=== PATIENT | male | born 1960 | race Caucasian/White ===

== ENCOUNTER 2020-07-08 12:29 | Emergency (ER) | payer OTHER, SELFPAY ==
[2020-07-08 12:53] VITALS: BP 123/81; PULSE 92; RESP 17; TEMP 36.6; O2SAT 97
--- NOTE | 2020-07-08 13:10 | ED_ITS ---
HPI - Nausea/Vomiting/Diarrhea General Chief complaint: General Medical Stated complaint: diarreha Time Seen by Provider: 07/08/20 13:01 Source: patient Mode of arrival: ambulatory Limitations: no limitations History of Present Illness HPI Narrative: 59-year-old male previously healthy here with diarrhea x6 days. Patient reports more than 12 episodes per day of nonbloody stool. No abdominal pain. He has tried going to work twice but with any exertion he starts to feel very lightheaded like he might pass out with associated nausea. He had 1 episode of vomiting with this occurred. No fevers or chills. No recent travel. No sick contacts. No recent antibiotic use. Associated nausea: No Related Data Previous Rx's Medication Instructions Recorded ketoconazole 200 mg tablet 200 mg PO DAILY #30 tab 05/24/20 Allergies Allergy/AdvReac Type Severity Reaction Status Date / Time No Known Allergies Allergy Verified 05/24/20 14:45 Review of Systems Review of Systems: Yes all other systems are reviewed and are negative Constitutional: Constitutional: Reports no additional constitutional complaints, Denies body ache(s), Denies chills, Denies fever(s), Denies headache(s) and Denies weakness Eyes: Eyes: Reports no additional eye complaints and Denies change in vision ENT: Reports system reviewed and no additional complaints, except as documented, Denies dizziness, Denies headache(s), Denies nasal congestion, Denies nasal discharge and Denies neck pain Cardiovascular: Cardiovascular: Reports no additional cardiovascular comp laints, Denies chest pain, Denies leg edema and Denies dyspnea Respiratory: Respiratory: Reports no additional respiratory complaints, Denies cough and Denies dyspnea Gastrointestinal: Gastrointestinal: Reports no additional gastrointestinal complaints, Denies abdominal pain, Reports diarrhea, Denies nausea and Denies vomiting Genitourinary: Genitourinary: Denies urinary incontinence Musculoskeletal: Musculoskeletal: Reports no additional musculoskeletal complaints, Denies back pain, Denies arthralgias, Denies joint swelling, Denies neck pain, Denies numbness and Denies tingling Integumentary/Breasts: Skin/Breast: Reports system reviewed and no additional complaints, except as docu and Denies rash Neurologic: Reports system reviewed and no additional complaints, except as documented, Denies Abnormal speech present, Denies dizziness, Denies headache(s), Denies numbness, Denies tingling and Denies weakness [facility] Past Medical History Attestation statement: The following information was validated with the patient. Source: old records reviewed and nursing notes reviewed Social History Social History Alcohol intake: current Alcohol intake frequency: holidays/special occasions only Smoking Status: Never smoker Use of substances other than those prescribed or required for medical reasons: No Advance Directives: Yes Advance Directives Information Provided: Yes Advance Directives on File: No Physical Exam Vital Signs: Vital Signs: Last Vital Signs Temp 98.5 F 07/08/20 14:17 Pulse 82 07/08/20 14:17 Resp 19 07/08/20 14:17 BP 120/83 07/08/20 14:17 Pulse Ox 98 07/08/20 14:17 Body Mass Index 35.2 Const: General: cooperative, healthy appearing, comfortable and no acute distress Orientation/consciousness: patient oriented x3 Limitations: no limitations HENMT: Head: Yes normal to inspection Ears: hearing grossly normal bilaterally General nose exam: Normal external nose present Face and sinus: Yes normal facial exam Mouth: Normal oral and palatal mucosa present Throat: Yes posterior oropharynx normal Eyes: General: appearance normal, both eyes and all related structures Pupils: Equal, round and reactive pupils present Neck: Neck: Yes normal visual inspection Chest: Chest palpation & inspection: normal inspection of the chest Resp: Effort & Inspection: normal respiratory effort Auscultation: clear to auscultation bilaterally Cardio: Rate: regular rate Rhythm: regular rhythm Peripheral pulses: Peripheral pulses 2+ throughout GI: Inspection: Yes normal to inspection Palpation (GI): Soft to palpation and nontender Auscultation: normal bowel sounds Back/Spine/Pelvis: Thoracic/Lumbar Spine: thoracic and lumbar spine normal to inspection Skin: General skin exam: no rashes or lesions noted Neuro: General: patient oriented x3, no focal motor deficits and normal sensation to monofilament Cranial nerves: Yes Equal, round and reactive pupils present Cognition (Neuro): normal cognition Speech: No Abnormal speech present Gait exam (Neuro): Normal gait present Motor exam (neuro): 5/5 motor strength present throughout Extrem: General: Yes normal to inspection Course Course Course Narrative: 59-year-old male here with diarrhea x6 days with episodes of lightheadedness and nausea with exertion. Will need labs, UA, stool studies, orthostatics vital signs. 1600-labs unremarkable. UA does show concentrated urine so the patient likely has mild dehydration. Orthostatics negative. EKG shows no acute finding. Stool studies are pending. Patient received a L of fluid and feels much better. Will discharge home pending stool studies. Reviewed worrisome signs and symptoms such as severe abdominal pain, to her more vomiting episodes, fever greater than 100.4 when to return to the emergency department. Comfortable discharge home. MDM - Nausea/Vomiting/Diarrhea Differential Diagnosis Differential diagnosis: Likely food poisoning, gastroenteritis, clostridium diff icile infection and dehydration Medical Records Attestation: I reviewed the patient's medical records. Lab Data Attestation: I reviewed the patient's lab results. Result diagrams: 07/08/20 13:32 07/08/20 14:28 Labs: Lab Results 07/08/20 07/08/20 07/08/20 Range/Units 13:32 13:32 14:20 WBC 9.1 (4.8-10.8) X10*3/uL RBC 5.09 (4.60-5.80) X10*6/uL Hgb 14.7 (14.0-18.0) g/dl Hct 43.3 (42-52) % MCV 85.1 (80-98) fL MCH 28.9 (27.0-33.0) pg MCHC 33.9 (31.0-36.0) g/dl RDW 13.2 (11.0-16.0) % Plt Count 273 (160-400) X10*3/uL MPV 9.0 L (9.4-12.4) fL Immature Gran % (Auto) 0.2 (0.0-0.4) % Neut % (Auto) 74.1 H (45-73) % Lymph % (Auto) 16.7 L (20-40) % [place] % (Auto) 7.3 (2-11) % Eos % (Auto) 1.5 (0-4) % Baso % (Auto) 0.2 (0-2) % Lymph # (Auto) 1.5 (1.2-4.9) X10*3/uL [place] # (Auto) 0.7 (0.1-1.2) X10*3/uL Eos # (Auto) 0.1 (0.0-0.4) X10*3/uL Baso # (Auto) 0.0 (0.0-0.2) X10*3/uL Abs Immat Gran (auto) 0.02 (0.00-0.03) X10*3/uL Absolute Neuts (auto) 6.8 (2.0-8.3) X10*3/uL Absolute Nucleated RBC 0.000 (0.0-0.012) X10*3/uL Nucleated RBC % (auto) 0.0 (0.0-0.2) /100WBC Sodium (135-145) mmol/L Potassium (3.3-5.1) mmol/L Chloride (96-108) mmol/L Carbon Dioxide (22-29) mmol/L Anion Gap (12-20) BUN (9-16) mg/dL Creatinine (0.5-1.4) mg/dL Estim Creat Clear Calc Estimated GFR Random Glucose (60-115) mg/dL Calcium (8.4-10.2) mg/dL Magnesium Cancelled Total Bilirubin Cancelled Direct Bilirubin Cancelled AST Cancelled ALT Cancelled Alkaline Phosphatase Cancelled Total Protein Cancelled Albumin Cancelled Urine Color YELLOW Urine Appearance CLOUDY Urine pH 6.0 (5.0-8.0) Ur Specific [place] >= 1.030 H (1.005-1.025) Urine Protein TRACE (NEG-TRACE) MG/DL Urine Glucose (UA) NEG (NEG) MG/DL Urine Ketones NEG (NEG) MG/DL Urine Blood NEG (NEG) Urine Nitrite NEG (NEG) Ur Leukocyte Esterase NEG (NEG) Stool Leukocytes, Qual (NEGATIVE) 07/08/20 07/08/20 Range/Units 14:22 14:28 WBC (4.8-10.8) X10*3/uL RBC (4.60-5.80) X10*6/uL Hgb (14.0-18.0) g/dl Hct (42-52) % MCV (80-98) fL MCH (27.0-33.0) pg MCHC (31.0-36.0) g/dl RDW (11.0-16.0) % Plt Count (160-400) X10*3/uL MPV (9.4-12.4) fL Immature Gran % (Auto) (0.0-0.4) % Neut % (Auto) (45-73) % Lymph % (Auto) (20-40) % [place] % (Auto) (2-11) % Eos % (Auto) (0-4) % Baso % (Auto) (0-2) % Lymph # (Auto) (1.2-4.9) X10*3/uL [place] # (Auto) (0.1-1.2) X10*3/uL Eos # (Auto) (0.0-0.4) X10*3/uL Baso # (Auto) (0.0-0.2) X10*3/uL Abs Immat Gran (auto) (0.00-0.03) X10*3/uL Absolute Neuts (auto) (2.0-8.3) X10*3/uL Absolute Nucleated RBC (0.0-0.012) X10*3/uL Nucleated RBC % (auto) (0.0-0.2) /100WBC Sodium 141 (135-145) mmol/L Potassium 3.9 (3.3-5.1) mmol/L Chloride 110 H (96-108) mmol/L Carbon Dioxide 24 (22-29) mmol/L Anion Gap 11 L (12-20) BUN 18 H (9-16) mg/dL Creatinine 1.02 (0.5-1.4) mg/dL Estim Creat Clear Calc 100.8 Estimated GFR > 60 Random Glucose 98 (60-115) mg/dL Calcium 8.8 (8.4-10.2) mg/dL Magnesium 2.4 Total Bilirubin 0.6 Direct Bilirubin 0.3 AST 34 ALT 73 H Alkaline Phosphatase 61 Total Protein 6.4 L Albumin 4.1 Urine Color Urine Appearance Urine pH (5.0-8.0) Ur Specific [place] (1.005-1.025) Urine Protein (NEG-TRACE) MG/DL Urine Glucose (UA) (NEG) MG/DL Urine Ketones (NEG) MG/DL Urine Blood (NEG) Urine Nitrite (NEG) Ur Leukocyte Esterase (NEG) Stool Leukocytes, Qual NEGATIVE (NEGATIVE) ECG Data Attestation: I personally reviewed and interpreted this ECG as follows: ECG interpretation date: 07/08/20 ECG interpretation time: 14:12 Interpretation: SR with rate 86, normal pr, normal qrs, normal qtc Discharge Plan Discharge Clinical Impression: Diarrhea Qualifiers: Diarrhea type: unspecified type Qualified Code(s): R19.7 - Diarrhea, unspecified Patient Disposition: Home, Self-Care Instructions: Acute Diarrhea (ED) Additional Instructions: We will call you if your stool studies show any bacteria or virus that needs to be treated Increase fluids as much as possible. Change positions slowly Return for severe abdominal pain, two more vomiting episodes, fever greater than 100.4 or black or bloody stools Prescriptions: No Action ketoconazole 200 mg tablet 200 mg PO DAILY Qty: 30 RF: 1 Referrals: Jordan Dominguez, PSYCHOLOGY TECHNICIAN-BC [Primary Care Provider] - 2 days Interventions: ED Discharge Assessment Last Done: 07/08/20 16:19 Discharge Date/Time: 07/08/20 16:19
[2020-07-08 13:12] VITALS: BP 123/81; PULSE 92; RESP 17; TEMP 36.6; O2SAT 97; BMI 35.2
[2020-07-08 13:38] VITALS: BP 127/82; PULSE 82
[2020-07-08 13:38] LABS: MANUAL DIFF FLAG NO
--- NOTE | 2020-07-08 13:38 | ECG_ITS ---
Test Reason : GENERAL MEDICINE Blood Pressure : / mmHG Vent. Rate : 086 BPM Atrial Rate : 086 BPM P-R Int : 122 ms QRS Dur : 094 ms QT Int : 362 ms P-R-T Axes : 254 -09 -36 degrees QTc Int : 433 ms Possible ectopic atrial rhythm Minimal voltage criteria for LVH, may be normal variant Nonspecific T wave abnormality Abnormal ECG No previous ECGs available Referred By: Shira Sheppard Electronically Signed By:UCHE KHANNA
[2020-07-08 13:39] VITALS: BP 129/84; PULSE 83
[2020-07-08 13:40] VITALS: BP 117/79; PULSE 94
[2020-07-08 13:41] LABS: Basophils Percent Auto 0.2 % (0-2); Eosinophils Absolute Auto 0.1 X10*3/uL (0.0-0.4); Eosinophils Percent Auto 1.5 % (0-4); Hematocrit 43.3 % (42-52); Hemoglobin 14.7 g/dl (14.0-18.0); Imm Gran Abs Auto 0.02 X10*3/uL (0.00-0.03); Imm Gran Pct Auto 0.2 % (0.0-0.4); Lymphocytes Absolute Auto 1.5 X10*3/uL (1.2-4.9); Lymphocytes Percent Auto 16.7 % (20-40); Mean Corpuscular HGB Conc 33.9 g/dl (31.0-36.0); Mean Corpuscular Hemoglobin 28.9 pg (27.0-33.0); Mean Corpuscular Volume 85.1 fL (80-98); Monocytes Absolute Auto 0.7 X10*3/uL (0.1-1.2); Monocytes Percent Auto 7.3 % (2-11); Neutrophils Absolute Auto 6.8 X10*3/uL (2.0-8.3); Neutrophils Percent Auto 74.1 % (45-73); Platelet Count 273 X10*3/uL (160-400); Red Blood Count 5.09 X10*6/uL (4.60-5.80); Red Cell Distribution Width 13.2 % (11.0-16.0); White Blood Count 9.1 X10*3/uL (4.8-10.8)
[2020-07-08 14:17] VITALS: BP 120/83; PULSE 82; RESP 19; TEMP 36.9; O2SAT 98
[2020-07-08 14:38] LABS: Appearance Urine CLOUDY; Color Urine YELLOW; Glucose Urine UA NEG (NEG); Leukocyte Esterase Urine NEG (NEG); Nitrite Urine NEG (NEG); Specific Gravity - Urine >= 1.030 (1.005-1.025); Urine Blood NEG (NEG); Urine Ketones NEG (NEG); Urine Protein TRACE MG/DL (NEG-TRACE)
[2020-07-08 14:57] LABS: Leukocytes Stool Qualitative NEGATIVE (NEGATIVE)
[2020-07-08 15:04] LABS: Alanine Aminotransferase 73 U/L (0-40); Albumin Level 4.1 g/dL (3.5-5.0); Alkaline Phosphatase 61 U/L (39-117); Anion Gap 11 (12-20); Aspartate Amino Transferase 34 U/L (5-37); Bilirubin Direct 0.3 mg/dL (0.0-0.5); Bilirubin Total 0.6 mg/dL (0.0-1.0); Blood Urea Nitrogen 18 mg/dL (9-16); Calcium 8.8 mg/dL (8.4-10.2); Carbon Dioxide 24 mmol/L (22-29); Chloride 110 mmol/L (96-108); Creatinine Clr Calc Pharmacy 100.8; Estimated Glomerular Filt Rate > 60; Glucose Random 98 mg/dL (60-115); Magnesium 2.4 mg/dL (1.6-2.6); Potassium 3.9 mmol/L (3.3-5.1); Sodium 141 mmol/L (135-145); Total Protein 6.4 g/dL (6.5-8.0)
[2020-07-08] MEDS: 0.9 % Sodium Chloride 1,000 ML 999 ML IV (15:30)
[2020-07-09 07:47] LABS: CDIFF Ag Negative (Negative); CDIFF Internal ctrl Dots and bkg OK (V); CDiff Toxin Negative (Negative)
== END 2020-07-08 16:19 | disposition home or self-care (01) ==
PROVIDERS: Nurse Practitioner Family; Emergency Provider Emergency Medicine; PCP Nurse Practitioner Family
DX: A07.1 Giardiasis [lambliasis] (principal); R19.7 Diarrhea, unspecified; R42 Dizziness and giddiness
CPT/HCPCS: 36415; 80048; 80076; 81003; 83735; 85025; 87045; 87046; 87177; 87209; 87324; 87449; 89055; 93005; 96360; 99284; 99285

== ENCOUNTER 2020-07-14 08:37 | Emergency (ER) | payer OTHER, SELFPAY ==
--- NOTE | ~2020-07-14 | CT_ITS ---
EXAMINATION: CT ABDOMEN AND PELVIS WITH CONTRAST CLINICAL INFORMATION: Diarrhea. Question colitis. COMPARISON: None. TECHNIQUE: Multidetector CT volumetric acquisition of the abdomen and pelvis was performed after the administration of 85 mL of intravenous Omnipaque 350. 5 minute delayed imaging through the liver was also performed. The data set was reformatted in the sagittal and coronal planes and reviewed on an independent workstation. This CT examination was performed using dose optimization techniques as appropriate, variously including the following: *Automated exposure control *Adjustment of mA and/or kV according to patient size (this includes techniques or standardized protocols for targeted exams where dose is matched to indication/reason for exam; i.e. extremities or head) *Use of iterative reconstruction technique DLP: 1245.00 mGy-cm. FINDINGS: LOWER CHEST: Included lung bases unremarkable. LIVER, GALLBLADDER, BILIARY TREE: Liver normal size and diffusely lower in attenuation compared to the spleen, consistent with hepatic steatosis. Geographic area of relative hyper density is seen in segment 1, consistent with focal fatty sparing. In the subcapsular segment 6, a thin-walled 3.9 x 3.6 cm fluid attenuation mass is seen, consistent with a cyst. No suspicious solid mass or intra-or extrahepatic ductal dilatation. Hepatic and portal veins patent. Gallbladder well distended and within normal limits. PANCREAS: Diffusely atrophic with fatty infiltration seen. No ductal dilatation, mass, or surrounding stranding. SPLEEN: Normal size and appearance. Splenic vein patent. ADRENAL GLANDS AND KIDNEYS: Adrenal glands normal. Kidneys bilaterally symmetric in size and function. There are several bilateral variably sized thin-walled nonenhancing cysts in the kidneys bilaterally. No suspicious focal mass, hydronephrosis, nephrolithiasis or perinephric stranding. URETERS AND BLADDER: Ureters decompressed and within normal limits. Bladder partially distended and within normal limits. PELVIC ORGANS: Unremarkable. GASTROINTESTINAL TRACT: Normal. Small and large bowel loops decompressed and unremarkable. No evidence of abnormal colonic wall thickening or pericolonic fat stranding. Appendix in right lower quadrant normal. ABDOMINAL WALL: There is a small fat-containing umbilical hernia. Small bilateral fat-containing direct inguinal hernias are also seen. LYMPHOVASCULAR STRUCTURES: Abdominal aorta normal in caliber. No periaortic collections. No abdominal or pelvic adenopathy or free fluid collection. BONES: Moderate degenerative disc disease at L5-S1. Mild vertebral spondylosis throughout the lumbar spine. Moderate vertebral spondylosis in lower thoracic spine. Bilateral L5 pars defects seen. CT/CT abdomen pelvis w con IMPRESSION: 1. No evidence of acute colitis. Small and large bowel loops are decompressed and unremarkable. 2. Hepatic steatosis with geographic area of fatty sparing in the caudate lobe. 3. Atrophic pancreas with fatty infiltration seen. 4. Multiple bilateral renal cysts. 5. Small fat-containing umbilical and bilateral inguinal hernias. 6. 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 Moderate degenerative disc disease at L5-S1.
[2020-07-14 09:03] VITALS: BP 139/96; PULSE 86; RESP 18; TEMP 37.1; O2SAT 96; BMI 33.9
--- NOTE | 2020-07-14 09:49 | ED.NAVMDI ---
HPI - Nausea/Vomiting/Diarrhea General Chief complaint: Nausea/Vomiting/Diarrhea Stated complaint: DIARRHEA Time Seen by Provider: 07/14/20 09:15 Source: patient Mode of arrival: ambulatory Limitations: no limitations History of Present Illness HPI Narrative: Patient presents to the ED for diarrhea for the past 12 days. Patient states every time he eats something he has a little lower abdominal discomfort than has diarrhea. states patient has diarrhea all day every day. Patient was seen in recently on july 08 and blood work was normal and C diff and stool culture came back normal. Patient denies any fever, chills, recent long trip, any new antibiotic, or any recent hospital admissions. no one else at home having similar symptoms. Patient states vaccinated to COVID virus. Related Data Previous Rx's Medication Instructions Recorded ketoconazole 200 mg tablet 200 mg PO DAILY #30 tab 05/24/20 ondansetron HCl [Zofran] 4 mg PO Q6H PRN #8 tab 07/14/20 psyllium husk (with sugar) 1 tbsp PO BID 14 Days #1368 g 07/14/20 [Metamucil (with sugar)] Allergies Allergy/AdvReac Type Severity Reaction Status Date / Time No Known Allergies Allergy Verified 05/24/20 14:45 Review of Systems Review of Systems: Yes all other systems are reviewed and are negative Constitutional: Constitutional: Reports as per HPI and Reports no additional constitutional complaints Eyes: Eyes: Reports as per HPI and Reports no additional eye complaints ENT: Reports system reviewed and no additional complaints, except as documented and Reports as per HPI Cardiovascular: Cardiovascular: Reports as per HPI, Reports no additional cardiovascular complaints, Denies chest pain, Denies chest pain at rest and Denies dyspnea Respiratory: Respiratory: Reports as per HPI, Reports no additional respiratory complaints and Denies dyspnea Gastrointestinal: Gastrointestinal: Reports as per HPI, Reports no additional gastrointestinal complaints, Reports abdominal pain, Denies belching, Denies melena, Denies bloating, Denies hematochezia, Denies change in bowel habits, Denies tenesmus, Denies change in stool character, Denies coffee ground emesis, Denies constipation, Denies GI cramping, Denies excessive flatus, Denies early satiety, Denies dyspepsia, Denies heartburn, Denies fecal incontinence, Reports diarrhea, Denies loose stools, Denies nausea, Denies vomiting and Denies hematemesis Musculoskeletal: Musculoskeletal: Reports no additional musculoskeletal complaints and Reports as per HPI Neurologic: Reports system reviewed and no additional complaints, except as documented and Reports as per HPI Psychiatric: Psychiatric: Reports no additional psychiatric complaints and Reports as per HPI [facility] Past Medical History Medical History (Updated 07/14/20 @ 12:24 by CHALINO Lua) Hepatomegaly Social History Social History Alcohol intake: current Alcohol intake frequency: does not drink Patient Tobacco Use Status: Never used Tobacco Use of substances other than those prescribed or required for medical reasons: No Advance Directives: Yes Advance Directives Information Provided: Yes Advance Directives on File: No Physical Exam Vital Signs: Vital Signs: Last Vital Signs Temp 98.7 F 07/14/20 09:03 Pulse 73 07/14/20 10:59 Resp 16 07/14/20 10:59 BP 126/84 07/14/20 10:59 Pulse Ox 98 07/14/20 10:59 Body Mass Index 33.9 Const: General: cooperative, healthy appearing, comfortable, no acute distress, well developed, alert, awake and Physically active Orientation/consciousness: patient oriented x3 HENMT: Head: Yes normal to inspection, Yes No palpable skull fracture present, Yes normocephalic and No atraumatic Eyes: General: appearance normal, both eyes and all related structures Neck: Neck: Yes normal visual inspection, Yes full ROM, Yes no lymphadenopathy, Yes no meningeal signs, Yes trachea midline, Yes supple and No tender Chest: Chest palpation & inspection: normal inspection of the chest and normal palpation of entire chest wall Resp: Effort & Inspection: normal respiratory effort and able to speak in complete sentences Auscultation: clear to auscultation bilaterally Cardio: Jugular venous distension: no JVD Heart sounds: S1 normal heart sound present and S2 normal heart sound present GI: Inspection: Yes normal to inspection and No abdominal wall ecchymosis Palpation (GI): Soft to palpation, not firm, nontender, no guarding and not rigid : General: No CVA tenderness and Yes no CVA tenderness Back/Spine/Pelvis: Back: no CVA tenderness, No CVA tenderness and No back tenderness Skin: General skin exam: no rashes or lesions noted and elasticity normal Neuro: General: patient oriented x3, gait normal, no meningeal signs and CN's II-XI intact bilaterally Cranial nerves: Yes CN's II-XII intact bilaterally Extrem: General: Yes normal to inspection and Yes full ROM Psych: Appearance: grossly normal, well kempt and not disheveled Course Course Course Narrative: Patient have labs redrawn to evaluate for dehydration. Patient will have COVID swab. Will send patient for CT scan to rule out any colitis. No need to repeat C diff or stool culture that were negative from last visit. Reevaluation(s) Reevaluation #1: Labs came back normal. Negative for elevated blood cell count or electrolyte abnormality. Abdominal CT scan does not show any colitis. Abdominal CT scan does not show any acute/medical/surgical etiology. Patient will be discharged with Metamucil. Patient educated on brat diet. 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 Patient given copy of labs and imaging to follow-up with PCP. states he has appointment tomorrow with PCP MDM - Nausea/Vomiting/Diarrhea MDM Narrative Medical decision making narrative: Diarrhea Lab Data Result diagrams: 07/14/20 10:00 07/14/20 10:00 Labs: Lab Results 07/14/20 07/14/20 07/14/20 Range/Units 10:00 10:00 10:00 WBC 9.7 (4.8-10.8) X10*3/uL RBC 5.30 (4.60-5.80) X10*6/uL Hgb 15.3 (14.0-18.0) g/dl Hct 45.4 (42-52) % MCV 85.7 (80-98) fL MCH 28.9 (27.0-33.0) pg MCHC 33.7 (31.0-36.0) g/dl RDW 13.2 (11.0-16.0) % Plt Count 282 (160-400) X10*3/uL MPV 9.2 L (9.4-12.4) fL Immature Gran % (Auto) 0.3 (0.0-0.4) % Neut % (Auto) 73.4 H (45-73) % Lymph % (Auto) 18.1 L (20-40) % [place] % (Auto) 6.6 (2-11) % Eos % (Auto) 1.2 (0-4) % Baso % (Auto) 0.4 (0-2) % Lymph # (Auto) 1.8 (1.2-4.9) X10*3/uL [place] # (Auto) 0.6 (0.1-1.2) X10*3/uL Eos # (Auto) 0.1 (0.0-0.4) X10*3/uL Baso # (Auto) 0.0 (0.0-0.2) X10*3/uL Abs Immat Gran (auto) 0.03 (0.00-0.03) X10*3/uL Absolute Neuts (auto) 7.1 (2.0-8.3) X10*3/uL Absolute Nucleated RBC 0.000 (0.0-0.012) X10*3/uL Nucleated RBC % (auto) 0.0 (0.0-0.2) /100WBC PT (10.8-13.0) SEC INR (0.9-1.1) APTT (24.1-38.0) SEC Sodium 141 (135-145) mmol/L Potassium 3.8 (3.3-5.1) mmol/L Chloride 108 (96-108) mmol/L Carbon Dioxide 22 (22-29) mmol/L Anion Gap 15 (12-20) BUN 14 (9-16) mg/dL Creatinine 1.02 (0.5-1.4) mg/dL Estim Creat Clear Calc 98.8 Estimated GFR > 60 Random Glucose 84 (60-115) mg/dL Calcium 9.0 (8.4-10.2) mg/dL Magnesium 2.2 (1.6-2.6) mg/dL Total Bilirubin 0.6 (0.0-1.0) mg/dL Direct Bilirubin 0.2 (0.0-0.5) mg/dL AST 25 (5-37) U/L ALT 39 (0-40) U/L Alkaline Phosphatase 72 (39-117) U/L Total Protein 6.3 L (6.5-8.0) g/dL Albumin 3.9 (3.5-5.0) g/dL Lipase 26 (8-78) U/L COVID-19 (ANNE) Negative (Negative) COVID-19 Clin Com See Note 07/14/20 Range/Units 10:00 WBC (4.8-10.8) X10*3/uL RBC (4.60-5.80) X10*6/uL Hgb (14.0-18.0) g/dl Hct (42-52) % MCV (80-98) fL MCH (27.0-33.0) pg MCHC (31.0-36.0) g/dl RDW (11.0-16.0) % Plt Count (160-400) X10*3/uL MPV (9.4-12.4) fL Immature Gran % (Auto) (0.0-0.4) % Neut % (Auto) (45-73) % Lymph % (Auto) (20-40) % [place] % (Auto) (2-11) % Eos % (Auto) (0-4) % Baso % (Auto) (0-2) % Lymph # (Auto) (1.2-4.9) X10*3/uL [place] # (Auto) (0.1-1.2) X10*3/uL Eos # (Auto) (0.0-0.4) X10*3/uL Baso # (Auto) (0.0-0.2) X10*3/uL Abs Immat Gran (auto) (0.00-0.03) X10*3/uL Absolute Neuts (auto) (2.0-8.3) X10*3/uL Absolute Nucleated RBC (0.0-0.012) X10*3/uL Nucleated RBC % (auto) (0.0-0.2) /100WBC PT 13.1 H (10.8-13.0) SEC INR 1.1 (0.9-1.1) APTT 35.2 (24.1-38.0) SEC Sodium (135-145) mmol/L Potassium (3.3-5.1) mmol/L Chloride (96-108) mmol/L Carbon Dioxide (22-29) mmol/L Anion Gap (12-20) BUN (9-16) mg/dL Creatinine (0.5-1.4) mg/dL Estim Creat Clear Calc Estimated GFR Random Glucose (60-115) mg/dL Calcium (8.4-10.2) mg/dL Magnesium (1.6-2.6) mg/dL Total Bilirubin (0.0-1.0) mg/dL Direct Bilirubin (0.0-0.5) mg/dL AST (5-37) U/L ALT (0-40) U/L Alkaline Phosphatase (39-117) U/L Total Protein (6.5-8.0) g/dL Albumin (3.5-5.0) g/dL Lipase (8-78) U/L COVID-19 (ANNE) (Negative) COVID-19 Clin Com Discharge Plan Discharge Clinical Impression: Diarrhea Patient Disposition: Home, Self-Care Instructions: Chronic Diarrhea (ED) Additional Instructions: Return to the ED immediately for blood in stool, dizziness, weakness, low blood pressure, severe abdominal pain, flank pain, fever, chills, or any other concerning symptoms. Recommend BRAT ( Bananas, Rice, Apple Sauce, [place]) Diet Prescriptions: New Metamucil (with sugar) 3.4 gram/12 gram powder 1 tbsp PO BID 14 Days Qty: 1368 RF: 0 ondansetron HCl [Zofran] 4 mg tablet 4 mg PO Q6H PRN (Reason: nausea) Qty: 8 RF: 0 No Action ketoconazole 200 mg tablet 200 mg PO DAILY Qty: 30 RF: 1 Referrals: Jordan Dominguez FNP- [Primary Care Provider] - 2 days (Diarrhea for 12 days. COVID swab negative. Labs are normal. C diff and stool culture negative. Abdominal CT scan negative for colitis.) Sergio Alcala [Physician] - 2 days (Nares for 12 days. COVID swab negative. Labs are normal. CT scan negative for colitis. C diff and stool culture negative) Stand Alone Forms: Work/School Release Interventions: ED Discharge Assessment Last Done: 07/14/20 12:50 Discharge Date/Time: 07/14/20 12:52 Print Language: [place]
[2020-07-14] MEDS: 0.9 % Sodium Chloride 1,000 ML 999 ML IV ×2 (10:01)
[2020-07-14 10:06] LABS: MANUAL DIFF FLAG NO
--- NOTE | 2020-07-14 10:10 | PC.NURSE ---
Pt resting quietly on stretcher, IV established and labs sent. Fluids infusing as ordered.
[2020-07-14 10:16] LABS: Basophils Percent Auto 0.4 % (0-2); Eosinophils Absolute Auto 0.1 X10*3/uL (0.0-0.4); Eosinophils Percent Auto 1.2 % (0-4); Hematocrit 45.4 % (42-52); Hemoglobin 15.3 g/dl (14.0-18.0); Imm Gran Abs Auto 0.03 X10*3/uL (0.00-0.03); Imm Gran Pct Auto 0.3 % (0.0-0.4); Lymphocytes Absolute Auto 1.8 X10*3/uL (1.2-4.9); Lymphocytes Percent Auto 18.1 % (20-40); Mean Corpuscular HGB Conc 33.7 g/dl (31.0-36.0); Mean Corpuscular Hemoglobin 28.9 pg (27.0-33.0); Mean Corpuscular Volume 85.7 fL (80-98); Mean Platelet Volume 9.2 fL (9.4-12.4); Monocytes Absolute Auto 0.6 X10*3/uL (0.1-1.2); Monocytes Percent Auto 6.6 % (2-11); Neutrophils Absolute Auto 7.1 X10*3/uL (2.0-8.3); Neutrophils Percent Auto 73.4 % (45-73); Platelet Count 282 X10*3/uL (160-400); Red Cell Distribution Width 13.2 % (11.0-16.0); White Blood Count 9.7 X10*3/uL (4.8-10.8)
[2020-07-14 10:22] LABS: COVID-19 Test Negative (Negative); INTERNATIONAL NORM RATIO 1.1 (0.9-1.1); Prothrombin Time 13.1 SEC (10.8-13.0)
[2020-07-14 10:25] LABS: Partial Thromboplastin Time 35.2 SEC (24.1-38.0)
[2020-07-14 10:38] LABS: Alanine Aminotransferase 39 U/L (0-40); Albumin Level 3.9 g/dL (3.5-5.0); Alkaline Phosphatase 72 U/L (39-117); Anion Gap 15 (12-20); Aspartate Amino Transferase 25 U/L (5-37); Bilirubin Direct 0.2 mg/dL (0.0-0.5); Bilirubin Total 0.6 mg/dL (0.0-1.0); Blood Urea Nitrogen 14 mg/dL (9-16); Carbon Dioxide 22 mmol/L (22-29); Chloride 108 mmol/L (96-108); Creatinine Clr Calc Pharmacy 98.8; Estimated Glomerular Filt Rate > 60; Glucose Random 84 mg/dL (60-115); Lipase 26 U/L (8-78); Magnesium 2.2 mg/dL (1.6-2.6); Potassium 3.8 mmol/L (3.3-5.1); Sodium 141 mmol/L (135-145); Total Protein 6.3 g/dL (6.5-8.0)
[2020-07-14 10:59] VITALS: BP 126/84; PULSE 73; RESP 16; O2SAT 98
--- NOTE | 2020-07-14 11:00 | PC.NURSE ---
Out of room for CT scan at this time
[2020-07-14] MEDS: iohexoL 350 MG/ML 100 ML INFUS..BTL IV (11:37)
== END 2020-07-14 12:52 | disposition home or self-care (01) ==
PROVIDERS: Physician Assistant; Emergency Provider Emergency Medicine Emergency Medical Services; PCP Nurse Practitioner Family
DX: R19.7 Diarrhea, unspecified (principal); Z20.822 Contact with and (suspected) exposure to COVID-19
CPT/HCPCS: 36415; 74177; 80053; 80076; 82248; 83690; 83735; 85025; 85610; 85730; 87635; 96360; 99284; Q9967

== ENCOUNTER → 2020-08-27 07:36 | Outpatient (REF) | payer OTHER, SELFPAY ==
--- NOTE | 2020-08-27 07:40 | CA_ITS ---
Transthoracic Echocardiogram Patient (Last, First, Middle): Audi Wagoner J Gender: Male Date of : 1960 Age: 59 Procedure Date: 08/27/2020 Procedure Type: Transthoracic Echocardiogram Location: OP Height: 182.88 cm Weight: 111.13 kg BSA: 2.32 m2 Heart Rate: bpm BP: 146 / 88 mmHg Merchandising Representative: LEN Referring MD: Jordan Dominguez [facility] Asphalt Distributor Tender: César Rodrigez MD Symptoms: R01.1 - Cardiac murmur, unspecified Study Quality: Fair ECG Rhythm: Sinus Conclusions: - 1. Normal LV systolic function with grade 1 diastolic dysfunction 2. Possible bicuspid aortic valve with mild aortic stenosis and trace aortic regurgitation 3. Mildly dilated ascending aorta 4. Normal RV systolic pressure 5. No gross pericardial effusion Findings Left Ventricle Normal left ventricular size, thickness, and systolic function. The visually estimated ejection fraction is between 55-60%. Spectral Doppler is indicative of an impaired relaxation filling pattern. E/E prime ratio is <8, consistent with normal filling pressures. Evidence suggests grade I (mild) diastolic dysfunction. Right Ventricle Normal right ventricular cavity size and systolic function. Atria Both atria are normal in size. There is no evidence of interatrial shunt. Aortic Valve There is mild calcification of the aortic valve. There is mild aortic valve stenosis. There is trace (trivial) aortic valve regurgitation. A bicuspid valve cannot be entirely ruled out on this study Mitral Valve Likely normal mitral valve structure and function. There is trace mitral valve regurgitation. There is no mitral valve stenosis. Pulmonic Valve The pulmonic valve was not well visualized. Tricuspid Valve Likely normal tricuspid valve structure and function. There is trace tricuspid valve regurgitation. The right ventricular systolic pressure is normal. The right ventricular systolic pressure is 28 mmHg. Normal right atrial pressure. There is no evidence of pulmonary hypertension. Great Vessels The pulmonary artery was not well visualized. There is mild dilatation of the ascending aorta measuring 4.10 cm. Venous The inferior vena cava is normal in size and collapses greater than 50% with inspiration. Pericardium/Pleural There is no evidence of pericardial effusion. Prior Study Comparison No prior study available for comparison. Measurements 2D Linear Measurements RVIDd: 3.78 RVIDd Index: 1.63 IVSd: 1.08 0.6-0.9/0.6-1.0 cm LVIDd: 5.32 3.9-5.3/4.2-5.9 cm LVIDd Index: 2.29 2.4-3.2/2.2-3.1 cm/m2 LVIDs: 4.19 2.0-3.6 cm LVPWd: 1.33 0.7-1.1 cm Ao Root: 3.90 2.1-3.5 cm LA Diam: 3.40 2.7-3.8/3.0-4.0 cm LAIDs Index: 1.47 1.5-2.3 cm/m2 LV Mass: 323.77 67-162/88-224 g LV Mass Index: 139.56 43-95/49-115 g/m2 LVOT Diam: 2.50 3.0+(-)1.3 cm 2D Systolic Function EF 4C: 30.80 >55% EF 2C: 50.20 >55% Mitral Valve MV Pk E: 0.60 MV PK A: 0.72 MV Decel Time: 165.00 E/A: 0.80 E'Lateral: 7.18 E'Medial: 3.81 E/E' Med: 15.90 E/E' Lat: 8.40 Aortic Valve AoV Pk Walt: 2.41 AoV Mn Walt: 2.06 AoV VTI: 0.51 AoV Pk Grad: 23.00 Aov Mn Grad: 18.00 AMANDA Cont.VTI: 1.80 LVOT LVOT Pk Walt: 0.93 LVOT Mn Walt: 0.62 LVOT VTI: 0.19 LVOT Pk Grad: 3.00 LVOT Mn Grad: 2.00 LVOT Diam: 2.50 LVOT Area: 4.91 Diastolic Function MV Pk E: 0.60 MV Pk A: 0.72 E/A: 0.80 E'Medial: 3.81 E/E' Med: 15.90 E' Laterial: 7.18 E/E' Lat: 8.40 Right Ventricle TAPSE (mm): 2.87 Tricuspid Valve TR Pk Walt: 2.50 TR Pk Grad: 25.00 RA Press: 3.00 RVSP: 28.00 Great Vessels Aorta Ao Root-2D: 3.90 2.0-3.7 cm Ao Asc: 4.10 2.1-3.4 cm Ao Arch: 3.50 Updated in Other Vendor System with Status of Final César Rodrigez MD electronically signed on 08/28/2020 8:23:02 AM with status of Final
== END ==
LOC: HO.CARD 07:36
PROVIDERS: Visit Provider Nurse Practitioner Family
DX: R01.1 Cardiac murmur, unspecified (principal)
CPT/HCPCS: 93306

== ENCOUNTER 2022-10-14 15:57 | Outpatient (AMB) | payer OTHER, SELFPAY ==
--- NOTE | 2022-10-14 16:14 | MHC.PC.OV ---
Vital Signs 10/14/22 16:15 Height 6 ft Weight 265 lb 8 oz BMI 36.0 BP 120/82 Blood Pressure Location Rt brachial Position Sitting Pulse 92 Pulse Source Pulse Oximeter Pulse Oximetry (%) 96 Oxygen Delivery Method Room Air Intake Visit Reasons: PE Allergies No Known Allergies Allergy (Verified 10/14/22 16:18) Medication List - Last Reconciled 10/14/22 by BRIJESH CesarTREMAYNE ketoconazole 200 mg PO DAILY Tobacco use date assessed: 10/14/22 Dental Screening Dental Screen Date: 10/14/22 Did you have a dental visit in the last 12 months?: Yes Did you have a dental problem in the last 6 months where you did not have access to dental care?: No Was dental information given to patient?: Patient has dentist HPI PE HPI Details Pt is here for a PE. Will order labs. Colon screen is up to date, i have another one scheduled . Due for PSA, will order. reports dribbling with urination, weak stream, and nocturia. He reports it is not bad enough to start medication. Will await PSA testing, ABDELRAHMAN with slightly enlarged prostate. Pt reports he was told he has sleep apnea, will refer for sleep study/eval and treatment. pt reports intermittent ED, will check T levels. [facility] Medical History (Updated 10/14/22 @ 17:36 by BRIJESH CesarTREMAYNE) Hepatomegaly Mild aortic valve stenosis Social History Housing: House Alcohol intake: current Alcohol intake frequency: does not drink Patient Tobacco Use Status: Never used Tobacco e-Cigarette/Vaping Use: Never Used service: No Current occupational status: employed Current occupation: [employer] Current occupational exposures/hazards: Yes Cognitive needs: No Hearing needs: No Vision needs: No Review of Systems Const Denies chills and Denies fever(s) Eyes Denies blurry vision ENT Denies vertigo, Denies dizziness and Denies sore throat Card Denies chest pain at rest, Denies chest pain with activity, Denies diaphoresis, Denies dyspnea and Denies dyspnea on exertion Resp Denies cough, Denies dyspnea, Denies dyspnea on exertion and Denies wheezing GI Denies abdominal pain, Denies melena, Denies hematochezia, Denies constipation, Denies diarrhea and Denies loose stools Denies hematuria Musc Denies numbness and Denies tingling Skin/Breast Denies lesions Neuro Denies vertigo, Denies dizziness, Denies numbness and Denies tingling Psych Denies anxiety, Denies depression, Denies homicidal ideation, Denies suicidal ideation and Denies other (substance abuse) Aller/Immun Denies wheezing Physical exam (Primary Care) Vital Signs: Last Vital Signs Pulse 92 10/14/22 16:15 BP 120/82 10/14/22 16:15 Pulse Ox 96 10/14/22 16:15 Oxygen Delivery Method Room Air 10/14/22 16:15 BMI result Body Mass Index 36.0 Tobacco/Smoking Status: Tobacco use Status Tobacco use date assessed 10/14/22 10/14/22 16:21 Patient Tobacco Use Status Never used Tobacco 10/14/22 16:17 e-Cigarette/Vaping Use Never Used 10/14/22 16:21 Const General: cooperative Nutritional Appearance: obese Orientation/consciousness: patient oriented x3 HENMT Head: Yes normal to inspection, Yes normocephalic and Yes atraumatic Ears: TM's normal bilaterally Eyes General: appearance normal, both eyes and all related structures Alignment and Position: alignment normal and position normal Neck Neck: Yes normal visual inspection and Yes no lymphadenopathy Thyroid: Thyroid normal Resp Effort & Inspection: normal respiratory effort Auscultation: clear to auscultation bilaterally Cardio Rate: regular rate Rhythm: regular rhythm Heart sounds: S1 normal heart sound present, S2 normal heart sound present and Murmur heart sound present systolic GI Palpation (GI): Soft to palpation and nontender Auscultation: normal bowel sounds Other: ABDELRAHMAN, slightly enlarged prostate, no nodules palpated, smooth central groove Male General Exam: Yes normal external exam Penis: normal penis Scrotum: scrotum normal, testes descended bilaterally and no inguinal hernias Testes: no testicular mass Skin Rashes: no rashes Neuro General: patient oriented x3, moves all extremities, no focal motor deficits and deep tendon reflexes 2+ bilaterally Romberg Test: Negative Psych Appearance: grossly normal Mental Status: mental status grossly normal Speech and movement: Normal speech and movement present Affect: normal affect Attitude: cooperative Thought process: Normal thought process present Thought content: Normal thought content present Insight: Good insight present (Psych) Judgement: Good judgement present (Psych) Assessment and Plan Assessment & Plan (1) Physical exam: Code(s): Z00.00 - Encounter for general adult medical examination without abnormal findings (2) Screening PSA (prostate specific antigen): Code(s): Z12.5 - Encounter for screening for malignant neoplasm of prostate (3) Erectile dysfunction: Code(s): N52.9 - Male erectile dysfunction, unspecified (4) Systolic murmur: Code(s): R01.1 - Cardiac murmur, unspecified (5) Mild aortic valve stenosis: Code(s): I35.0 - Nonrheumatic aortic (valve) stenosis (6) Sleep apnea: Code(s): G47.30 - Sleep apnea, unspecified Orders: Orders Comprehensive [place]. Panel Fast Today Z00.00 - Encounter for general adult medical examination without abnormal findings Lipid Panel Today Z00.00 - Encounter for general adult medical examination without abnormal findings TSH reflex Free T4 Today Z00.00 - Encounter for general adult medical examination without abnormal findings Complete Blood Count Auto Diff Today Z00.00 - Encounter for general adult medical examination without abnormal findings UA CC w/rflx Micro + Cult Today Z00.00 - Encounter for general adult medical examination without abnormal findings Prostate Specific Antigen Scr Today Z12.5 - Encounter for screening for malignant neoplasm of prostate Testosterone, Free/Total Today N52.9 - Male erectile dysfunction, unspecified CA echo transthoracic complete Today I35.0 - Nonrheumatic aortic (valve) stenosis, R01.1 - Cardiac murmur, unspecified AMB EKG-In Office Today Z00.00 - Encounter for general adult medical examination without abnormal findings Referrals Sleep Medicine Referral G47.30 - Sleep apnea, unspecified Coding Level of Care Code Est Pt Prev Care 40-64y([id number]) Diagnoses Physical exam Z00.00 Screening PSA (prostate specific antigen) Z12.5 Erectile dysfunction N52.9 Systolic murmur R01.1 Mild aortic valve stenosis I35.0 Sleep apnea G47.30
[2022-10-14 16:15] VITALS: BP 120/82; PULSE 92; O2SAT 96; BMI 36.0
== END 2022-10-14 17:31 | disposition home or self-care (01) ==
PROVIDERS: Visit Provider Nurse Practitioner Family
DX: Z00.00 Encounter for general adult medical examination without abnormal findings (principal); Z12.5 Encounter for screening for malignant neoplasm of prostate; N52.9 Male erectile dysfunction, unspecified; R01.1 Cardiac murmur, unspecified; I35.0 Nonrheumatic aortic (valve) stenosis; G47.30 Sleep apnea, unspecified
CPT/HCPCS: 99396

== ENCOUNTER 2023-01-30 08:43 | Emergency (ER) | payer OTHER, SELFPAY ==
[2023-01-30] VITALS (7 sets, daily range): BP systolic 121–157; BP diastolic 81–100; PULSE 68–86; RESP 15–20; TEMP 36.6; O2SAT 95–100; BMI 36.3
--- NOTE | ~2023-01-30 | CT_ITS ---
EXAMINATION: CT HEAD WITHOUT CONTRAST CLINICAL INFORMATION: Dizziness and vomiting. COMPARISON: None available. TECHNIQUE: Contiguous axial imaging was performed from the skull base to vertex without intravenous administration of contrast. This CT examination was performed using dose optimization techniques as appropriate, variously including the following: *Automated exposure control *Adjustment of mA and/or kV according to patient size (this includes techniques or standardized protocols for targeted exams where dose is matched to indication/reason for exam; i.e. extremities or head) *Use of iterative reconstruction technique DLP: 763 mGy-cm FINDINGS: There is no acute intra-axial, extra-axial bleed, masses or midline shift. There is no acute infarction in evolution. The cantu to white matter differentiation is maintained normal. The lateral ventricles are symmetrical in size and configuration with minimal prominence bone windows reveal no calvarial abnormality. Bone windows reveal no calvarial abnormality. There is no scalp soft tissue amount. Bilateral paranasal sinuses and mastoid air cells are well-aerated. CT/CT head/brain wo IV con IMPRESSION: No acute intracranial process seen.
--- NOTE | 2023-01-30 08:45 | ECG_ITS ---
Test Reason : dizziness/cardiac Blood Pressure : / mmHG Vent. Rate : 079 BPM Atrial Rate : 079 BPM P-R Int : 168 ms QRS Dur : 096 ms QT Int : 388 ms P-R-T Axes : 173 -11 -26 degrees QTc Int : 444 ms Unusual P axis, possible ectopic atrial rhythm Minimal voltage criteria for LVH, may be normal variant ( R in aVL ) Nonspecific T wave abnormality Abnormal ECG When compared with ECG of 08-JUL-2020 14:12, No significant changes seen Referred By: Generic ED Physician Electronically Signed By:Az Lam
[2023-01-30 09:47] LABS: MANUAL DIFF FLAG NO
[2023-01-30 09:56] LABS: Basophils Percent Auto 0.4 % (0-2); Eosinophils Absolute Auto 0.1 X10*3/uL (0.0-0.4); Eosinophils Percent Auto 1.9 % (0-4); Hematocrit 44.9 % (42.0-52.0); Hemoglobin 15.3 g/dl (14.0-18.0); Imm Gran Abs Auto 0.02 X10*3/uL (0.00-0.03); Imm Gran Pct Auto 0.3 % (0.0-0.4); Lymphocytes Absolute Auto 1.1 X10*3/uL (1.2-4.9); Lymphocytes Percent Auto 15.9 % (20-40); Mean Corpuscular HGB Conc 34.1 g/dl (31.0-36.0); Mean Corpuscular Hemoglobin 28.6 pg (27.0-33.0); Mean Corpuscular Volume 83.9 fL (80.0-98.0); Mean Platelet Volume 9.6 fL (9.4-12.4); Monocytes Absolute Auto 0.4 X10*3/uL (0.1-1.2); Monocytes Percent Auto 5.6 % (2-11); Neutrophils Absolute Auto 5.3 x10*3/uL (2.0-8.3); Neutrophils Percent Auto 75.9 % (45-73); Platelet Count 226 X10*3/uL (160-400); Red Blood Count 5.35 X10*6/uL (4.60-5.80); Red Cell Distribution Width 12.7 % (11.0-16.0)
[2023-01-30 10:27] LABS: Anion Gap 15 (12-20); Blood Urea Nitrogen 20 mg/dL (9-16); Calcium 8.8 mg/dL (8.4-10.2); Carbon Dioxide 20 mmol/L (22-29); Chloride 109 mmol/L (96-108); Creatinine Clr Calc Pharmacy 105.7; Estimated Glomerular Filt Rate > 60; Glucose Random 120 mg/dL (60-115); Potassium 4.4 mmol/L (3.3-5.1); Sodium 140 mmol/L (135-145)
[2023-01-30 10:34] LABS: Troponin-I High Sensitivity 5.9 ng/L (<3.5-35.0)
[2023-01-30 11:55] LABS: Appearance Urine Clear; Color Urine Yellow; Glucose Urine UA Negative (Negative); Leukocyte Esterase Urine Negative (Negative); Nitrite Urine Negative (Negative); Specific Gravity - Urine 1.015 (1.005-1.025); Urine Blood Negative (Negative); Urine Ketones Negative (Negative); Urine Protein Negative (Neg-Trace)
--- NOTE | 2023-01-30 12:17 | PC.NURSE ---
This RN assumed care of patient at 1100, patient resting on stretcher, appears comfortable, offers no complaints to this RN at this time. Pt states his dizziness is resolved at this time, states he is having no CP/SOB. VSS. Pt denies dizziness with change in position. respirations even and unlabored, skin pwd, alert and oriented x4. CHALINO Kumar aware
--- NOTE | 2023-01-30 12:35 | ED.GENADULT ---
HPI - General Adult General Chief complaint: Dizziness Stated complaint: Dizziness/Abnormal ekg the other day Time Seen by Provider: 01/30/23 12:02 Source: patient Mode of arrival: ambulatory Limitations: no limitations History of Present Illness HPI narrative: 62-year-old male history of gardia, mild aortic valve stenosis, arthritis of left knee, sleep apnea, systolic mummur, vertigo presents to ED for dizziness with nausea/vomitting. Patient states dizziness for many years and has been told he has had vertigo. Patient states off and on dizziness since Tuesday described as off balance room spinning and states also left inner ear feels full. Patient denies any ringing in the ear or bleeding from the ear. Patient denies any syncopal episode, loss of consciousness, slurred speech, facial droop, paralysis of extremities, loss of vsion or inability to walk. Patient states presently he has no dizziness. Patient denies any chest pain or shortness of breath. Patient denies any recent head trauma. Patient was seen urgent care on Tuesday and states he had unusual EKG but no signs of heart attack. Patient denies any rectal bleeding, vomitting blood, or coughing up blood. Related Data Previous Rx's Medication Instructions Recorded ketoconazole 200 mg tablet 200 mg PO DAILY #30 tabs 05/24/20 meclizine 25 mg tablet 25 mg PO BID PRN dizziness 10 days 01/30/23 #20 tabs Allergies Allergy/AdvReac Type Severity Reaction Status Date / Time No Known Allergies Allergy Verified 01/30/23 08:47 Review of Systems Review of Systems: Resolved dizziness. Yes all other systems are reviewed and are negative [facility] Past Medical History Medical History (Updated 01/31/23 @ 00:01 by Caroline Elliott) Mild aortic valve stenosis Hepatomegaly Social History Social History Housing: House Alcohol intake: current Alcohol intake frequency: holidays/special occasions only Patient Tobacco Use Status: Never used Tobacco Smoked in Last 30 Days: No e-Cigarette/Vaping Use: Never Used Use of substances other than those prescribed or required for medical reasons: No Advance Directives: No Advance Directives Information Provided: Yes service: No Current occupational status: employed Current occupation: [employer] Current occupational exposures/hazards: Yes Cognitive needs: No Hearing needs: No Vision needs: No Physical Exam ED Vital Signs: Vital Signs - 24 hr 01/30/23 09:06 01/30/23 10:11 01/30/23 11:35 Temperature 97.8 F Pulse Rate 71 68 75 Respiratory Rate 18 15 20 Blood Pressure 136/81 145/91 H 157/92 H Pulse Oximetry 95 97 100 Oxygen Delivery Method Room Air Room Air Room Air 01/30/23 12:08 01/30/23 12:34 01/30/23 12:36 Temperature Pulse Rate 77 77 82 Respiratory Rate 16 Blood Pressure 139/88 121/96 H 128/87 Pulse Oximetry 96 Oxygen Delivery Method Room Air 01/30/23 12:37 Temperature Pulse Rate 86 Respiratory Rate Blood Pressure 132/100 H Pulse Oximetry Oxygen Delivery Method BMI result Body Mass Index 36.3 Const General: cooperative, healthy appearing, comfortable, no acute distress, well developed, alert, awake and Physically active Orientation/consciousness: oriented to person, oriented to place, oriented to time and patient oriented x3 HENMT Head: Yes normal to inspection, Yes No palpable skull fracture present, Yes normocephalic and Yes atraumatic Ears: hearing grossly normal bilaterally, external ears normal, TM's normal bilaterally, TM normal on the right, TM normal on the left, EAC's normal, mastoids normal and no periauricular adenopathy Eyes General: appearance normal, both eyes and all related structures Visual Sheffield: normal visual sheffield by confrontation Alignment and Position: alignment normal Periorbital: periorbital findings normal Eyelids: Yes eyelids normal Conjunctivae: conjunctivae normal Sclerae: sclerae normal Corneas: corneas normal Pupils: Equal, round and reactive pupils present EOM: EOMs intact bilaterally Neck Neck: Yes normal visual inspection, Yes full ROM, Yes no lymphadenopathy, Yes no meningeal signs, Yes trachea midline, Yes supple, No anterior neck swelling and No tender Chest Chest palpation & inspection: normal inspection of the chest and normal palpation of entire chest wall Resp Effort & Inspection: normal respiratory effort and able to speak in complete sentences Auscultation: clear to auscultation bilaterally Cardio Jugular venous distension: no JVD Heart sounds: S1 normal heart sound present and S2 normal heart sound present GI Inspection: Yes normal to inspection and No abdominal wall ecchymosis Palpation (GI): Soft to palpation, not firm, nontender, no guarding and not rigid General: No CVA tenderness and Yes no CVA tenderness Back/Spine/Pelvis Back: no CVA tenderness, No CVA tenderness and No back tenderness Skin General skin exam: no rashes or lesions noted, elasticity normal and turgor normal Neuro Other: Negative facial droop. Negative slurred speech. Negative paralysis of extremities. Negative pronator drift. Negative nystagmus. Negative Romberg. Cudakh-of-fzzu and rapid hand movment in tact General: oriented to person, oriented to place, oriented to time, patient oriented x3, gait normal, tone normal, moves all extremities, Normal light touch and pain sensation, no meningeal signs, no focal motor deficits, CN's II-XI intact bilaterally and normal sensation to monofilament Cranial nerves: Yes Equal, round and reactive pupils present Extrem General: Yes normal to inspection and Yes full ROM Psych Appearance: grossly normal, well kempt and not disheveled Medical Decision Making Medical Decision Making [facility] Narrative: 62-year-old male history of vertigo, arthritis left knee, regarding function disorder and systolic murmur presents to the ED for resolved dizziness that has been chronic for many years but recent exacerbation the past 4 days. Patient denies any stroke-like symptoms. Patient came to the ED to be evaluated. No change in EKG. Initial troponin negative. Patient denies any chest pain. NIH score 0. Unlikely stroke but was sent for head CT scan. Repeat troponin ordered. Orthostatics ordered. 1:53PM: Orthostatics negative. Urine negative. Head CT scan normal. NIH score 0. Patient has normal gait. Patient presently denies dizziness. Not suspecting posterior cerebellar stroke. Negative any nystagmus presently. Not suspecting any carotid blockage or vertebral artery dissection or carotid blockage. Once again patient presently negative for any dizziness and negative nystagmus. Neuro deficits intact. Patient informed to follow-up with primary care provider. EKG shows no new changes. Troponin seb not increase by 50%. Patient informed to follow-up with ENT. Patient will be discharged meclizine. Negative for signs of anemia. Differential Diagnosis Differential Diagnoses: The differential diagnosis associated with the presentation includes (vertigo, dehyrdration, UTI, anenmia, AK, Stroke) Admission/Observation Consideration of admission/observation: Escalation of care including admission/observation considered Lab Data [facility] Lab Attestation statement: I reviewed the patient's lab results. 01/30/23 09:43 01/30/23 09:43 Labs: Lab Results 01/30/23 01/30/23 01/30/23 Range/Units 09:43 11:49 12:45 WBC 7.0 (4.8-10.8) X10*3/uL RBC 5.35 (4.60-5.80) X10*6/uL Hgb 15.3 (14.0-18.0) g/dl Hct 44.9 (42.0-52.0) % MCV 83.9 (80.0-98.0) fL MCH 28.6 (27.0-33.0) pg MCHC 34.1 (31.0-36.0) g/dl RDW 12.7 (11.0-16.0) % Plt Count 226 (160-400) X10*3/uL MPV 9.6 (9.4-12.4) fL Immature Gran % (Auto) 0.3 (0.0-0.4) % Neut % (Auto) 75.9 H (45-73) % Lymph % (Auto) 15.9 L (20-40) % Tripp % (Auto) 5.6 (2-11) % Eos % (Auto) 1.9 (0-4) % Baso % (Auto) 0.4 (0-2) % Lymph # (Auto) 1.1 L (1.2-4.9) X10*3/uL Tripp # (Auto) 0.4 (0.1-1.2) X10*3/uL Eos # (Auto) 0.1 (0.0-0.4) X10*3/uL Baso # (Auto) 0.0 (0.0-0.2) X10*3/uL Abs Immat Gran (auto) 0.02 (0.00-0.03) X10*3/uL Absolute Neuts (auto) 5.3 (2.0-8.3) x10*3/uL Absolute Nucleated RBC 0.000 (0.0-0.012) X10*3/uL Nucleated RBC % (auto) 0.0 (0.0-0.2) /100WBC Sodium 140 (135-145) mmol/L Potassium 4.4 (3.3-5.1) mmol/L Chloride 109 H (96-108) mmol/L Carbon Dioxide 20 L (22-29) mmol/L Anion Gap 15 (12-20) BUN 20 H (9-16) mg/dL Creatinine 0.95 (0.5-1.4) mg/dL Estim Creat Clear Calc 105.7 Estimated GFR > 60 Random Glucose 120 H (60-115) mg/dL Calcium 8.8 (8.4-10.2) mg/dL Troponin I High Sens 5.9 8.6 (<3.5-35.0) ng/L Urine Color Yellow Urine Appearance Clear Urine pH 6.0 (5.0-9.0) Ur Specific [place] 1.015 (1.005-1.025) Urine Protein Negative (Neg-Trace) mg/dL Urine Glucose (UA) Negative (Negative) mg/dL Urine Ketones Negative (Negative) mg/dL Urine Blood Negative (Negative) Urine Nitrite Negative (Negative) Ur Leukocyte Esterase Negative (Negative) Independent Interpretation I performed an independent interpretation of an: EKG (Ectopic atrial rhythm. Negative STEMI. No EKG changes) and CT Scan Radiology Impression Discussion of test interpretation with radiology: I have reviewed the radiologist's reading. Independent Historian Clinical information obtained from an independent historian. History obtained from or confirmed by: Spouse External Record Review External record reviewed: Other (Prior visits) Prescription Management I considered prescription management with: Other (meclizine) Discharge Plan Discharge Clinical Impression: Dizziness Patient Disposition: Home, Self-Care Instructions: Vertigo (ED), Dizziness (ED) Additional Instructions: Please follow-up with your primary care provider and also an ENT. Return to the ED immediately for any slurred speech, headache, facial droop, paralysis of extremity, loss of vision, inability to ambulate, headache, fever, chills, chest pain, shortness of breath, ringing in the ear, ear pain, or any other concerning symptoms. Recommend recording blood pressure twice a day for follow-up with her primary care provider. Prescriptions: New meclizine 25 mg tablet 25 mg PO BID PRN (Reason: dizziness) 10 Days Qty: 20 0RF No Action ketoconazole 200 mg tablet 200 mg PO DAILY Qty: 30 1RF Referrals: Deepak Lozoya [Physician] - (Dizziness, left ear fullness) Stand Alone Forms: Work/School Release Interventions: ED Discharge Assessment Last Done: 01/30/23 14:20 Discharge Date/Time: 01/30/23 14:21 Print Language: Malay
[2023-01-30 13:31] LABS: Troponin-I High Sensitivity 8.6 ng/L (<3.5-35.0)
--- NOTE | 2023-01-30 14:11 | PC.NURSE ---
Pt ambulated with steady gait to bathroom denies dizziness. Respirations even and unlabored, skin pwd, no apparent distress
== END 2023-01-30 14:21 | disposition home or self-care (01) ==
PROVIDERS: Physician Assistant; Emergency Provider Emergency Medicine; PCP Nurse Practitioner Family
DX: R42 Dizziness and giddiness (principal); R11.2 Nausea with vomiting, unspecified; R01.1 Cardiac murmur, unspecified; I35.0 Nonrheumatic aortic (valve) stenosis; M17.12 Unilateral primary osteoarthritis, left knee
CPT/HCPCS: 36415; 70450; 80048; 81003; 84484; 85025; 93005; 99284; 99285

== ENCOUNTER → 2023-01-30 08:45 | Outpatient (BNV) | payer OTHER, SELFPAY | PROVIDERS: Emergency Provider Emergency Medicine; PCP Nurse Practitioner Family; Visit Provider Internal Medicine Cardiovascular Disease | DX: R94.31 Abnormal electrocardiogram [ECG] [EKG] (principal) | CPT/HCPCS: 93010 ==

== ENCOUNTER 2023-04-14 16:15 | Outpatient (AMB) | payer OTHER, SELFPAY ==
--- NOTE | 2023-04-14 16:17 | MHC.PC.OV ---
Vital Signs 04/14/23 16:18 04/14/23 16:51 Height 6 ft Weight 274 lb BMI 37.2 BP 142/88 H 138/86 Blood Pressure Location Lt brachial Rt brachial Position Sitting Sitting Pulse 91 Pulse Source Pulse Oximeter Pulse Oximetry (%) 96 Oxygen Delivery Method Room Air Intake Visit Reasons: 6 Month follow up Intake Note: Pt was in [facility] [place] for Dizziness Allergies No Known Allergies Allergy (Verified 04/14/23 17:43) Medication List - Last Reconciled 04/14/23 by ESPERANZA Cesar ketoconazole 200 mg PO DAILY PRN Tobacco use date assessed: 04/14/23 Fall risk assessment: No Falls in past year Last assessed Fall Risk: 04/14/23 Dental Screening Dental Screen Date: 04/14/23 Did you have a dental visit in the last 12 months?: Yes Did you have a dental problem in the last 6 months where you did not have access to dental care?: No Was dental information given to patient?: Patient has dentist HPI 6 Month follow up HPI Details Pt was seen in the ER on 01/30 c/o dizziness and N/V. EKG showed no changes. Initial troponin was negative, repeat did not increase by 50%. Orthostatics were negative. UA was negative. Head CT was WNL. Pt was d/c with meclizine. Pt has seen ENT and workup was reportedly negative. He reports a few short episodes of dizziness since his ER visit but states that they are less severe. Denies fever, chills, chest pain, and shortness of breath. Pt c/o itching of his ears. Will send ear drops (prednisone based). Pt has a systolic murmur. Hx of aortic stenosis. Echo was previously ordered in September of 2022 but this was not done. Will reorder. Pt has not had a sleep study, which a referral was also previously placed, will refer. NOTE: highly encouraged pt get his labs drawn. Pt reported not liking taking pills PFSH Medical History Aorta disorder Mild aortic valve stenosis Hepatomegaly Surgical History Hx of colonoscopy Social History Housing: House Alcohol intake: current Alcohol intake frequency: holidays/special occasions only Patient Tobacco Use Status: Never used Tobacco e-Cigarette/Vaping Use: Never Used service: No Current occupational status: employed Current occupation: [employer] service Current occupational exposures/hazards: Yes Cognitive needs: No Hearing needs: No Vision needs: No Questionnaire PHQ-9 Over the last 2 weeks, how often have you been bothered by any of the following problems? 1. Little interest or pleasure in doing things: not at all 2. Feeling down, depressed, or hopeless: not at all 3. Trouble falling or staying asleep, or sleeping too much: not at all 4. Feeling tired or having little energy: not at all 5. Poor appetite or overeating: not at all 6. Feeling bad about yourself - or that you are a failure or have let yourself or your family down: not at all 7. Trouble concentrating on things, such as reading the newspaper or watching television: not at all 8. Moving or speaking so slowly that other people could have noticed. Or the opposite - being so fidgety or restless that you have been moving around a lot more than usual: not at all 9. Thoughts that you would be better off or of hurting yourself in some way: not at all Total score: 0 Depression Screening Interpretation: Negative Depression Screening Done: Yes 83304 - PHQ-9 Billing: Yes Source: Developed by Drs. Sergio Schaefer, Kelly Viveros, Anant Chacon and colleagues, with an educational juan from [employer]. Thrive Questionnaire Date Thrive assessed: 04/14/23 I am a: Patient What is your living situation today?: I have a steady place to live Within the past 12 months, did the food you bought not last and you didn't have the money to get more?: Never true Within the past 12 months, did you worry whether your food would run out before you got money to buy more?: Never true Do you have trouble paying for medicines?: No Do you have trouble getting transportation to medical appointments?: No Do you have trouble paying your heating and electricity bill?: No Do you have trouble taking care of your child, family member or friend?: No Do you have trouble with day-to-day activities such as bathing, preparing meals, shopping, managing finances, etc.?: No Are you currently unemployed and looking for a job?: No Are you interested in more education?: No Please select the resources that you would like help with: None Currently or been in a relationship where the following occur: no concerns reported THRIVE Score: 0 AUDIT C Alcohol Use Questionnaire (AUDIT-C) 1. How often do you have a drink containing alcohol?: Monthly or less 2. How many drinks containing alcohol do you have on a typical day when you are drinking?: 1 or 2 3. How often do you have six or more drinks on one occasion?: Never Total Score: 1 JOE-7 AMB Questionnaire JOE-7 Date JOE - 7 assessed: 04/14/23 Feeling nervous, anxious, or on edge: 0 = Not at all Not being able to stop or control worryin = Not at all Worrying too much about different things: 0 = Not at all Trouble relaxin = Not at all Being so restless that it is hard to sit still: 0 = Not at all Becoming easily annoyed or irritable: 0 = Not at all Feeling afraid as if something awful might happen: 0 = Not at all Total JOE-7 score (0-4 normal; 5-9 mild; 10-14 moderate; 15-21 severe): 0 Source: Developed by Drs. Sergio Schaefer, Kelly Viveros, Anant Chacon and colleagues, with an educational juan from [employer]. JOE-7 Assessment Billing JOE-7 Assessment Tool: JOE-7 Assessment 16276 Review of Systems Const Reports as per HPI Physical exam (Primary Care) Vital Signs: Last Vital Signs Pulse 91 04/14/23 16:18 BP 138/86 04/14/23 16:51 Pulse Ox 96 04/14/23 16:18 Oxygen Delivery Method Room Air 04/14/23 16:18 BMI result Body Mass Index 37.2 Tobacco/Smoking Status: Tobacco use Status Tobacco use date assessed 04/14/23 04/14/23 16:24 Patient Tobacco Use Status Never used Tobacco 04/14/23 16:19 e-Cigarette/Vaping Use Never Used 04/14/23 16:19 PHQ-9: PHQ-9 Score PHQ-9: Total score 0 04/14/23 16:53 Depression Screening Interpretation: Negative Thrive Assessment: Date of Thrive Assessment Date Thrive assessed 04/14/23 04/14/23 16:53 Currently or been in a relationship where the following occur: no concerns reported Const General: cooperative Orientation/consciousness: patient oriented x3 HENMT Other: no cerumen noted, redness to right ear canal Resp Effort & Inspection: normal respiratory effort Auscultation: clear to auscultation bilaterally Cardio Rate: regular rate Rhythm: regular rhythm Heart sounds: S1 normal heart sound present, S2 normal heart sound present and Murmur heart sound present systolic Neuro General: patient oriented x3 Psych Appearance: grossly normal Mental Status: mental status grossly normal Speech and movement: Normal speech and movement present Affect: normal affect Attitude: cooperative Thought process: Normal thought process present Thought content: Normal thought content present Insight: Good insight present (Psych) Judgement: Good judgement present (Psych) Assessment and Plan Assessment & Plan (1) Systolic murmur: Code(s): R01.1 - Cardiac murmur, unspecified Plan: Echo reordered, rereferred for sleep study (2) Vertigo: Code(s): R42 - Dizziness and giddiness Plan: pt was seen by ENT in the past, reports nothing was found, my father had the same exact thing . will cont to monitor, major sources were rulled out at hospital. (3) Ear itching: Code(s): L29.9 - Pruritus, unspecified Plan: ear drops sent Plan The patient agreed to the use of a medical advisor for this encounter. Scribed for ESPERANZA Law by Amy Luciano medical advisor, on 04/14/2023 at 16:40 EST. Orders: Orders CA echo transthoracic complete Today Referrals Sleep Medicine Referral R01.1 - Cardiac murmur, unspecified Medications: New fluocinolone acetonide oil 0.01% (Flac Otic (ear) Oil) 5 drps otic (ear) right BID 14 days PRN 20 mL 1RF ear itching Changed From ketoconazole 200 mg PO DAILY PRN B35.9 - Dermatophytosis, unspecified To ketoconazole 200 mg PO DAILY 30 tabs 2RF B35.9 - Dermatophytosis, unspecified Coding Level of Care Code Est Pt Level 3 (53268) Diagnoses Systolic murmur R01.1 Vertigo R42 Ear itching L29.9 Additional Codes JOE-7 Assessment Billing - JOE-7 Assessment Tool: JOE-7 Assessment 16269 ([id number])
[2023-04-14 16:18] VITALS: BP 142/88; PULSE 91; O2SAT 96; BMI 37.2
[2023-04-14 16:51] VITALS: BP 138/86
== END 2023-04-14 16:54 | disposition home or self-care (01) ==
LOC: HO.HMGC 16:16
PROVIDERS: PCP Nurse Practitioner Family; Visit Provider Nurse Practitioner Family
DX: R01.1 Cardiac murmur, unspecified (principal); R42 Dizziness and giddiness; L29.9 Pruritus, unspecified
CPT/HCPCS: 99213

== ENCOUNTER → 2023-05-11 15:51 | Outpatient (REF) | payer OTHER, SELFPAY ==
--- NOTE | 2023-05-11 15:54 | CA_ITS ---
Transthoracic Echocardiogram Patient (Last, First, Middle): Audi Wagoner J Gender: Male Date of : 1960 Age: 62 Procedure Date: 05/11/2023 Procedure Type: Transthoracic Echocardiogram Location: OP Height: 180.34 cm Weight: 120.2 kg BSA: 2.38 m2 Heart Rate: bpm BP: 130 / 82 mmHg Carton Machine Operator: NIYA Referring MD: Jordan Dominguez [facility]- [place] Coater: César Rodrigez MD Symptoms: RO1.1 CA MURMUR Study Quality: Fair, contrast ECG Rhythm: Sinus with PVc Conclusions: - 1. Normal LV ejection fraction 55-60% with mild LVH with impaired relaxation filling pattern 2. Moderate to severe aortic stenosis 3. Normal RV systolic pressure 4. Mildly dilated ascending aorta at 4.3 cm 5. No gross pericardial effusion Findings Procedure Information Contrast agent, definity, is being given per protocol without apparent complications. Left Ventricle Normal left ventricular size and systolic function. There is mildly increased left ventricular wall thickness. The visually estimated ejection fraction is between 55-60%. Spectral Doppler is indicative of an impaired relaxation filling pattern. E/E prime ratio is between 8 and 15 consistent with indeterminate filling pressures. Right Ventricle Normal right ventricular cavity size and systolic function. Atria The left atrium is normal in size. Interatrial shunt cannot be excluded. The right atrium was not well visualized. Aortic Valve The aortic valve was not well visualized. There is moderate calcification of the aortic valve. There is moderate to severe aortic valve stenosis. The peak aortic velocity is 3.39 m/s with a calculated peak gradient of 46 mmHg. The mean gradient is 31 mmHg. The aortic valve area is 1.07 cm2. There is no aortic valve regurgitation. Mitral Valve There is mild anterior and posterior mitral leaflet thickening. There is trace mitral valve regurgitation. There is no mitral valve stenosis. Pulmonic Valve The pulmonic valve is likely normal. There is trace pulmonic valve regurgitation. Tricuspid Valve Normal tricuspid valve structure. There is trace tricuspid valve regurgitation. The right ventricular systolic pressure is normal. The right ventricular systolic pressure is 15 mmHg. Normal right atrial pressure. There is no evidence of pulmonary hypertension. Great Vessels The pulmonary artery was not well visualized. There is mild dilatation of the ascending aorta measuring 4.30 cm. Venous The inferior vena cava is normal in size and collapses greater than 50% with inspiration. Pericardium/Pleural There is no evidence of pericardial effusion. Measurements 2D Linear Measurements IVSd: 1.24 0.6-0.9/0.6-1.0 cm LVIDd: 5.17 3.9-5.3/4.2-5.9 cm LVIDd Index: 2.17 2.4-3.2/2.2-3.1 cm/m2 LVIDs: 3.79 2.0-3.6 cm LVPWd: 1.26 0.7-1.1 cm LA Diam: 3.00 2.7-3.8/3.0-4.0 cm LAIDs Index: 1.26 1.5-2.3 cm/m2 LV Mass: 325.55 67-162/88-224 g LV Mass Index: 136.79 43-95/49-115 g/m2 LVOT Diam: 2.40 3.0+(-)1.3 cm 2D Systolic Function EF 4C: 54.10 >55% EF 2C: 59.00 >55% EF BiP: 56.50 >55% Mitral Valve MV Pk E: 0.51 MV PK A: 0.99 MV Decel Time: 272.00 E/A: 0.50 E'Lateral: 6.31 E'Medial: 3.70 E/E' Med: 13.90 E/E' Lat: 8.10 PHT: 80.00 MVA PHT: 2.75 Decel [place]: 1.89 Aortic Valve AoV Pk Walt: 3.39 AoV Mn Walt: 2.67 AoV VTI: 0.74 AoV Pk Grad: 46.00 Aov Mn Grad: 31.00 AMANDA Cont.VTI: 1.07 LVOT LVOT Pk Walt: 0.76 LVOT Mn Walt: 0.51 LVOT VTI: 0.18 LVOT Pk Grad: 2.00 LVOT Mn Grad: 1.00 LVOT Diam: 2.40 LVOT Area: 4.52 Diastolic Function MV Pk E: 0.51 MV Pk A: 0.99 E/A: 0.50 E'Medial: 3.70 E/E' Med: 13.90 E' Laterial: 6.31 E/E' Lat: 8.10 Right Ventricle TAPSE (mm): 30.00 TVS' Walt: 16.30 Tricuspid Valve TR Pk Walt: 1.75 TR Pk Grad: 12.00 RA Press: 3.00 RVSP: 15.00 Great Vessels Aorta Sinus of Valsalva: 4.48 2.0-3.5 cm Ao Asc: 4.30 2.1-3.4 cm Updated in Other Vendor System with Status of Final César Rodrigez MD electronically signed on 05/12/2023 12:16:07 PM with status of Final
== END ==
LOC: HO.CARD 15:51
PROVIDERS: Visit Provider Nurse Practitioner Family
DX: R01.1 Cardiac murmur, unspecified (principal)
CPT/HCPCS: 93306; Q9957

== ENCOUNTER → 2023-05-11 15:54 | Outpatient (BNV) | payer OTHER, SELFPAY | PROVIDERS: Visit Provider Internal Medicine Cardiovascular Disease | DX: I35.0 Nonrheumatic aortic (valve) stenosis (principal) | CPT/HCPCS: 93306 ==

== ENCOUNTER 2023-10-10 09:13 | Outpatient (AMB) | payer OTHER, SELFPAY ==
--- OUTSIDE RECORDS SUMMARY | 2023-10-10 09:14 | XMS_ITS ---
Author Organization [facility] Address [address] [place] [address] Care Team Providers Care Constitutional Law Professor Name Role Phone DIYA HONG Primary Care Provider Sergio Rodgers [phone] REASON FOR VISIT cancel procedure Encounters Encounter Location Date Provider Diagnosis [facility] [address] [place] [address] 07/04/2023 Sergio Alcala PLAN OF TREATMENT No Information
--- OUTSIDE RECORDS SUMMARY | 2023-10-10 09:14 | XMS_ITS ---
Author Organization [facility] Address [address] [place] [address] Care Team Providers Care Technology Applications Consultant Name Role Phone DIYA HONG Primary Care Provider Sergio Rodgers [phone] REASON FOR VISIT screening Encounters Encounter Location Date Provider Diagnosis [facility] [place] [address] [place], [place] [address] [id number] 07/06/2023 Sergio Alcala PLAN OF TREATMENT No Information
--- NOTE | 2023-10-10 09:15 | MHC.OFFWIV ---
Intake Vital Signs 10/10/23 09:16 Height 6 ft Weight 258 lb BMI 35.0 BP 156/98 H Blood Pressure Location Lt brachial Position Sitting Pulse 81 Pulse Source Pulse Oximeter Temp 98.3 F Temp Source Oral Pulse Oximetry (%) 98 Oxygen Delivery Method Room Air Intake Visit Reasons: EP- LT eye pain Intake Note: pt c/o LT eye pain and swelling. Started last night 7:00 pm. Hot oil popped in eye while cooking Patient Tobacco Use Status: Never used Tobacco Allergies No Known Allergies Allergy (Verified 10/10/23 09:15) Do you need a note to return to daycare/school/sports/work: No HPI EP- LT eye pain HPI Details This note is constructed using voice recognition software. While every effort has been made to ensure accuracy, lead worker of housekeeping and laundry errors may have been included. The patient is a 62 year old male who presents to the clinic today with left eye pain after splash with hot oil last night. He denies trouble with vision or pain on moving the eye. He took ibuprofen this morning for the pain in his eye, which seems to be pain on the surface of the eye, but it has not helped his pain. [facility] Medical History Aorta disorder Mild aortic valve stenosis Hepatomegaly Surgical History Hx of colonoscopy Social History Housing: House Alcohol intake: current Alcohol intake frequency: holidays/special occasions only Patient Tobacco Use Status: Never used Tobacco e-Cigarette/Vaping Use: Never Used service: No Current occupational status: employed Current occupation: [employer] Current occupational exposures/hazards: Yes Cognitive needs: No Hearing needs: No Vision needs: No Review of Systems Const All systems reviewed & are unremarkable except as noted in HPI and below Physical Exam Vital Signs: Last Vital Signs Temp 98.3 F 10/10/23 09:16 Pulse 81 10/10/23 09:16 BP 156/98 H 10/10/23 09:16 Pulse Ox 98 10/10/23 09:16 Oxygen Delivery Method Room Air 10/10/23 09:16 BMI result Body Mass Index 35.0 Const General: cooperative, healthy appearing, comfortable and no acute distress Orientation/consciousness: patient oriented x3 Limitations: no limitations HEENT Head: Yes normal to inspection General nose exam: Normal external nose present Face and sinus: Yes normal facial exam and Yes sinuses nontender Eyes General: appearance normal, both eyes and all related structures Pupils: Equal, round and reactive pupils present EOM: EOMs intact bilaterally Skin General skin exam: no rashes or lesions noted, elasticity normal and turgor normal Neuro General: patient oriented x3 Cranial nerves: Yes Equal, round and reactive pupils present Office Procedures Fluorescein eye exam Details: Instilled 2 drops tetracaine into the eye. Using fluoescein stain, eye examined for any pooling of dye, which were not present. EOMI. Patient tolerated procedure well. Reviewed with patient that this will cause abnormal color of tears, which will return to normal over the next several hours. Assessment & Plan Assessment & Plan (1) Irritation of left eye: Code(s): H57.89 - Other specified disorders of eye and adnexa Plan: EEN ointment prescribed for symptomatic management only. No signs of infection or corneal abrasion. Advised ophthalmology for any visual disturbance or any ongoing symptoms. Plan See above for full details and plan. Medications: New erythromycin 0.5 inches ophthalmic (eye) TID 7 days 3.5 grams 0RF Coding Level of Care Code Est Pt Level 3 (33957) Diagnoses Irritation of left eye H57.89
--- OUTSIDE RECORDS SUMMARY | 2023-10-10 09:15 | XMS_ITS ---
Author Organization [facility] Address [address] [place] [address] Care Team Providers Care Ammonia Distiller Name Role Phone DIYA HONG Primary Care Provider Sergio Rodgers [phone] REASON FOR VISIT screening Encounters Encounter Location Date Provider Diagnosis [facility] [place] [address] [place], [place] [address] [id number] 04/13/2023 Sergio lAcala PLAN OF TREATMENT No Information
--- OUTSIDE RECORDS SUMMARY | 2023-10-10 09:15 | XMS_ITS | Patient Health Record ---
Author Organization [facility] Address [address] [place] [address] Care Team Providers Care Television Receiver Analyzer Name Role Phone DIYA DOMINGUEZ Primary Care Provider Sergio Rodgers Unavailable [phone] ALLERGIES No Known Allergies REASON FOR REFERRAL Referring Provider First Name DIYA Referring Provider Last Name GELY Referred Organization [facility] Referred Provider Sergio Alcala Referred Address [address],[place], [place],[address], Referred Provider Specialty Gastroentero logy General Notes Ara Hanson 023 02:09:24 PM EDT > [facility]'s office for visit with Dr. Alcala on 12-29-2022 Referral Priority Routine IMMUNIZATIONS Vaccine Route Administration Date Status Comme nts Influenza Unknown 12/15/2017 Administered Influenza Unknown 07/16/2020 Refused Influenza Unknown 12/29/2022 Refused SOCIAL HISTORY Tobacco Use: Social History Observation Description Date Details (start date - stop date) Never Smoker NA - NA Sex Assigned At : Social History Observation Description Sex Assigned At Unknown Tobacco Use/Smoking Question Answer Notes Patient is a nonsmoker Alcohol Screen Question Answer Notes Did you have a drink contain ing alcohol in the past year? Yes How often did you have a dri nk containing alcohol in the past year? Monthly or less (1 point) How many drinks did you have on a typical day when you were drinking in the past year? 1 or 2 drinks (0 point) How often did you have 6 or more drinks on one occasion in the past year? Never (0 point) Points 1 Interpretation Negative PROBLEMS Problem Type ICD Code Onset Dates Problem Status W/U Status Risk SNOMED Code Notes Problem Encounter for screening for malignant neoplasm of colon (Z12.11) Active confirmed 656315885 Problem Pre-procedural examination (Z01.818) Active confirmed 085455235514125 Problem Diarrhea of presumed infectious origin (R19.7) Active confirmed 32403523 Problem History of adenomatous polyp of colon (Z86.010) Active confirmed 589765351 Problem Serrated polyp of colon (K63.5) Active confirmed 180743511 Problem Preprocedural examination (Z01.818) Active confirmed 897464525677472 VITAL SIGNS Temperature 98.9 degrees Fahrenheit 12/29/2022 Blood pressure diastolic 00 mm Hg 12/29/2022 Height 72 in 12/29/2022 Blood pressure systolic 000 mm Hg 12/29/2022 Weight 260 lbs 12/29/2022 BMI 35.26 kg/m2 12/29/2022 Encounters Encounter Location Date Provider Diagnosis [facility] [place] [address] [phone] 04/13/2023 Sergio Alcala [facility] [place] [address], [place] [phone] 07/06/2023 Sergio Alcala [facility] [address] [place] [address] 12/29/2022 Sergio Alcala History of adenomato us polyp of colon Z86.010 ; Preprocedural examination Z01.818 and Serrated polyp of colon K63.5 [facility] [address] [place] [address] 04/12/2023 Sergio Alcala [facility] [address] [place] [address] 07/04/2023 Sergio Alcala ASSESSMENTS Encounter Date Diagnosis Assessment Notes Treatment Notes Treatment Clinical Notes 12/29/2022 History of adenomatous polyp of colon (ICD-10 - Z86.010) 12/29/2022 Preprocedural examination (ICD-10 - Z01.818) 12/29/2022 Serrated polyp of colon (ICD-10 - K63.5) PLAN OF TREATMENT Pending Test Test Name Order Date GIARDIA AG, STOOL EIA 07/16/2020 Ova and Parasite 07/16/2020 Future Test Test Name Order Date COLONOSCOPY 02/16/2018 COLONOSCOPY 12/29/2022 Insurance Providers Payer Name Payer Address Payer Phone Subscriber Number Group Number Insured Name Patient Relationship to Insured Coverage Start Date Coverage End Date [employer] [employer] [address] [place] [phone] [id number] KODI WAGONER Self - patient is the insured MEDICAL (GENERAL) HISTORY Medical History History ICD Code Denies [place],DM,CVA,Lung disease,renal dise ase Reports a neg. flex sig or a colonoscopy in his 40's ? enlarged thoracic aorta se en on imaging approx 2018-this is by the patient's and his 's report at the 07/16/2020 OV Colonoscopy 04/2018 1 sessile serrated po lyp and 1 tubular adenoma removed Giardia in 2020 treated successfully cesar [place] Surgical History Surgery Date(Month/Year)
[2023-10-10 09:16] VITALS: BP 156/98; PULSE 81; TEMP 36.8; O2SAT 98; BMI 35.0
== END 2023-10-10 09:59 | disposition home or self-care (01) ==
PROVIDERS: PCP Nurse Practitioner Family; Visit Provider Registered Nurse
DX: H57.89 Other specified disorders of eye and adnexa (principal)
CPT/HCPCS: 99213

== ENCOUNTER 2023-10-10 09:44 | Outpatient (REF) | payer OTHER, SELFPAY ==
[2023-10-10 13:12] LABS: MANUAL DIFF FLAG NO
[2023-10-10 13:22] LABS: Basophils Percent Auto 0.4 % (0-2); Eosinophils Absolute Auto 0.1 X10*3/uL (0.0-0.4); Imm Gran Abs Auto 0.07 X10*3/uL (0.00-0.03); Lymphocytes Percent Auto 28.4 % (20-40); Mean Corpuscular HGB Conc 33.3 g/dl (31.0-36.0); Mean Corpuscular Volume 86.9 fL (80.0-98.0); Mean Platelet Volume 9.8 fL (9.4-12.4); Monocytes Absolute Auto 0.5 X10*3/uL (0.1-1.2); Monocytes Percent Auto 7.8 % (2-11); Neutrophils Absolute Auto 4.2 x10*3/uL (2.0-8.3); Neutrophils Percent Auto 60.4 % (45-73); Platelet Count 271 X10*3/uL (160-400); Red Blood Count 5.18 X10*6/uL (4.60-5.80); Red Cell Distribution Width 13.2 % (11.0-16.0); White Blood Count 6.9 X10*3/uL (4.8-10.8)
[2023-10-10 13:34] LABS: Appearance Urine Clear; Color Urine Yellow; Glucose Urine UA Negative (Negative); Leukocyte Esterase Urine Trace (Negative); Nitrite Urine Negative (Negative); PH 5.5 (5.0-9.0); UMIC TRIGGER UACC YES; Urine Blood Negative (Negative); Urine Ketones Negative (Negative); Urine Protein Negative (Neg-Trace)
[2023-10-10 13:35] LABS: Alanine Aminotransferase 27 U/L (0-40); Albumin Level 4.3 g/dL (3.5-5.0); Alkaline Phosphatase 66 U/L (39-117); Anion Gap 13 (12-20); Aspartate Amino Transferase 23 U/L (5-37); Bilirubin Total 0.5 mg/dL (0.0-1.0); Blood Urea Nitrogen 23 mg/dL (9-16); Calcium 9.6 mg/dL (8.4-10.2); Carbon Dioxide 26 mmol/L (22-29); Chloride 106 mmol/L (96-108); Cholesterol 209 mg/dL (<200); Estimated Glomerular Filt Rate > 60; Glucose Fasting 94 mg/dL (60-99); HDL Cholesterol 49 mg/dL (>40); LDL Cholesterol Calculated 131 mg/dL (<100); Potassium 4.6 mmol/L (3.3-5.1); Sodium 140 mmol/L (135-145); Total Protein 7.4 g/dL (6.5-8.0); Triglycerides 145 mg/dL (<150)
[2023-10-10 13:46] LABS: Bacteria Urine None Seen (None Seen); Hyaline Casts Urine 0-2 /LPF (0-2); RBC Urine 0-2 /HPF (0-2); Squamous Epithelial Cell Urine 0-2 /HPF (0-2); WBC Urine 0-5 /HPF (0-5)
[2023-10-10 13:56] LABS: TSH reflex Free T4 1.07 uIU/mL (0.32-4.0)
[2023-10-10 14:02] LABS: Prostate Specific Antigen Scr 6.66 ng/mL (<0.05-4.0)
[2023-10-16 13:53] LABS: Testosterone, Free 59.1 pg/mL (35.0-155.0); Testosterone, Total 356 ng/dL (250-1100)
== END 2023-10-10 09:45 | disposition home or self-care (01) ==
LOC: HO.HMGCLDS 09:44
PROVIDERS: Visit Provider Nurse Practitioner Family
DX: Z00.00 Encounter for general adult medical examination without abnormal findings (principal); Z12.5 Encounter for screening for malignant neoplasm of prostate; N52.9 Male erectile dysfunction, unspecified; R79.89 Other specified abnormal findings of blood chemistry
CPT/HCPCS: 36415; 80053; 80061; 81001; 84153; 84402; 84403; 84443; 85025

== ENCOUNTER 2023-10-27 15:30 | Outpatient (AMB) | payer OTHER, SELFPAY ==
--- NOTE | 2023-10-27 15:33 | MHC.PC.OV ---
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 Labs were already performed. PSA is up to date. PSA was elevated, will refer to urology, stressed the importance of going to this appointment. Pt does report weak stream and nocturia (2-3 times per night), refused ABDELRAHMAN today. Pt is following up with cardiology, missing notes, will track these down. Pt was told he could not have a colon screen due to risk, though he is not sure why. Pt was cleared by cardiology. Will refer to GI. Pt's lipids were elevated. Will start atorvastatin 20mg. 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 Pt was referred for a sleep study, letter was sent but he does not remember receiving this. Pt will call them regarding this, number given. MRI was ordered due to left kidney lesion but this was not done. Will resubmit this order as well.REINFORCED TO PT IMPORTANCE OF FOLLOWING UP WITH ALL IMAGING AND SPECIALISTS. PT REPORTED UNDERSTANDING THIS. [facility] Medical History Aorta disorder Mild aortic valve stenosis Hepatomegaly Surgical History Hx of colonoscopy Social History Housing: House Alcohol intake: current Alcohol intake frequency: holidays/special occasions only Patient Tobacco Use Status: Never used Tobacco e-Cigarette/Vaping Use: Never Used service: No Current occupational status: employed Current occupation: [employer] Current occupational exposures/hazards: Yes Cognitive needs: No Hearing needs: No Vision needs: No Questionnaire PHQ-9 Over the last 2 weeks, how often have you been bothered by any of the following problems? 11511 - PHQ-9 Billing: Patient declined-do not bill Source: Developed by Drs. Sergio Schaefer, Kelly Viveros, Anant Chacon and colleagues, with an educational juan from [employer]. Thrive Questionnaire Date Thrive assessed: 04/14/23 I am a: Patient What is your living situation today?: I have a steady place to live Within the past 12 months, did the food you bought not last and you didn't have the money to get more?: I choose not to answer this question Within the past 12 months, did you worry whether your food would run out before you got money to buy more?: I choose not to answer this question Do you have trouble paying for medicines?: I choose not to answer this question Do you have trouble getting transportation to medical appointments?: I choose not to answer this question Do you have trouble paying your heating and electricity bill?: I choose not to answer this question Do you have trouble taking care of your child, family member or friend?: I choose not to answer this question Do you have trouble with day-to-day activities such as bathing, preparing meals, shopping, managing finances, etc.?: I choose not to answer this question Are you currently unemployed and looking for a job?: I choose not to answer this question Are you interested in more education?: I choose not to answer this question Please select the resources that you would like help with: None Currently or been in a relationship where the following occur: I choose not to answer THRIVE Score: 0 AUDIT C Alcohol Use Questionnaire (AUDIT-C) 1. How often do you have a drink containing alcohol?: Never Total Score: 0 JOE-7 AMB Questionnaire JOE-7 Date JOE - 7 assessed: 04/14/23 Feeling nervous, anxious, or on edge: 0 = Not at all Not being able to stop or control worryin = Not at all Worrying too much about different things: 0 = Not at all Trouble relaxin = Not at all Being so restless that it is hard to sit still: 0 = Not at all Becoming easily annoyed or irritable: 0 = Not at all Feeling afraid as if something awful might happen: 0 = Not at all Total JOE-7 score (0-4 normal; 5-9 mild; 10-14 moderate; 15-21 severe): 0 Source: Developed by Drs. Sergio Schaefer, Kelly Viveros, Anant Chacon and colleagues, with an educational juan from [employer]. Review of Systems Const Denies chills and Denies fever(s) Eyes Denies blurry vision ENT Denies vertigo, Reports dizziness (intermittent) and Denies sore throat Card Denies chest pain at rest, Denies chest pain with activity, Denies diaphoresis, Denies dyspnea and Denies dyspnea on exertion Resp Denies cough, Denies dyspnea, Denies dyspnea on exertion and Denies wheezing GI Denies abdominal pain, Denies melena, Denies hematochezia, Denies constipation, Denies diarrhea and Denies loose stools Denies hematuria Musc Denies numbness and Denies tingling Skin/Breast Denies lesions Neuro Denies vertigo, Reports dizziness (intermittent), Denies numbness and Denies tingling Psych Denies anxiety, Denies depression, Denies homicidal ideation, Denies suicidal ideation and Denies other (substance abuse) Aller/Immun Denies wheezing Physical exam (Primary Care) Vital Signs: Last Vital Signs Pulse 78 10/27/23 15:34 BP 132/82 10/27/23 15:34 Pulse Ox 98 10/27/23 15:34 BMI result Body Mass Index 35.3 Tobacco/Smoking Status: Tobacco use Status Tobacco use date assessed 04/14/23 10/27/23 15:38 Patient Tobacco Use Status Never used Tobacco 10/27/23 15:38 e-Cigarette/Vaping Use Never Used 10/27/23 15:38 Thrive Assessment: Date of Thrive Assessment Date Thrive assessed 04/14/23 10/27/23 15:38 Currently or been in a relationship where the following occur: I choose not to answer Const General: cooperative Nutritional Appearance: obese Orientation/consciousness: patient oriented x3 HENMT Head: Yes normal to inspection, Yes normocephalic and Yes atraumatic Ears: TM's normal bilaterally Eyes General: appearance normal, both eyes and all related structures Alignment and Position: alignment normal and position normal Neck Neck: Yes normal visual inspection, Yes no lymphadenopathy and Yes supple Resp Effort & Inspection: normal respiratory effort Auscultation: clear to auscultation bilaterally Cardio Rate: regular rate Rhythm: regular rhythm Heart sounds: S1 normal heart sound present, S2 normal heart sound present and Murmur heart sound present systolic GI Palpation (GI): Soft to palpation and nontender Auscultation: normal bowel sounds Skin Rashes: no rashes Neuro General: patient oriented x3, moves all extremities, no focal motor deficits and deep tendon reflexes 2+ bilaterally Romberg Test: Negative Psych Appearance: grossly normal Mental Status: mental status grossly normal Speech and movement: Normal speech and movement present Affect: normal affect Attitude: cooperative Thought process: Normal thought process present Thought content: Normal thought content present Insight: Good insight present (Psych) Judgement: Good judgement present (Psych) Assessment and Plan Assessment & Plan (1) Elevated PSA: Code(s): R97.20 - Elevated prostate specific antigen [PSA] Plan: Referred to urology (2) Screening for colon cancer: Code(s): Z12.11 - Encounter for screening for malignant neoplasm of colon Plan: Referred to GI (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 Scribed for ANANTH Law by izabella Martinez scribe, on 10/27/2023 at 15:50 EST. Orders: Orders Complete Blood Count Auto Diff 2 Months I77.79 - Dissection of other specified artery, N28.89 - Other specified disorders of kidney and ureter, R97.20 - Elevated prostate specific antigen [PSA], Z12.11 - Encounter for screening for malignant neoplasm of colon TSH reflex Free T4 2 Months I77.79 - Dissection of other specified artery, N28.89 - Other specified disorders of kidney and ureter, R97.20 - Elevated prostate specific antigen [PSA], Z12.11 - Encounter for screening for malignant neoplasm of colon Lipid Panel 2 Months I77.79 - Dissection of other specified artery, N28.89 - Other specified disorders of kidney and ureter, R97.20 - Elevated prostate specific antigen [PSA], Z12.11 - Encounter for screening for malignant neoplasm of colon Comprehensive [place]. Panel Fast 2 Months I77.79 - Dissection of other specified artery, N28.89 - Other specified disorders of kidney and ureter, R97.20 - Elevated prostate specific antigen [PSA], Z12.11 - Encounter for screening for malignant neoplasm of colon UA CC w/rflx Micro + Cult 2 Months I77.79 - Dissection of other specified artery, N28.89 - Other specified disorders of kidney and ureter, R97.20 - Elevated prostate specific antigen [PSA], Z12.11 - Encounter for screening for malignant neoplasm of colon Referrals Urology Referral R97.20 - Elevated prostate specific antigen [PSA] Gastroenterology Referral Z12.11 - Encounter for screening for malignant neoplasm of colon Medications: New atorvastatin 20 mg PO BEDTIME 90 tabs 0RF Coding Level of Care Code Est Pt Prev Care 40-64y(77522) Diagnoses Elevated PSA R97.20 Screening for colon cancer Z12.11 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
[2023-10-27 15:34] VITALS: BP 132/82; PULSE 78; O2SAT 98; BMI 35.3
== END 2023-10-27 16:38 | disposition home or self-care (01) ==
PROVIDERS: PCP Nurse Practitioner Family; Visit Provider Nurse Practitioner Family
DX: Z00.00 Encounter for general adult medical examination without abnormal findings (principal); I77.79 Dissection of other specified artery; R97.20 Elevated prostate specific antigen [PSA]; Z12.11 Encounter for screening for malignant neoplasm of colon; N28.89 Other specified disorders of kidney and ureter; R01.1 Cardiac murmur, unspecified
CPT/HCPCS: 99396

== ENCOUNTER 2023-11-18 15:51 | Outpatient (REF) | payer OTHER, SELFPAY | END 2023-11-18 15:52 | disposition home or self-care (01) | LOC: HO.MRI 15:51 | PROVIDERS: PCP Nurse Practitioner Family; Visit Provider Nurse Practitioner Family | DX: Z13.89 Encounter for screening for other disorder (principal) ==

== ENCOUNTER → 2023-12-02 15:06 | Outpatient (BNV) | payer OTHER, SELFPAY | PROVIDERS: PCP Nurse Practitioner Family; Visit Provider Radiology Diagnostic Radiology | DX: N28.9 Disorder of kidney and ureter, unspecified (principal) | CPT/HCPCS: 74183 ==

== ENCOUNTER 2023-12-02 15:08 | Outpatient (REF) | payer OTHER, SELFPAY ==
--- NOTE | ~2023-12-02 | MR_ITS ---
EXAMINATION: MR ABDOMEN WITHOUT AND WITH CONTRAST CLINICAL INFORMATION: Disorder of the kidney and ureter, unspecified. COMPARISON: No prior MRI in our system. Correlated to CT dated July 14, 2020. TECHNIQUE: MR abdomen was performed without and with use of 10 mL intravenous Gadavist gadolinium contrast. Postcontrast images are performed in multiphase dynamic sequences. Imaging was performed in 3 planes. No reported immediate complications. FINDINGS: Submitted for interpretation on January 31, 2024. LIVER, GALLBLADDER, AND BILIARY TREE: Liver measures 20 cm. There is a well-defined, 4.4 cm faint wall nonenhancing fluid signal characteristic lesion in the periphery of the right hepatic lobe. There are few scattered less than 0.5 cm nonenhancing fluid signal characteristic lesions throughout the liver parenchyma, left and right hepatic lobe. Main portal veins, hepatic veins and intrahepatic portions of the IVC are patent. Gallbladder is fluid-filled without pericholecystic fluid collection or gallbladder wall thickening. No intrahepatic or extrahepatic biliary ductal dilatation. PANCREAS: No focal mass. No peripancreatic fluid collection. No main pancreatic ductal dilatation. SPLEEN: 11 cm. No focal mass. ADRENAL GLANDS: No nodular lesions. KIDNEYS AND URETERS: Right kidney: There is a large, 7 cm well-defined faint wall, nonenhancing fluid signal characteristic lesion in the lateral midportion and lower pole. There is a 4.6 cm exophytic, faint wall nonenhancing fluid signal characteristic lesion in the medial lower pole. There is a 2.2 cm lobulated, intrinsic hyperintense T1 and T2 nonenhancing exophytic lesion in the posterior lateral lower pole with a focal layering, hypointense signal. There is lesion is just medial to the 7 cm exophytic cyst. No hydronephrosis. No nodular lesion within the perinephric/pararenal compartment. The main renal vessels are patent. Left kidney: There is a 3.4 cm exophytic, septated, nonenhancing lesion in the lateral lower pole. There are few scattered less than 0.6 cm nonenhancing fluid signal characteristic lesions throughout the parenchyma. No hydronephrosis. The main renal vessels are patent. There is no nodular enhancing lesion in the perinephric/pararenal compartment. GASTROINTESTINAL TRACT: No intestinal obstruction pattern. No ascites. ABDOMINAL WALL: Fat-containing umbilical hernia, moderate size. LYMPH NODES: Nonspecific mildly prominent lymph nodes in the retroperitoneum. VASCULAR: The mid segment of the celiac trunk demonstrated a 1.1 cm diameter. No aneurysm or dissection, abdominal aorta. OSSEOUS STRUCTURES: Multilevel thoracolumbar spondylosis more conspicuous at T11-12, L2-3, L5-S1 levels. Grade 1 anterolisthesis L5-S1 resulting in bilateral neuroforamina narrowing. There is a focal hyperintense T2 bone lesion at L4 vertebra with intrinsic hyperintense T1 signal. MR/MR abdomen wo/w con IMPRESSION: 2.2 cm hemorrhagic/hyperdense proteinaceous nonenhancing lesion, right kidney. Bosniak type II cysts. 4.4 cm cyst, right hepatic lobe. Stable. Subcentimeter hepatic cysts versus hamartoma. Fat-containing umbilical hernia. Grade 1 anterolisthesis L5-S1. Electronically signed by: Jackson Malcolm MD 01/31/2024 09:47 AM SHRUTHI
[2023-12-02] MEDS: gadobutroL 10 ML VIAL IVPUSH (15:41)
== END 2023-12-02 15:09 | disposition home or self-care (01) ==
LOC: HO.MRI 15:08
PROVIDERS: PCP Nurse Practitioner Family; Visit Provider Nurse Practitioner Family
DX: N28.89 Other specified disorders of kidney and ureter (principal)
CPT/HCPCS: 74183; A9585

== ENCOUNTER 2023-12-07 15:24 | Outpatient (AMB) | payer OTHER, SELFPAY ==
--- NOTE | 2023-12-07 15:51 | A.OFFVIS_ITS ---
Intake Visit Reasons: Elevated PSA Intake Note: New patient is present for Elevated PSA Recent LABS: 10/10/2023 PSA: 6.66 TESTOSTERONE: 356 Antibiotic Allergies:None Blood Thinner:None Truck Bracer Required: No Accompanied by: Self / Same As Patient Allergies No Known Allergies Allergy (Verified 12/07/23 15:53) HPI Comments Details: Audi is a pleasant male. He is a patient of Dr. Sparks. He is seen for the following urologic conditions - elevated PSA ABDELRAHMAN 2+ prostate soft Start finasteride 4 month follow-up labs If persistent elevation recommend prostate biopsy Elevated PSA PSA 10/07 6.7 PFSH Medical History Aorta disorder Mild aortic valve stenosis Hepatomegaly Surgical History Hx of colonoscopy Social History Housing: House Alcohol intake: current Alcohol intake frequency: holidays/special occasions only Patient Tobacco Use Status: Never used Tobacco e-Cigarette/Vaping Use: Never Used service: No Current occupational status: employed Current occupation: [employer] Current occupational exposures/hazards: Yes Cognitive needs: No Hearing needs: No Vision needs: No Review of Systems Const Denies chills and Denies fever(s) Card Reports no additional complaints and Denies syncope Resp Denies cough GI Denies abdominal pain and Denies heartburn Reports as per HPI and Denies change in libido Neuro Denies syncope Psych Denies change in libido Endo Denies change in libido Physical Exam Const General: cooperative, healthy appearing, comfortable and no acute distress Orientation/consciousness: patient oriented x3 HEENT Face and sinus: Yes normal facial exam Mouth: moist mucous membranes Neck Neck: Yes normal visual inspection, Yes full ROM and Yes trachea midline Chest Chest palpation & inspection: normal inspection of the chest Resp Effort & Inspection: normal respiratory effort, able to speak in complete sentences and no respiratory distress GI Inspection: Yes normal to inspection Rectal Exam - Male: Yes normal sphincter tone and Yes prostate normal Male General Exam: Yes normal external exam Penis: normal penis and circumcised Meatus: meatus normal Scrotum: scrotum normal Testes: Testes normal Back/Spine/Pelvis Cervical Spine: normal cervical lordosis Thoracic/Lumbar Spine: thoracic and lumbar spine normal to inspection Skin General skin exam: no rashes or lesions noted Neuro General: patient oriented x3, gait normal, tone normal and moves all extremities Extrem General: Yes normal to inspection and Yes capillary refill normal Assessment & Plan Assessment & Plan (1) Elevated PSA: Code(s): R97.20 - Elevated prostate specific antigen [PSA] Category: Medical (2) Erectile dysfunction: Code(s): N52.9 - Male erectile dysfunction, unspecified Category: Medical Plan Four month follow-up Trial finasteride Orders: Orders PSA,Total (Free>4and<10) 4 Months R97.20 - Elevated prostate specific antigen [PSA] Medications: New finasteride 5 mg PO DAILY 90 tabs 1RF 90 days N13.8 - Other obstructive and reflux uropathy, N40.1 - Benign prostatic hyperplasia with lower urinary tract symptoms, R33.9 - Retention of urine, unspecified, R97.20 - Elevated prostate specific antigen [PSA] Patient Instructions: Imaging studies, laboratory and physical exam results were discussed and reviewed in detail. No major barriers to patient understanding were identified. An opportunity to ask questions regarding the treatment plan was provided. All questions were answered. The patient expressed understanding and agreement with the above treatment plan. The patient is aware they should contact our office by phone for worsening of their current condition or the appearance of new urologic symptoms. Compliance is encouraged with any medications and followup testing that is ordered. It is a privilege to participate in the urologic care of your patient. If you have any questions or concerns regarding treatment for the above conditions, or other urologic issues, please do not hesitate to contact me. The office telephone contact is [phone]. This note is constructed using voice recognition software. While every effort has been made to ensure accuracy business services manager errors may have been included. Yours sincerely, Dr Julio Freeman MD, [facility] - Urology Providers of Expert, Compassionate Care for the Genitourinary System Coding Level of Care Code New Pt Level 4 (46489) Diagnoses Elevated PSA R97.20 Erectile dysfunction N52.9
== END 2023-12-07 16:23 | disposition home or self-care (01) ==
PROVIDERS: PCP Nurse Practitioner Family; Visit Provider Urology
DX: R97.20 Elevated prostate specific antigen [PSA] (principal); N52.9 Male erectile dysfunction, unspecified
CPT/HCPCS: 99204

== ENCOUNTER → 2023-12-07 15:24 | Outpatient (BNVA) | payer OTHER, SELFPAY | PROVIDERS: PCP Nurse Practitioner Family; Visit Provider Urology ==

== ENCOUNTER 2024-02-07 07:46 | Outpatient (REF) | payer OTHER, SELFPAY ==
[2024-02-07 09:59] LABS: MANUAL DIFF FLAG NO
[2024-02-07 10:08] LABS: Basophils Percent Auto 0.4 % (0-2); Eosinophils Absolute Auto 0.2 X10*3/uL (0.0-0.4); Eosinophils Percent Auto 2.3 % (0-4); Hemoglobin 15.4 g/dl (14.0-18.0); Imm Gran Abs Auto 0.02 X10*3/uL (0.00-0.03); Imm Gran Pct Auto 0.3 % (0.0-0.4); Lymphocytes Absolute Auto 2.1 X10*3/uL (1.2-4.9); Mean Corpuscular HGB Conc 34.2 g/dl (31.0-36.0); Mean Corpuscular Hemoglobin 29.3 pg (27.0-33.0); Mean Corpuscular Volume 85.7 fL (80.0-98.0); Mean Platelet Volume 9.6 fL (9.4-12.4); Monocytes Absolute Auto 0.5 X10*3/uL (0.1-1.2); Monocytes Percent Auto 7.9 % (2-11); Neutrophils Percent Auto 58.1 % (45-73); Platelet Count 270 X10*3/uL (160-400); Red Blood Count 5.25 X10*6/uL (4.60-5.80); Red Cell Distribution Width 13.2 % (11.0-16.0); White Blood Count 6.9 X10*3/uL (4.8-10.8)
[2024-02-07 10:13] LABS: Appearance Urine Clear; Color Urine Yellow; Glucose Urine UA Negative (Negative); Leukocyte Esterase Urine Negative (Negative); Nitrite Urine Negative (Negative); Specific Gravity - Urine <= 1.005 (1.005-1.025); Urine Blood Negative (Negative); Urine Ketones Negative (Negative); Urine Protein Negative (Neg-Trace)
[2024-02-07 10:22] LABS: Alanine Aminotransferase 35 U/L (0-40); Albumin Level 4.4 g/dL (3.5-5.0); Alkaline Phosphatase 70 U/L (39-117); Anion Gap 11 (12-20); Aspartate Amino Transferase 25 U/L (5-37); Bilirubin Total 0.6 mg/dL (0.0-1.0); Blood Urea Nitrogen 16 mg/dL (9-16); Calcium 9.8 mg/dL (8.4-10.2); Carbon Dioxide 28 mmol/L (22-29); Chloride 106 mmol/L (96-108); Cholesterol 180 mg/dL (<200); Estimated Glomerular Filt Rate > 60; Glucose Fasting 112 mg/dL (60-99); HDL Cholesterol 52 mg/dL (>40); LDL Cholesterol Calculated 103 mg/dL (<100); Potassium 4.9 mmol/L (3.3-5.1); Sodium 140 mmol/L (135-145); Total Protein 7.8 g/dL (6.5-8.0); Triglycerides 128 mg/dL (<150)
[2024-02-07 11:12] LABS: TSH reflex Free T4 1.34 uIU/mL (0.32-4.0)
== END 2024-02-07 07:47 | disposition home or self-care (01) ==
LOC: HO.HMGCLDS 07:46
PROVIDERS: PCP Nurse Practitioner Family; Visit Provider Nurse Practitioner Family
DX: R97.20 Elevated prostate specific antigen [PSA] (principal); Z12.11 Encounter for screening for malignant neoplasm of colon; N28.89 Other specified disorders of kidney and ureter; I77.79 Dissection of other specified artery
CPT/HCPCS: 36415; 80053; 80061; 81003; 84443; 85025

== ENCOUNTER 2024-04-24 14:03 | Outpatient (REF) | payer OTHER, SELFPAY ==
--- OUTSIDE RECORDS SUMMARY | 2024-04-24 17:12 | XMS_ITS ---
Author Organization [facility] Address [address] [place] [address] Care Team Providers Care Edi Analyst Name Role Phone DIYA HONG Primary Care Provider Sergio Rodgers [phone] REASON FOR VISIT screening Encounters Encounter Location Date Provider Diagnosis [facility] [place] [place] Outpatient [address] [place] [address] [id number] 07/06/2023 Sergio Alcala Plan Of Treatment Next Appt Details Provider Name:Sergio Alcala , 06/13/2024 03:40:00 PM, [address], [address], [place], [address], Progress Notes * SHERON WAGONEROB: (63 yo M)Acc No.[id number]:07/06/2023 COLON WITH MAC Patient:?KODI WAGONER Provider:?Sergio Alcala MD :1960???Age:62 Y???Sex:Male Stefano e:07/06/2023 Address:[id number] Pcp:DIYA HONG Subjective: * Chief Complaints: * ???1. Screening. * Medical History:? Objective: * Vitals:? Assessment: Plan: * Treatment: * * The named appointment provid er may or may not be the originator of this progress note, and it is not deemed complete until electronically signed by the appointment provider. Sign off status: Pending * Provider:?Sergio Alcala MD Date:? 024 Generated for Jess lujan/Fred/Disha on:?04/24/2024 05:12 PM EDT
--- OUTSIDE RECORDS SUMMARY | 2024-04-24 17:12 | XMS_ITS ---
Author Organization [facility] Address [address] [place] [address] Care Team Providers Care Toll Patrolman Name Role Phone DIYA HONG Primary Care Provider Sergio Rodgers [phone] REASON FOR VISIT cancel procedure Encounters Encounter Location Date Provider Diagnosis [facility] [address] [place] [address] 07/04/2023 Sergio Alcala Plan Of Treatment Next Appt Details Provider Name:Sergio Alcala , 06/13/2024 03:40:00 PM, [address], [address], [place], [address], Progress Notes * SHERON WAGONEROB: (63 yo M)Acc No.[id number]:07/04/2023 Patient:?KODI WAGONER :1960???Age:62 Y???Sex:Male Address:[address] [place], [address] * * Date:?
--- OUTSIDE RECORDS SUMMARY | 2024-04-24 17:12 | XMS_ITS ---
Author Organization [facility] Address [address] [place] [address] Care Team Providers Care Quality Engineer Medical Device Name Role Phone DIYA HONG Primary Care Provider Sergio Rodgers [phone] REASON FOR VISIT screening Encounters Encounter Location Date Provider Diagnosis [facility] [address] [place] [id number] 04/13/2023 Sregio Alcala Plan Of Treatment Next Appt Details Provider Name:Sergio Alcala , 06/13/2024 03:40:00 PM, [address], [address], [place], [address], Progress Notes * SHERON WAGONEROB: (63 yo M)Acc No.[id number]:04/13/2023 COLON WITH MAC Patient:?KODI WAGONER Provider:?Sergio Alcala MD :1960???Age:62 Y???Sex:Male Stefano e:04/13/2023 Address:[place] Pcp:DIYA HONG Subjective: * Chief Complaints: * [...] Date:? 024 Generated for Jess lujan/Fred/Disha on:?04/24/2024 05:11 PM EDT
--- OUTSIDE RECORDS SUMMARY | 2024-04-24 17:12 | XMS_ITS | Patient Health Record ---
Author Organization [facility] Address [address] [place] [address] Care Team Providers Care Overlock Operator Name Role Phone DIYA HONG Primary Care Provider Sergio Rodgers Unavailable [phone] Allergies No Known Allergies Reason For Referral No Information Immunizations Vaccine Route Administration Date Status Comme nts Influenza Unknown 12/15/2017 Administered Influenza Unknown 07/16/2020 Refused Influenza Unknown 12/29/2022 Refused Social History Tobacco Use: Social History Observation Description Date Details (start date - stop date) Never Smoker NA - NA Tobacco Use/Smoking Question Answer Notes Patient is [...] Never (0 point) Points 1 Interpretation Negative Section Notes: Nonsmoker, no sig alcohol Nonsmoker, no sig alcohol Nonsmoker, no sig alcohol Problems Problem Type SNOMED Code ICD Code Onset Dates Problem Status W/U Status Risk Notes Problem 180431584 Encounter for screening for malignant neoplasm of colon (Z12.11) Active confirmed Problem 149169449 History of adenomatous polyp of colon (Z86.010) Active confirmed Problem 808179730566083 Preprocedural examination (Z01.818) Active confirmed Problem 880193977521394 Pre-procedural examination (Z01.818) Active confirmed Problem 91190666 Diarrhea of presumed infectious origin (R19.7) Active confirmed Problem 712972034 Serrated polyp o f colon (K63.5) Active confirmed Encounters Encounter Location Date Provider Diagnosis [facility] [address] [place] [address] 07/04/2023 Sergio Alcala Plan Of Treatment Pending Test Test Name Order Date GIARDIA AG, STOOL EIA 07/16/2020 Ova and Parasite 07/16/2020 Future Test Test Name Order Date COLONOSCOPY 02/16/2018 COLONOSCOPY 12/29/2022 Next Appt Details Provider Name:Sergio Alcala , 06/13/2024 03:40:00 PM, [address], [address], [place], [address], Insurance Providers Payer Name Payer Address Payer Phone Subscriber Number Group Number Insured Name Patient Relationship to Insured Coverage Start Date Coverage End Date [employer] [address] [place] [id number] KODI WAGONER Self - patient is the insured Medical (General) History Medical History History ICD Code Denies [place],DM,CVA,Lung disease,renal dise ase Reports a neg. flex sig or a colonoscopy in his 40's ? enlarged thoracic aorta se en on imaging approx 2017-this is by the patient's and his 's report at the 07/16/2020 OV Colonoscopy 04/2018 1 sessile serrated po lyp and 1 tubular adenoma removed Giardia in 2020 treated successfully cesar [place] Surgical History Surgery Date(Month/Year)
[2024-04-24 17:41] LABS: PSA,Total (Free>4and<10) 3.65 ng/mL (0.00-4.00)
== END 2024-04-24 14:04 | disposition home or self-care (01) ==
LOC: HO.HMGCLDS 14:03
PROVIDERS: PCP Nurse Practitioner Family; Visit Provider Urology
DX: Z12.5 Encounter for screening for malignant neoplasm of prostate (principal); R97.20 Elevated prostate specific antigen [PSA]
CPT/HCPCS: 36415; 84153

== ENCOUNTER 2024-04-26 15:43 | Outpatient (AMB) | payer OTHER, SELFPAY ==
[2024-04-26 15:53] VITALS: BP 122/70; PULSE 84; TEMP 36.8; O2SAT 97; BMI 36.8
--- NOTE | 2024-04-26 15:53 | A.OFFPC_ITS ---
Vital Signs 04/26/24 15:53 Height 6 ft Weight 271 lb BMI 36.8 BP 122/70 Blood Pressure Location Lt brachial Position Sitting Pulse 84 Pulse Source Pulse Oximeter Temp 98.2 F Temp Source Oral Pulse Oximetry (%) 97 Intake Visit Reasons: 6M F/U~ insurance ok Intake Note: pt is here for 6 mon f.up Measurement Analyst Required: No Accompanied by: Self / Same As Patient Allergies No Known Allergies Allergy (Verified 04/26/24 18:52) Medication List - Last Reconciled 04/26/24 by BRIJESH Cesar- atorvastatin 20 mg PO DAILY finasteride 5 mg PO DAILY 90 days fluocinolone acetonide oil 0.01% (Flac Otic (ear) Oil) 5 drps otic (ear) right BID PRN 14 days lisinopril 10 mg PO DAILY Tobacco use date assessed: 04/26/24 Fall risk assessment: No Falls in past year Last assessed Fall Risk: 04/26/24 Dental Screening Dental Screen Date: 04/26/24 Did you have a dental visit in the last 12 months?: Yes Did you have a dental problem in the last 6 months where you did not have access to dental care?: No Was dental information given to patient?: Patient has dentist HPI 6M F/U~ insurance ok HPI Details Chief Complaint Obstructive Sleep Apnea evaluation and follow-up on prior cardiac, vascular, and urologic findings. History of Present Illness The patient is a 63-year-old male presenting for a generalized follow-up with suspected obstructive sleep apnea due to past referrals for testing, which have not yet been completed due to scheduling obstacles. His medical history includes aortic stenosis, for which he is monitored at [facility], and a notable celiac artery finding that currently requires management through cholesterol and blood pressure control (see cardiovascular's note). Previous imaging detected renal cysts, addressed by referral to urology with a follow-up appointment imminent. The patient's obesity has been acknowledged and lab work has been ordered for further assessment. Additionally, there is a report of a persistent foul smell in the groin, attributed to improper hygienic conditions exacerbated by foreskin mobilization issues. Pt reports having an upcoming colon screen appt. Will track down notes from last GI visit concerning incidental liver lesions/cysts noted on imaging. NOTE: Nonspecific mildly prominent lymph nodes in the retroperitoneum noted in body of MRI report, will order a CT scan to monitor. Social History - Obesity is noted, indicating a need fo r weight management discussions. Health Maintenance - Advised patient to contact sleep medic ine lab for obstructive sleep apnea evaluation. - Emphasis on monitoring and controlling cholesterol and blood pressure for cardiovascular health. - Referral and follow-up with urology fo r renal cysts and prostate evaluation. Review of Systems - Genitourinary: Reports foul odor in th e groin region despite hygiene efforts. -denies any cp, sob, blurred vision, diz ziness -reported slight pressure to LLQ (interm ittent) Physical Exam General: Cooperative, healthy appearing, comfortable, no acute distress and well developed Orientation: Patient oriented x3 Limitations: No limitations Head: Normal to inspection Ears: Hearing grossly normal bilaterally Nose: Normal external nose present Face and sinus: Normal facial exam Eyes: Appearance normal, both eyes and all related structures Neck: Normal visual inspection and Yes full ROM Respiratory: Normal respiratory effort and able to speak in complete sentences. Clear to auscultation bilaterally Cardiovascular: Systolic murmur noted on exam. Regular rate and rhythm. Normal S1 and S2 GI: Normal to inspection. Soft to palpation and nontender Skin: No rashes or lesions noted. Circumcised with a slight foreskin issue where moisture can build up around base of glans. no active signs of balanitis. Neuro: Patient oriented x3 Extremities: Normal to inspection Results Plan The patient is advised to pursue testing for obstructive sleep apnea with sleep medicine specialists. Current management of cardiovascular conditions, including aortic stenosis and the celiac artery abnormality, involves attention to cholesterol and blood pressure. BP currently controlled on lisinopril. Urology follow-up is in place for renal cysts and prostate health. Obesity remains a critical factor, and lifestyle interventions are encouraged. Foreskin moisture issues are to be managed by maintaining dryness to reduce the risk of complications. Pt sees GI, will await last notes, colon screen apparently scheduled Discussion Notes I discussed with the patient the importance of addressing obstructive sleep apnea and provided the necessary contact information for proceeding with sleep study appointments. We reviewed the management strategy for aortic stenosis and the celiac artery finding, highlighting the need for consistent cholesterol and blood pressure control. The patient understands the urgency of completing lab work and pursuing weight loss to tackle obesity. Additionally, I advised on maintaining the cleanliness and dryness of the groin region, ensuring he reports back if further issues escalate. Patient Instructions - Contact the sleep medicine lab to sche dule a sleep apnea test. - Continue management of cholesterol and blood pressure as directed by the cardiology team. - Follow up with urology as scheduled fo r renal cysts and prostate health. - Maintain dryness in the groin area and monitor for any further issues. - Focus on weight loss through diet and exercise. -have labs drawn -follow up with all specialists as sched kari [facility] Medical History Aorta disorder Mild aortic valve stenosis Hepatomegaly Surgical History Hx of colonoscopy Social History Housing: House Alcohol intake: current Alcohol intake frequency: holidays/special occasions only Patient Tobacco Use Status: Never used Tobacco e-Cigarette/Vaping Use: Never Used service: No Current occupational status: employed Current occupation: [employer] service Current occupational exposures/hazards: Yes Cognitive needs: No Hearing needs: No Vision needs: No Questionnaire PHQ-9 Over the last 2 weeks, how often have you been bothered by any of the following problems? 1. Little interest or pleasure in doing things: not at all 2. Feeling down, depressed, or hopeless: not at all 3. Trouble falling or staying asleep, or sleeping too much: not at all 4. Feeling tired or having little energy: several days 5. Poor appetite or overeating: several days 6. Feeling bad about yourself - or that you are a failure or have let yourself or your family down: not at all 7. Trouble concentrating on things, such as reading the newspaper or watching television: not at all 8. Moving or speaking so slowly that other people could have noticed. Or the opposite - being so fidgety or restless that you have been moving around a lot more than usual: not at all 9. Thoughts that you would be better off or of hurting yourself in some way: not at all Total score: 2 Depression Screening Interpretation: Negative Depression Screening Done: Yes 73774 - PHQ-9 Billing: Yes Source: Developed by Kelly Campbell.W. Felice, Anant Chacon and colleagues, with an educational juan from [employer]. Thrive Questionnaire Date Thrive assessed: 04/26/24 I am a: Patient What is your living situation today?: I choose not to answer this question Within the past 12 months, did the food you bought not last and you didn't have the money to get more?: I choose not to answer this question Within the past 12 months, did you worry whether your food would run out before you got money to buy more?: I choose not to answer this question Do you have trouble paying for medicines?: I choose not to answer this question Do you have trouble getting transportation to medical appointments?: I choose not to answer this question Do you have trouble paying your heating and electricity bill?: I choose not to answer this question Do you have trouble taking care of your child, family member or friend?: I choose not to answer this question Do you have trouble with day-to-day activities such as bathing, preparing meals, shopping, managing finances, etc.?: I choose not to answer this question Are you currently unemployed and looking for a job?: I choose not to answer this question Are you interested in more education?: I choose not to answer this question Please select the resources that you would like help with: None Currently or been in a relationship where the following occur: I choose not to answer THRIVE Score: 0 AUDIT C Alcohol Use Questionnaire (AUDIT-C) 1. How often do you have a drink containing alcohol?: Monthly or less 2. How many drinks containing alcohol do you have on a typical day when you are drinking?: 1 or 2 3. How often do you have six or more drinks on one occasion?: Never Total Score: 1 Score Reviewed/Action Taken: Yes JOE-7 AMB Questionnaire JOE-7 Date JOE - 7 assessed: 04/26/24 Feeling nervous, anxious, or on edge: 0 = Not at all Not being able to stop or control worryin = Not at all Worrying too much about different things: 0 = Not at all Trouble relaxin = Not at all Being so restless that it is hard to sit still: 0 = Not at all Becoming easily annoyed or irritable: 0 = Not at all Feeling afraid as if something awful might happen: 0 = Not at all Total JOE-7 score (0-4 normal; 5-9 mild; 10-14 moderate; 15-21 severe): 0 Source: Developed by Drs. Sergio Schaefer, Kelly Viveros, Anant Chacon and colleagues, with an educational juan from [employer]. JOE-7 Assessment Billing JOE-7 Assessment Tool: JOE-7 Assessment 25392 Physical exam (Primary Care) Vital Signs: Last Vital Signs Temp 98.2 F 04/26/24 15:53 Pulse 84 04/26/24 15:53 BP 122/70 04/26/24 15:53 Pulse Ox 97 04/26/24 15:53 BMI result Body Mass Index 36.8 Tobacco/Smoking Status: Tobacco use Status Tobacco use date assessed 04/26/24 04/26/24 15:56 Patient Tobacco Use Status Never used Tobacco 04/26/24 15:56 e-Cigarette/Vaping Use Never Used 04/26/24 15:56 PHQ-9: PHQ-9 Score PHQ-9: Total score 2 04/26/24 18:44 Depression Screening Interpretation: Negative Thrive Assessment: Date of Thrive Assessment Date Thrive assessed 04/26/24 04/26/24 15:56 Currently or been in a relationship where the following occur: I choose not to answer Coding Level of Care Code Est Pt Level 4 (26993) Diagnoses Mild aortic valve stenosis I35.0 Sleep apnea G47.30 Liver cyst K76.89 Left kidney mass N28.89 Retroperitoneal lymphadenopathy R59.0 Additional Codes JOE-7 Assessment Billing - JOE-7 Assessment Tool: JOE-7 Assessment 16219 ([id number]) PHQ-9 - 64926 - PHQ-9 Billing: Yes ([id number]) Assessment & Plan Assessment & Plan (1) Mild aortic valve stenosis: Code(s): I35.0 - Nonrheumatic aortic (valve) stenosis Category: Medical (2) Sleep apnea: Code(s): G47.30 - Sleep apnea, unspecified Category: Medical (3) Liver cyst: Code(s): K76.89 - Other specified diseases of liver Category: Medical (4) Left kidney mass: Code(s): N28.89 - Other specified disorders of kidney and ureter Category: Medical (5) Retroperitoneal lymphadenopathy: Code(s): R59.0 - Localized enlarged lymph nodes Category: Medical Plan . Orders: Orders TSH reflex Free T4 Today G47.30 - Sleep apnea, unspecified, I35.0 - Nonrheumatic aortic (valve) stenosis Complete Blood Count Auto Diff Today G47.30 - Sleep apnea, unspecified, I35.0 - Nonrheumatic aortic (valve) stenosis Comprehensive [place]. Panel Fast Today G47.30 - Sleep apnea, unspecified, I35.0 - Nonrheumatic aortic (valve) stenosis UA CC w/rflx Micro + Cult Today G47.30 - Sleep apnea, unspecified, I35.0 - Nonrheumatic aortic (valve) stenosis Lipid Panel Today G47.30 - Sleep apnea, unspecified, I35.0 - Nonrheumatic aortic (valve) stenosis CT abdomen pelvis wo/w IV con Today R59.0 - Localized enlarged lymph nodes Comprehensive Met. Panel Today R59.0 - Localized enlarged lymph nodes
--- OUTSIDE RECORDS SUMMARY | 2024-04-26 19:11 | XMS_ITS ---
Author Organization [facility] Address [address] [place] [address] Care Team Providers Care Magazine Journalist Name Role Phone DIYA HONG Primary Care Provider Sergio Rodgers [phone] REASON FOR VISIT screening Encounters Encounter Location Date Provider Diagnosis [facility] [place] [address] [place] [id number] 07/06/2023 Sergio Alcala Plan Of Treatment Next Appt Details Provider Name:Sergio Alcala , 06/13/2024 03:40:00 PM, [address], [address], [place], [address], Progress Notes * SHERON WAGONEROB: (63 yo M)Acc No.[id number]:07/06/2023 COLON WITH MAC Patient:?KODI WAGONER Provider:?Sergio Alcala MD :1960???Age:62 Y???Sex:Male Stefano e:07/06/2023 Address:[place] Pcp:DIYA HONG Subjective: * Chief Complaints: * [...] MD Date:? 024 Generated for Jess lujan/Fred/Disha on:?04/26/2024 07:11 PM EDT
--- OUTSIDE RECORDS SUMMARY | 2024-04-26 19:11 | XMS_ITS ---
Author Organization [facility] Address [address] [place] [address] Care Team Providers Care Nuclear Fuels Research Engineer Name Role Phone DIYA HONG Primary Care Provider Sergio Rodgers [phone] REASON FOR VISIT cancel procedure Encounters Encounter Location Date Provider Diagnosis [facility] [address] [place] [address] 07/04/2023 Sergio Alcala Plan Of Treatment Next Appt Details Provider Name:Sergio Alcala , 06/13/2024 03:40:00 PM, [address], [address], [place], [address], Progress Notes * SHERON WAGONEROB: (63 yo M)Acc No.[id number]:07/04/2023 Patient:?KODI WAGONER :1960???Age:62 Y???Sex:Male Address:[address] [place], [address] * * Date:?
--- OUTSIDE RECORDS SUMMARY | 2024-04-26 19:11 | XMS_ITS | Patient Health Record ---
Author Organization [facility] Address [address] [place] [address] Care Team Providers Care Cap Blocker Name Role Phone DIYA HONG Primary Care Provider Sergio Rodgers Unavailable [phone] Allergies No Known Allergies Reason For Referral [...] Problem Status W/U Status Risk Notes Problem 792058753 Encounter for screening for malignant neoplasm of colon (Z12.11) Active confirmed Problem 433373858 History of adenomatous polyp of colon (Z86.010) Active confirmed Problem 246380309563179 Preprocedural examination (Z01.818) Active confirmed Problem 234416013064473 Pre-procedural examination (Z01.818) Active confirmed Problem 07164571 Diarrhea of presumed infectious origin (R19.7) Active confirmed Problem 165608103 Serrated polyp o f colon (K63.5) Active confirmed Encounters Encounter Location Date Provider Diagnosis [facility] [address] [place] [address] 07/04/2023 Sergio Alcala Plan Of Treatment Pending Test Test Name Order Date GIARDIA AG, STOOL EIA 07/16/2020 Ova and Parasite 07/16/2020 Future Test Test Name Order Date COLONOSCOPY 02/16/2018 COLONOSCOPY 12/29/2022 Next Appt Details Provider Name:Sergio Alcala , 06/13/2024 03:40:00 PM, [address], [address], [place], [address], Insurance Providers Payer Name Payer Address Payer Phone Subscriber Number Group Number Insured Name Patient Relationship to Insured Coverage Start Date Coverage End Date [employer] [address] [place] [phone] [id number] KODI WAGONER Self - patient is the insured Medical (General) History Medical History History ICD Code Denies [place],DM,CVA,Lung disease,renal dise ase Reports a neg. flex [...]
--- OUTSIDE RECORDS SUMMARY | 2024-04-26 19:11 | XMS_ITS ---
Author Organization [facility] Address [address] [place] [address] Care Team Providers Care Facility Maintenance Supervisor Name Role Phone DIYA HONG Primary Care Provider Sergio Rodgers [phone] REASON FOR VISIT screening Encounters Encounter Location Date Provider Diagnosis [facility] Out[place] [address] [place] [phone] 04/13/2023 Sergio Alcala Plan Of Treatment Next Appt Details Provider Name:Sergio Alcala , 06/13/2024 03:40:00 PM, [address], [address], [place], [address], Progress Notes * SHERON WAGONEROB: (63 yo M)Acc No.[id number]:04/13/2023 COLON WITH MAC Patient:?KODI WAGONER Provider:?Sergio Alcala MD :1960???Age:62 Y???Sex:Male Stefano e:04/13/2023 Address:[address] Pcp:DIYA HONG Subjective: * Chief Complaints: * [...] Date:? 024 Generated for Jess lujan/Fred/Disha on:?04/26/2024 07:10 PM EDT
== END 2024-04-26 17:00 ==
LOC: HO.HMCC 15:44
PROVIDERS: PCP Nurse Practitioner Family; Visit Provider Nurse Practitioner Family
DX: I35.0 Nonrheumatic aortic (valve) stenosis (principal); G47.30 Sleep apnea, unspecified; K76.89 Other specified diseases of liver; N28.89 Other specified disorders of kidney and ureter; R59.0 Localized enlarged lymph nodes

== ENCOUNTER → 2024-04-26 15:43 | Outpatient (BNVA) | payer OTHER, SELFPAY | PROVIDERS: PCP Nurse Practitioner Family; Visit Provider Nurse Practitioner Family | DX: G47.30 Sleep apnea, unspecified (principal); I35.0 Nonrheumatic aortic (valve) stenosis; K76.89 Other specified diseases of liver; N28.89 Other specified disorders of kidney and ureter; R59.0 Localized enlarged lymph nodes | CPT/HCPCS: 96127 ==

== ENCOUNTER → 2024-05-03 18:47 | Outpatient (BNV) | payer OTHER, SELFPAY | PROVIDERS: PCP Nurse Practitioner Family; Visit Provider Radiology Diagnostic Radiology | DX: M43.16 Spondylolisthesis, lumbar region (principal); D17.79 Benign lipomatous neoplasm of other sites | CPT/HCPCS: 72148 ==

== ENCOUNTER 2024-05-03 18:49 | Outpatient (REF) | payer OTHER, SELFPAY ==
--- NOTE | ~2024-05-03 | MR_ITS ---
EXAMINATION: MR LUMBAR SPINE WITHOUT CONTRAST CLINICAL INFORMATION: Hyperintense T2 bone lesion at L4 vertebra COMPARISON: MRI abdomen 01/31/2024. TECHNIQUE: MRI of the lumbar spine was obtained using routine sequences without contrast. FINDINGS: There is maintained lumbar lordosis. The vertebral heights are normal. There is grade 1 anterolisthesis L5 over S1. Rest of the vertebral alignment is normal. Mild loss of L5-S1 disc height is noted. Rest the disc heights are normal. The L1-2, L2-3 and L3-4 disc level appears unremarkable. At L4-5 disc level there is minimal bulge flattening the ventral thecal sac but without spinal canal stenosis. There is mild facet joint and ligamentum flavum hypertrophy without neural foraminal narrowing. At L5-S1 disc level there is epidural lipomatosis without spinal canal stenosis. Grade 1 anterolisthesis L5 over S1 resulting in minimal pseudo disc bulge is noted. The neural foramina are moderately narrowed bilaterally mild bilateral facet joint arthropathy seen slightly greater on the left. Posterior to L5 vertebra and the left lateral epidural space with a small round lesion suggestive of synovial cysts. Best visualized on the sagittal T2 image 11/19. There is round bright signal seen in the anterior L4 vertebra on T1 and T2 sequences suggestive of a small hemangioma or a cyst. Vaguely hypodensity is seen in the L4 vertebra on previous CT abdomen exam 07/14/2020. Conus medullaris terminates at L1 vertebra and appears normal in morphology. MR/MR lumbar spine wo con IMPRESSION: Grade 1 anterolisthesis L5 over S1 with mild degenerative disc changes L5-S1 disc level. There is bilateral L4-5 and L5-S1 facet joint arthropathy and hypertrophy. Small extradural intra spinal canal synovial cyst posterior to L5 vertebra likely arising from the left L5-S1 facet joint. There is intraspinal lipomatosis posterior to L5-S1 disc level. Electronically signed by: Tony Hilliard MD 05/04/2024 09:03 AM EDT
--- OUTSIDE RECORDS SUMMARY | 2024-05-03 18:54 | XMS_ITS ---
Author Organization [facility] Address [address] [place] [address] Care Team Providers Care Raymond Mill Operator Name Role Phone DIYA HONG Primary Care Provider Sergio Rodgers [phone] REASON FOR VISIT cancel procedure Encounters Encounter Location Date Provider Diagnosis [facility] [address] [place] [address] 07/04/2023 Sergio Alcala Plan Of Treatment Next Appt Details Provider Name:Sergio Alcala , 06/13/2024 03:40:00 PM, [address], [address], [place], [address], Progress Notes * SHERON WAGONEROB: (63 yo M)Acc No.[id number]:07/04/2023 Patient:?KODI WAGONER :1960???Age:62 Y???Sex:Male Address:[address] [place], [address] * * Date:?
--- OUTSIDE RECORDS SUMMARY | 2024-05-03 18:54 | XMS_ITS | Patient Health Record ---
Author Organization [facility] Address [address] [place] [address] Care Team Providers Care Car Cleaner Name Role Phone DIYA HONG Primary Care Provider Sergio Rodgers Unavailable [phone] Allergies No Known Allergies Reason For Referral [...] Problem Status W/U Status Risk Notes Problem 906707331 Encounter for screening for malignant neoplasm of colon (Z12.11) Active confirmed Problem 236084087 History of adenomatous polyp of colon (Z86.010) Active confirmed Problem 106272096901574 Preprocedural examination (Z01.818) Active confirmed Problem 174341162023561 Pre-procedural examination (Z01.818) Active confirmed Problem 77165449 Diarrhea of presumed infectious origin (R19.7) Active confirmed Problem 217339026 Serrated polyp o f colon (K63.5) Active confirmed Encounters Encounter Location Date Provider Diagnosis [facility] [address] [place] [address] 07/04/2023 Sergio Alcala Plan Of Treatment Pending Test Test Name Order Date GIARDIA AG, STOOL EIA 07/16/2020 Ova and Parasite 07/16/2020 Future Test Test Name Order Date COLONOSCOPY 02/16/2018 COLONOSCOPY 12/29/2022 Next Appt Details Provider Name:Sergio Alcala , 06/13/2024 03:40:00 PM, [address], [address], [place], [address], Insurance Providers Payer Name Payer Address Payer Phone Subscriber Number Group Number Insured Name Patient Relationship to Insured Coverage Start Date Coverage End Date [employer] [address] [place] [id number] KODI WAGONER Self - patient is the insured Medical (General) History Medical History History ICD Code Denies [place],DM,CVA,Lung disease,renal dise ase Reports a neg. flex [...]
--- OUTSIDE RECORDS SUMMARY | 2024-05-03 18:54 | XMS_ITS ---
Author Organization [facility] Address [address] [place] [address] Care Team Providers Care Python Developer Name Role Phone DIYA HONG Primary Care Provider Sergio Rodgers [phone] REASON FOR VISIT screening Encounters Encounter Location Date Provider Diagnosis [facility] [address] [place] [phone] 07/06/2023 Sergio Alcala Plan Of Treatment Next Appt Details Provider Name:Sergio Alcala , 06/13/2024 03:40:00 PM, [address], [address], [place], [address], Progress Notes * SHERON WAGONEROB: (63 yo M)Acc No.[id number]:07/06/2023 COLON WITH MAC Patient:?KODI WAGONER Provider:?Sergio Alcala MD :1960???Age:62 Y???Sex:Male Stefano e:07/06/2023 Address:[id number] Pcp:DIYA HONG Subjective: * Chief Complaints: * ???1. Screening. * Medical History:? Objective: * Vitals:? Assessment: Plan: * Treatment: * * The named appointment provid er may or may not be the originator of this progress note, and it is not deemed complete until electronically signed by the appointment provider. Sign off status: Pending * Provider:?Sregio Alcala MD Date:? 024 Generated for Jess lujan/Fred/Disha on:?05/03/2024 06:53 PM EDT
== END 2024-05-03 18:50 | disposition home or self-care (01) ==
LOC: HO.MRI 18:49
PROVIDERS: PCP Nurse Practitioner Family; Visit Provider Nurse Practitioner Family
DX: M89.9 Disorder of bone, unspecified (principal)
CPT/HCPCS: 72148

== ENCOUNTER 2024-06-01 14:43 | Outpatient (AMB) | payer OTHER, SELFPAY ==
--- NOTE | 2024-06-01 14:55 | MHC.OFFVIS ---
Vital Signs 06/01/24 14:56 Height 6 ft Weight 267 lb 2 oz BMI 36.2 BP 118/76 Blood Pressure Location Lt brachial Position Sitting Pulse 83 Pulse Source Pulse Oximeter Pulse Oximetry (%) 94 Oxygen Delivery Method Room Air Intake Visit Reasons: INP- BILL Intake Note: Patient referred in house Dr. Dominguez for sleep apnea. Allergies No Known Allergies Allergy (Verified 06/01/24 14:58) HPI Comments Details: 63 year old r. handed male referred to us for sleep evaluation by his PCP. He snores loudly and always talks in his sleep, at night he goes to bed at 8pm and gets up 3:15am he drives to and from [place] daily, he has chronic fatigue. He has postnasal drip and coughs frequently, he has sinus problems for years recently he went to ENT for dizziness, he was having random episodes of vision getting blurry and narrower around the perimeter, as if he is looking through binoculars. 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 CATscan/ Lumbar and Abdomen MRI reviewed with patient today. He has been noticing cognitive difficulties lately forgets numbers, appointments, and has to write everything down. Denies RLS. His mood is stable and he is motivated to lose weight as he has HTN and HLD. [facility] Medical History Aorta disorder Mild aortic valve stenosis Hepatomegaly Surgical History Hx of colonoscopy Social History Housing: House Alcohol intake: current Alcohol intake frequency: holidays/special occasions only Patient Tobacco Use Status: Never used Tobacco e-Cigarette/Vaping Use: Never Used service: No Current occupational status: employed Current occupation: [employer] Current occupational exposures/hazards: Yes Cognitive needs: No Hearing needs: No Vision needs: No Physical Exam Vital Signs: Last Vital Signs Pulse 83 06/01/24 14:56 BP 118/76 06/01/24 14:56 Pulse Ox 94 06/01/24 14:56 Oxygen Delivery Method Room Air 06/01/24 14:56 BMI result Body Mass Index 36.2 Const General: cooperative and no acute distress Nutritional Appearance: obese Orientation/consciousness: patient oriented x3 HEENT Face and sinus: Yes face symmetric Teeth and gingiva: other ([place] score of 3) Eyes Pupils: Equal, round and reactive pupils present Neck Neck: Yes full ROM Resp Effort & Inspection: normal respiratory effort, able to speak in complete sentences and Actively coughing Neuro General: patient oriented x3 and moves all extremities Cranial nerves: Yes Facial sensation intact/muscles of mastication intact, Yes Equal, round and reactive pupils present, Yes Normal accommodation reflex present, Yes Bilaterally intact EOM present, Yes Normal facial strength present, Yes Midline tongue present, Yes Ability to bilaterally rotate head present and Yes Ability to bilaterally elevate shoulders present Gait exam (Neuro): Normal gait present Coordination: [id number]-[id number]-[id number] test normal Psych Attitude: cooperative Thought process: Normal thought process present Thought content: Normal thought content present Results Reviewed Results Reviewed: MPRESSION: Grade 1 anterolisthesis L5 over S1 with mild degenerative disc changes L5-S1 disc level. There is bilateral L4-5 and L5-S1 facet joint arthropathy and hypertrophy. Small extradural intra spinal canal synovial cyst posterior to L5 vertebra likely arising from the left L5-S1 facet joint. There is intraspinal lipomatosis posterior to L5-S1 disc level. IMPRESSION: Head CT Scan No acute intracranial process seen. CT angio chest 05/2023 Bicuspid Aortic Valve L. Carotid Stenosis Assessment & Plan Assessment & Plan (1) Excessive daytime sleepiness: Code(s): G47.19 - Other hypersomnia Category: Medical (2) Loud snoring: Code(s): R06.83 - Snoring Category: Medical (3) Forgetfulness: Code(s): R68.89 - Other general symptoms and signs Category: Medical (4) Sleep apnea: Code(s): G47.30 - Sleep apnea, unspecified Category: Medical Qualifiers: Sleep apnea type: unspecified type Qualified Code(s): G47.30 - Sleep apnea, unspecified Plan Excessive Daytime Fatigue Labs B12/ Vit D/ Ferritin Snoring and sleep difficulties HST Cognitive Decline will monitor d/t fh. Orders: Orders RT home sleep study Today G47.19 - Other hypersomnia Vitamin D 25-OH Total Today G47.19 - Other hypersomnia Ferritin Today G47.19 - Other hypersomnia Vitamin B12 and Folate Today G47.19 - Other hypersomnia, G47.30 - Sleep apnea, unspecified Methylmalonic Acid Today G47.9 - Sleep disorder, unspecified, R53.83 - Other fatigue Homocysteine Today G47.9 - Sleep disorder, unspecified, R53.83 - Other fatigue Patient Instructions: Sleep Hygiene provided: set a scheduled bedtime and wake time to help regulate the circadian rhythm and balance the release of pituitary hormones. Sleep in a dark room, temperatures below 68 degrees, and no devices n bed. Limit caffeinated products 6 hours prior to bed, and limit fluids 2-4 hours prior to bed. Gentle night yoga, diffusing essential oils, and playing soft music can be relaxing. Labs are normal PSA monitor Check B12/ Vitamin D/ Ferritin Coding Level of Care Code Est Pt Level 4 (48964) Diagnoses Excessive daytime sleepiness G47.19 Loud snoring R06.83 Forgetfulness R68.89 Sleep apnea, unspecified type G47.30 Sleep apnea type: unspecified type Time Spent (min) 30
[2024-06-01 14:56] VITALS: BP 118/76; PULSE 83; O2SAT 94; BMI 36.2
--- OUTSIDE RECORDS SUMMARY | 2024-06-01 14:56 | XMS_ITS ---
Author Organization [facility] Address [address] [place] [address] Care Team Providers Care Melter Helper Name Role Phone DIYA HONG Primary Care Provider Sergio Rodgers [phone] REASON FOR VISIT cancel procedure Encounters Encounter Location Date Provider Diagnosis [facility] [address] [place] [address] 07/04/2023 Sergio Alcala Plan Of Treatment Next Appt Details Provider Name:Sergio Alcala , 06/13/2024 03:40:00 PM, [address], [address], [place], [address], Progress Notes * SHERON WAGONEROB: (63 yo M)Acc No.[id number]:07/04/2023 Patient:?JO KODI :1960???Age:62 Y???Sex:Male Address:[address] [place], [address] * true * Date:? Generated for Printi tai/Fred/eTransmitting on:?06/01/2024 02:56 PM EDT
--- OUTSIDE RECORDS SUMMARY | 2024-06-01 14:56 | XMS_ITS ---
Author Organization [facility] Address [address] [place] [address] Care Team Providers Care Instructor Hairspring Name Role Phone DIYA HONG Primary Care Provider Sergio Rodgers [phone] REASON FOR VISIT screening Encounters Encounter Location Date Provider Diagnosis [facility] [place] [facility] [address] [place] [phone] 04/13/2023 Sergio Alcala Plan Of Treatment Next Appt Details Provider Name:Sergio Alcala , 06/13/2024 03:40:00 PM, [address], [address], [place], [address], Progress Notes * SHERON WAGONEROB: (63 yo M)Acc No.[id number]:04/13/2023 COLON WITH MAC Patient:?KODI WAGONER Provider:?Sergio Alcala MD :1960???Age:62 Y???Sex:Male Stefano e:04/13/2023 Address:[place] Pcp:DIYA HONG Subjective: * Chief Complaints: * [...] MD Date:? 024 Generated for Jess lujan/Fred/Disha on:?06/01/2024 02:56 PM EDT
--- OUTSIDE RECORDS SUMMARY | 2024-06-01 14:57 | XMS_ITS | Patient Health Record ---
Author Organization [facility] Address [address] [place] [address] Care Team Providers Care Production Internship Name Role Phone DIYA DOMINGUEZ Primary Care Provider Sergio Rodgers Unavailable [phone] Allergies No Known Allergies Reason For Referral Referring Provider First Name DIYA Referring Provider Last Name GELY Referred Organization [facility] Referred Provider Sergio Alcala Referred Address [address],[place], [place],[address], Referred Provider Specialty Gastroentero logy General Notes Ara Hanson 2024 01:51:37 PM >requested a [place] [facility] referral from Diya Dominguez's office for visit with Dr. Alcala on 06-13-24 [phone] Referral Priority Routine Immunizations Vaccine Route Administration Date Status Comme [...] Problem Status W/U Status Risk Notes Problem 731105579 Encounter for screening for malignant neoplasm of colon (Z12.11) Active confirmed Problem 561403269 History of adenomatous polyp of colon (Z86.010) Active confirmed Problem 856974180678448 Preprocedural examination (Z01.818) Active confirmed Problem 126644136368086 Pre-procedural examination (Z01.818) Active confirmed Problem 45726211 Diarrhea of presumed infectious origin (R19.7) Active confirmed Problem 490138458 Serrated polyp o f colon (K63.5) Active confirmed Encounters Encounter Location Date Provider Diagnosis [facility] [address] [place] [address] 07/04/2023 Sergio Alcala Plan Of Treatment Pending Test Test Name Order Date GIARDIA AG, STOOL EIA 07/16/2020 Ova and Parasite 07/16/2020 Future Test Test Name Order Date COLONOSCOPY 02/16/2018 COLONOSCOPY 12/29/2022 Next Appt Details Provider Name:Sergio Alcala , 06/13/2024 03:40:00 PM, [address], [address], [place], [address], Insurance Providers Payer Name Payer Address Payer Phone Subscriber Number Group Number Insured Name Patient Relationship to Insured Coverage Start Date Coverage End Date [employer] [address] [place] [phone] [id number] KODI WAGONER Self - patient is the insured Medical (General) History Medical History History ICD Code Denies [place],DM,CVA,Lung disease,renal dise ase Reports a neg. flex [...]
--- OUTSIDE RECORDS SUMMARY | 2024-06-01 14:57 | XMS_ITS ---
Author Organization [facility] Address [address] [place] [address] Care Team Providers Care Business System Manager Name Role Phone DIYA HONG Primary Care Provider Sergio Rodgers [phone] REASON FOR VISIT screening Encounters Encounter Location Date Provider Diagnosis [facility] [place] [facility] [address] [place] [phone] 07/06/2023 Sergio Alcala Plan Of Treatment Next Appt Details Provider Name:Sergio Alcala , 06/13/2024 03:40:00 PM, [address], [address], [place], [address], Progress Notes * SHERON WAGONEROB: (63 yo M)Acc No.[id number]:07/06/2023 COLON WITH MAC Patient:?KODI WAGONER Provider:?Sergio Alcala MD :1960???Age:62 Y???Sex:Male Stefano e:07/06/2023 Address:[address] Pcp:DIYA HONG Subjective: * Chief Complaints: * [...]
== END 2024-06-01 15:46 | disposition home or self-care (01) ==
LOC: HO.HSMS 14:44
PROVIDERS: PCP Nurse Practitioner Family; Visit Provider Physician Assistant Medical
DX: G47.19 Other hypersomnia (principal); R06.83 Snoring; R68.89 Other general symptoms and signs; G47.30 Sleep apnea, unspecified
CPT/HCPCS: 99214

== ENCOUNTER → 2024-06-01 14:43 | Outpatient (BNVA) | payer OTHER, SELFPAY | PROVIDERS: PCP Nurse Practitioner Family; Visit Provider Physician Assistant Medical ==

== ENCOUNTER 2024-06-20 14:47 | Outpatient (REF) | payer OTHER, SELFPAY ==
--- NOTE | ~2024-06-20 | US_ITS ---
CLINICAL HISTORY: E78.5 - Hyperlipidemia, unspecified --- Additional Notes or Special Instructions: Shana DE LEON US bilateral carotid duplex Comparison: None Findings: Waveforms demonstrate normal pattern. Peak systolic velocities: Right CCA: 92 cm/s Right ICA: 73 cm/s ICA/CCA ratio: 0.7 Right ECA: Unremarkable Right vertebral artery flow antegrade. Minimal plaque noted. Left CCA: 111 cm/s Left ICA: 92 cm/s ICA/CCA ratio: 0.5 Left ECA: Unremarkable Left vertebral artery flow antegrade. Minimal plaque noted. Impression: No significant velocity altering stenosis This document has been electronically signed by: Ismael Thompson MD on 06/20/2024 18:25:34
--- OUTSIDE RECORDS SUMMARY | 2024-06-20 15:54 | XMS_ITS ---
Author Organization [facility] Address [address] [place] [address] Care Team Providers Care Press Clipper Name Role Phone DIYA HONG Primary Care Provider Sergio Rodgers [phone] Allergies No Known Allergies REASON FOR VISIT Patient presents today for a screening colon Medications Medication SIG (Take, Route, Frequency, Duration) Notes Start Date End Date Status Atorvastatin Calcium 20 MG Oral for 90 Days Active Lisinopril 10 MG Oral for 90 Days Active Indomethacin ER 75 MG TAKE 1 CAPSULE BY MOUTH TWICE A DAY Oral for 10 Days Not-Taking Finasteride 5 MG TAKE 1 TABLET BY JENNIFER TH DAILY FOR 90 DAYS Oral for 90 Days Active Immunizations Vaccine Route Administration Date Status Comme nts Influenza Unknown 06/13/2024 Refused Social History Tobacco Use: Social History [...] Negative Section Notes: Nonsmoker, no sig alcohol Vital Signs Temperature 97.5 degrees Fahrenheit 06/14/19 25 Blood pressure systolic 001 mm Hg 06/14/19 25 Blood pressure diastolic 01 mm Hg 025 Height 72 in 06/13/2024 Weight 267 lbs 06/13/2024 BMI 36.21 kg/m2 06/13/2024 Procedures Procedure Date Ordered Date Performed Result Body Sit e COLONOSCOPY 06/13/2024 N/A Encounters Encounter Location Date Provider Diagnosis [facility] [address] [place] [address] 06/13/2024 Sergio Alcala Encounter for screening for malignant neoplasm of colon Z12.11 ; Pre-procedural examination Z01.818 ; History of adenomatous polyp of colon Z86.010 and Serrated polyp of colon K63.5 Assessments Encounter Date Diagnosis (ICD Code) Assessment Notes Treatment Notes Treatment Clinical Notes Section Notes 06/13/2024 Encounter for screening for malignant neoplasm of colon (ICD-10 - Z12.11) Overall, Audi appears quite well. Given his age, good clinical appearance, and history of both a tubular adenoma and a serrated polyp removed in 2018, I did recommend a follow-up colonoscopy for further screening purposes. We did review the rationale for this in regard to colon cancer prevention. Full consent has been taken from him for this, including risks of bleeding and perforation. The procedure will be done with monitored anesthesia care. Since he just saw his defense analyst in [place] last month we will obtain clearance from him. Audi was comfortable with this plan. Thank you again for allowing me to participate in Audi's care. I shall continue to keep you advised of his progress. 06/13/2024 Pre-procedural examination (ICD-10 - Z01.818) Overall, Audi appears quite well. Given his age, good clinical appearance, and history of both a tubular adenoma and a serrated polyp removed in 2019, I did recommend a follow-up colonoscopy for further screening purposes. We did review the rationale for this in regard to colon cancer prevention. Full consent has been taken from him for this, including risks of bleeding and perforation. The procedure will be done with monitored anesthesia care. Since he just saw his defense analyst in [place] last month we will obtain clearance from him. Audi was comfortable with this plan. Thank you again for allowing me to participate in Audi's care. I shall continue to keep you advised of his progress. 06/13/2024 History of adenomatous polyp of colon (ICD-10 - Z86.010) Overall, Audi appears quite well. Given his age, good clinical appearance, and history of both a tubular adenoma and a serrated polyp removed in 2019, I did recommend a follow-up colonoscopy for further screening purposes. We did review the rationale for this in regard to colon cancer prevention. Full consent has been taken from him for this, including risks of bleeding and perforation. The procedure will be done with monitored anesthesia care. Since he just saw his defense analyst in [place] last month we will obtain clearance from him. Audi was comfortable with this plan. Thank you again for allowing me to participate in Audi's care. I shall continue to keep you advised of his progress. 06/13/2024 Serrated polyp of colon (ICD-10 - K63.5) Overall, Audi appears quite well. Given his age, good clinical appearance, and history of both a tubular adenoma and a serrated polyp removed in 2019, I did recommend a follow-up colonoscopy for further screening purposes. We did review the rationale for this in regard to colon cancer prevention. Full consent has been taken from him for this, including risks of bleeding and perforation. The procedure will be done with monitored anesthesia care. Since he just saw his defense analyst in [place] last month we will obtain clearance from him. Audi was comfortable with this plan. Thank you again for allowing me to participate in Audi's care. I shall continue to keep you advised of his progress. Plan Of Treatment Pending Test Test Name Order Date COLONOSCOPY 06/13/2024 Next Appt Details Provider Name:Sergio Alcala , 08/20/2024 01:20:00 PM, [address] [place] [address], [phone], Progress Notes * NARCISO WAGONERJORGEOB: (63 yo M)Acc No.[id number]:06/13/2024 Progress Notes Patient:?AUDI WAGONER Provider:?Sergio Alcala MD :1960???Age:63 Y???Sex:Male Stefano e:06/13/2024 Address:[address] [place] [address] [id number] Pcp:DIYA HONG Subjective: * Chief Complaints: * ???1. Patient presents today for a screening colon. * HPI: ???incontinence:? I saw Audi in the office today for evaluation of his personal history of colon polyps and need for colorectal cancer screening. I last saw Audi in 2022, at which time we had scheduled him for a follow-up screening colonoscopy for 2023 due to his history of colon polyps removed in 2018. However the colonoscopy in 2023 was canceled due to the fact that he was starting an evaluation for a thoracic aortic aneurysm in [place] and we were not able to obtain a clearance in time. He was seen there just last month and was advised everything is stable and the plan is to use to continue yearly follow-ups without any indication for surgery at this time. Audi feels well in general. He enjoys a good appetite and denies any significant heartburn or dysphagia. His bowel movements are been regular and without any signs of bleeding. He denies any abdominal pain, jaundice, nor unintentional weight loss. He denies any known family history of colorectal cancer. His most recent labs from the end of 2023 revealed a normal CBC, normal chemistries and renal function, and normal LFTs. * Medical History:?Denies GA,D M,CVA,Lung disease,renal disease, Reports a neg. flex sig or a colonoscopy in his 40's, Colonoscopy 04/2018 1 sessile serrated polyp and 1 tubular adenoma removed, Giardia in 2020 treated successfully with Flagyl, Thoracic aortic aneurysm with a bicuspid aortic valve followed by cardiology at [facility] in [place]. He was last seen there in April 2024 and had an echocardiogram. The plan is to continue to observe things with yearly exams and there is currently no indication for surgery., BPH, Hyperlipidemia, Hypertension. * Family History:?Father: trinidad rojas?Mother: alive, diagnosed with Colon polyps.? No known hx of colon cancer. no family history of liver cancer. * Social History:?Tobacco Use:?Tobacco Use/Smoking?Patient is a?nonsmoker.?Drugs/Alcohol:?Alcohol Screen?Did you have a drink containing alcohol in the past year??Yes,?How often did you have a drink containing alcohol in the past year??Monthly or less (1 point), How many drinks did you have on a typical day when you were drinking in the past year??1 or 2 drinks (0 point),?How often did you have 6 or more drinks on one occasion in the past year??Never (0 point),?Points?1,?Interpretation?Negative.?Miscellaneous:?Marital status: . 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 * Medications:?Taking Lisinopr il 10 MG Tablet Oral , Taking Atorvastatin Calcium 20 MG Tablet Oral , Taking Finasteride 5 MG Tablet TAKE 1 TABLET BY MOUTH DAILY FOR 90 DAYS Oral , Not-Taking/PRN Indomethacin ER 75 MG Capsule Extended Release TAKE 1 CAPSULE BY MOUTH TWICE A DAY Oral , Medication List reviewed and reconciled with the patient * Allergies:?N.K.D.A. Objective: * Vitals:?Wt:267lbs, Ht: 72 in , BMI:36.21Index, BP:001/01mm Hg, Temp:97.5, Wt-k.11. Assessment: * Assessment: 1.?Encounter for screening f or malignant neoplasm of colon - Z12.11 (Primary)???2.?Pre-procedural examination - Z01.818???3.?History of adenomatous polyp of colon - Z86.010???4.?Serrated polyp of colon - K63.5??? Overall, Audi appears quit e well. Given his age, good clinical appearance, and history of both a tubular adenoma and a serrated polyp removed in 2019, I did recommend a follow-up colonoscopy for further screening purposes. We did review the rationale for this in regard to colon cancer prevention. Full consent has been taken from him for this, including risks of bleeding and perforation. The procedure will be done with monitored anesthesia care. Since he just saw his defense analyst in [place] last month we will obtain clearance from him. Audi was comfortable with this plan. Thank you again for allowing me to participate in Audi's care. I shall continue to keep you advised of his progress. Plan: * Treatment: 2.?History of adenomatous polyp of colon?Procedure: COLONOSCOPY* with MAC. Needs a clearance from his Vocational Teacher in [place] opt rAa Luna 06/13/2024 04:34:41 PM EDT > Scheduled at [facility] on 08-20-2024 at 1:20 PM. requested cardiac clearance from Dr. Figueroa May's office and also requested a copy of the echo report 3.?Serrated polyp of colon?Procedure: COLONOSCOPY* with MAC. Needs a clearance from his Vocational Teacher in [place] opt Ara Luna 06/13/2024 04:34:41 PM EDT > Scheduled at [facility] on 08-20-2024 at 1:20 PM. requested cardiac clearance from Dr. Figueroa May's office and also requested a copy of the echo report * Immunizations:? Influenza (Not administered - Refused: Patient decision) * Procedure Codes:?26945 DIAGN OSTIC COLONOSCOPY * Preventive Medicine:? ??Counseling:?Care goal follow-up plan:?Above Normal BMI Follow-up?Dietary management education, guidance, and counseling,?BMI management provided?Yes.? * * The named appointment provid er may or may not be the originator of this progress note, and it is not deemed complete until electronically signed by the appointment provider. Sign off status: Pending * Provider:?Sergio Alcala MD Date:? 025 Generated for Jess lujan/Fred/Angeliitting on:?06/20/2024 03:53 PM EDT History and Physical Notes * HPI (History of Present Illness) Category Sub-Category Detail Notes Category Not es incontinence I saw Audi in the office today for evaluation of his personal history of colon polyps and need for colorectal cancer screening. I last saw Audi in 2022, at which time we had scheduled him for a follow-up screening colonoscopy for 2023 due to his history of colon polyps removed in 2019. However the colonoscopy in 2023 was canceled due to the fact that he was starting an evaluation for a thoracic aortic aneurysm in [place] and we were not able to obtain a clearance in time. He was seen there just last month and was advised everything is stable and the plan is to use to continue yearly follow-ups without any indication for surgery at this time. Audi feels well in general. He enjoys a good appetite and denies any significant heartburn or dysphagia. His bowel movements are been regular and without any signs of bleeding. He denies any abdominal pain, jaundice, nor unintentional weight loss. He denies any known family history of colorectal cancer. His most recent labs from the end of 2023 revealed a normal CBC, normal chemistries and renal function, and normal LFTs.
--- OUTSIDE RECORDS SUMMARY | 2024-06-20 15:54 | XMS_ITS ---
Author Organization [facility] Address [address] [place] [address] Care Team Providers Care Rough Rib Grader Name Role Phone DIYA HONG Primary Care Provider Sergio Rodgers [phone] Encounters Encounter Location Date Provider Diagnosis [facility] [address] [facility] [address] [place] [phone] 06/13/2024 Sergio Alcala Plan Of Treatment Next Appt Details Provider Name:Sergio Alcala , 08/20/2024 01:20:00 PM, [address] [place] [address] , [place], [place], [phone], Progress Notes * SHERON WAGONEROB: (63 yo M)Acc No.[id number]:06/13/2024 Patient:?KODI WAGONER :1960???Age:63 Y???Sex:Male Address:[address], [address] * true * Date:? Generated for Printi ng/Fatonyg/eTransmitting on:?06/20/2024 03:54 PM EDT
--- OUTSIDE RECORDS SUMMARY | 2024-06-20 15:54 | XMS_ITS | Patient Health Record ---
Author Organization [facility] Address [address] [place] [address] Care Team Providers Care Organic Preparation Technician Name Role Phone DIYA DOMINGUEZ Primary Care Provider Sergio Rodgers Unavailable [phone] Allergies No Known Allergies Reason For Referral Referring Provider First Name DIYA Referring Provider Last Name GELY Referred Organization [facility] Referred Provider Sergio Alcala Referred Address [address] [facility],[address],[place], [place],[address], Referred Provider Specialty Gastroentero logy General Notes Ara Hanson 2024 01:51:37 PM >[facility] from Diya Dominguez's office for visit with Dr. Alcala on 06-13-24 [phone] Referral Priority Routine Medications Medication SIG (Take, Route, Frequency, Duration) [...] Unknown 07/16/2020 Refused Influenza Unknown 12/29/2022 Refused Influenza Unknown 06/13/2024 Refused Social History Tobacco [...] Problem Status W/U Status Risk Notes Problem 842664151 Encounter for screening for malignant neoplasm of colon (Z12.11) Active confirmed Problem 314820707 History of adenomatous polyp of colon (Z86.010) Active confirmed Problem 591791983148605 Preprocedural examination (Z01.818) Active confirmed Problem 598921184009459 Pre-procedural examination (Z01.818) Active confirmed Problem 81721861 Diarrhea of presumed infectious origin (R19.7) Active confirmed Problem 140491861 Serrated polyp o f colon (K63.5) Active confirmed Vital Signs Temperature 97.5 degrees Fahrenheit 06/13/2024 Blood pressure diastolic 01 mm Hg 06/13/2024 Height 72 in 06/13/2024 Blood pressure systolic 001 mm Hg 06/13/2024 Weight 267 lbs 06/13/2024 BMI 36.21 kg/m2 06/13/2024 Procedures Procedure Date Ordered Date Performed Result Body Sit e COLONOSCOPY 06/13/2024 N/A Encounters Encounter Location Date Provider Diagnosis [facility] [address] [place] [phone] 06/13/2024 Sergio Alcala Encounter for screening for malignant neoplasm of colon Z12.11 ; Pre-procedural examination Z01.818 ; History of adenomatous polyp of colon Z86.010 and Serrated polyp of colon K63.5 [facility] [address] [place] [address] 07/04/2023 Sergio Alcala [facility] [address] [place] [phone] 06/13/2024 Sergio Alcala Assessments Encounter Date Diagnosis (ICD Code) Assessment [...] anesthesia care. Since he just saw his mold stacker in [place] last month we will obtain clearance from [...] anesthesia care. Since he just saw his mold stacker in [place] last month we will obtain clearance from [...] anesthesia care. Since he just saw his mold stacker in [place] last month we will obtain clearance from [...] anesthesia care. Since he just saw his mold stacker in [place] last month we will obtain clearance from him. Audi was comfortable with this plan. Thank you again for allowing me to participate in Audi's care. I shall continue to keep you advised of his progress. Plan Of Treatment Pending Test Test Name Order Date COLONOSCOPY 06/13/2024 GIARDIA AG, STOOL EIA 07/16/2020 Ova and Parasite 07/16/2020 Future Test Test Name Order Date COLONOSCOPY 02/16/2018 COLONOSCOPY 12/29/2022 Next Appt Details Provider Name:Sergio Alcala , 08/20/2024 01:20:00 PM, [address] [place] [address] , [place], [place], [phone], Insurance Providers Payer Name Payer Address Payer Phone Subscriber Number Group Number Insured Name Patient Relationship to Insured Coverage Start Date Coverage End Date [employer] [address] [place] [id number] AUDI WAGONER Self - patient is the insured Medical (General) History Medical History History ICD Code Denies [place],DM,CVA,Lung disease,renal dise ase Reports a neg. flex sig or a colonoscopy in his 40's Colonoscopy 04/2018 1 sessile serrated po lyp and 1 tubular adenoma removed Giardia in 2020 treated successfully wit h Flagyl Thoracic aortic aneurysm wit h a bicuspid aortic valve followed by cardiology at [facility] in [place]. He was last seen there in April 2024 and had an echocardiogram. The plan is to continue to observe things with yearly exams and there is currently no indication for surgery. BPH Hyperlipidemia Hypertension Surgical History Surgery Date(Month/Year)
--- OUTSIDE RECORDS SUMMARY | 2024-06-20 15:54 | XMS_ITS ---
Author Organization [facility] Address [address] [place] [address] Care Team Providers Care Utility Worker Film Processing Name Role Phone DIYA HONG Primary Care Provider Sergio Rodgesr [phone] REASON FOR VISIT screening Encounters Encounter Location Date Provider Diagnosis [facility] [address] [place] [phone] 07/06/2023 Sergio Alcala Plan Of Treatment Next Appt Details Provider Name:Sergio Alcala , 08/20/2024 01:20:00 PM, [address] [place] [address] , [place], [place], [phone], Progress Notes * SHERON WAGONEROB: (63 yo M)Acc No.[id number]:07/06/2023 COLON WITH MAC Patient:?KODI WAGONER Provider:?Sergio Alcala MD :1960???Age:62 Y???Sex:Male Stefano e:07/06/2023 Address[place] [id number] Pcp:DIYA HONG Subjective: * Chief Complaints: * ???1. Screening. * Medical History:? Objective: * Vitals:? Assessment: Plan: * Treatment: * * The named appointment provid er may or may not be the originator of this progress note, and it is not deemed complete until electronically signed by the appointment provider. Sign off status: Pending * Provider:?Sergio Alcala MD Date:? 024 Generated for Jess lujan/Fred/Angeliitting on:?06/20/2024 03:53 PM EDT
== END 2024-06-20 14:48 | disposition home or self-care (01) ==
LOC: HO.HMGCX 14:47
PROVIDERS: PCP Nurse Practitioner Family; Visit Provider Nurse Practitioner Family
DX: R42 Dizziness and giddiness (principal); I70.90 Unspecified atherosclerosis; E78.5 Hyperlipidemia, unspecified
CPT/HCPCS: 93880

== ENCOUNTER → 2024-06-20 14:50 | Outpatient (BNV) | payer OTHER, SELFPAY | PROVIDERS: PCP Nurse Practitioner Family; Visit Provider Radiology Diagnostic Radiology | DX: E78.5 Hyperlipidemia, unspecified (principal) | CPT/HCPCS: 93880 ==

== ENCOUNTER 2024-06-22 13:49 | Outpatient (REF) | payer OTHER, SELFPAY ==
--- OUTSIDE RECORDS SUMMARY | 2024-06-22 13:52 | XMS_ITS ---
Author Organization [facility] Address [address] [place] [address] Care Team Providers Care Development Mgr Name Role Phone DIYA HONG Primary Care Provider Sergio Rodgers [phone] Allergies No Known Allergies REASON FOR VISIT [...] [facility] [address] [place] [address] 06/13/2024 Sergio Alcala Encounter for screening for [...] anesthesia care. Since he just saw his certified tumor registrar in [place] last month we will obtain clearance from [...] anesthesia care. Since he just saw his certified tumor registrar in [place] last month we will obtain clearance from [...] anesthesia care. Since he just saw his certified tumor registrar in [place] last month we will obtain clearance from [...] anesthesia care. Since he just saw his certified tumor registrar in [place] last month we will obtain clearance from him. Audi was comfortable with this plan. Thank you again for allowing me to participate in Audi's care. I shall continue to keep you advised of his progress. Plan Of Treatment Pending Test Test Name Order Date COLONOSCOPY 06/13/2024 Next Appt Details Provider Name:Sergio Alcala , 08/20/2024 01:20:00 PM, [address] [place] [address], [phone], Progress Notes * NARCISO WAGONERJORGEOB: (63 yo M)Acc No.[id number]:06/13/2024 Progress Notes Patient:?AUDI WAGONER Provider:?Sergio Alcala MD :1960???Age:63 Y???Sex:Male Stefano e:06/13/2024 Address:[address] [place] [address] [facility] Pcp:DIYA HONG Subjective: * Chief Complaints: * [...] evaluation for a thoracic aortic aneurysm in [place] and we were not able to obtain [...] function, and normal LFTs. * Medical History:?Denies SC,D M,CVA,Lung disease,renal disease, Reports a neg. flex sig or a colonoscopy in his 40's, Colonoscopy 04/2018 1 sessile serrated polyp and 1 tubular adenoma removed, Giardia in 2020 treated successfully with Flagyl, Thoracic aortic aneurysm with a bicuspid aortic valve followed by cardiology at [facility] in [place]. He was last seen there in April [...] past year??Never (0 point),?Points?1,?Interpretation?Negative.?Miscellaneous:?Marital status: . 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 * Medications:?Taking Lisinopr [...] anesthesia care. Since he just saw his certified tumor registrar in [place] last month we will obtain clearance from him. Audi was comfortable with this plan. Thank you again for allowing me to participate in Audi's care. I shall continue to keep you advised of his progress. Plan: * Treatment: 2.?History of adenomatous polyp of colon?Procedure: COLONOSCOPY* with MAC. Needs a clearance from his Administrative Fellow in [place] opt Ara Luna 06/13/2024 04:34:41 PM EDT > Scheduled at [facility] on 08-20-2024 at 1:20 PM. requested cardiac clearance from Dr. Figueroa May's office and also requested a copy of the echo report 3.?Serrated polyp of colon?Procedure: COLONOSCOPY* with MAC. Needs a clearance from his Administrative Fellow in [place] opt Ara Luna 06/13/2024 04:34:41 PM EDT > Scheduled at [facility] on 08-20-2024 at 1:20 PM. requested cardiac clearance from Dr. Figueroa May's office and also requested a copy of the echo report * Immunizations:? Influenza (Not administered - Refused: Patient decision) * Procedure Codes:?67556 DIAGN OSTIC COLONOSCOPY * Preventive Medicine:? ??Counseling:?Care [...] MD Date:? 025 Generated for Jess lujan/Fred/Angeliitting on:?06/22/2024 01:52 PM EDT History and Physical Notes * [...] evaluation for a thoracic aortic aneurysm in [place] and we were not able to obtain [...]
--- OUTSIDE RECORDS SUMMARY | 2024-06-22 13:53 | XMS_ITS ---
Author Organization [facility] Address [address] [place] [address] Care Team Providers Care Sorter Packer Name Role Phone DIYA HONG Primary Care Provider Sergio Rodgers [phone] REASON FOR VISIT screening Encounters Encounter Location Date Provider Diagnosis [facility] Outpatient [address] [place] [phone] 07/06/2023 Sergio Alcala Plan Of Treatment Next Appt Details Provider Name:Sergio Alcala , 08/20/2024 01:20:00 PM, [address] [place] [address] , [place], [place], [phone], Progress Notes * SHERON WAGONEROB: (63 yo M)Acc No.[id number]:07/06/2023 COLON WITH MAC Patient:?KODI WAGONER Provider:?Sergio Alcala MD :1960???Age:62 Y???Sex:Male Stefano e:07/06/2023 Address:[place] Pcp:DIYA HONG Subjective: * Chief Complaints: * [...] MD Date:? 024 Generated for Jess lujan/Fred/Angeliitting on:?06/22/2024 01:53 PM EDT
--- OUTSIDE RECORDS SUMMARY | 2024-06-22 13:53 | XMS_ITS ---
Author Organization [facility] Address [address] [place] [address] Care Team Providers Care Transportation Maintenance Worker Name Role Phone DIYA HONG Primary Care Provider Sergio Rodgers [phone] Encounters Encounter Location Date Provider Diagnosis [facility] [address] [facility] [address] [place] [phone] 06/13/2024 Sergio Alcala Plan Of Treatment Next Appt Details Provider Name:Sergio Alcala , 08/20/2024 01:20:00 PM, [address] [place] [address] , [place], [place], [phone], Progress Notes * SHERON WAGONEROB: (63 yo M)Acc No.[id number]:06/13/2024 Patient:?KODI WAGONER :1960???Age:63 Y???Sex:Male Address:[place], [address] * true * Date:? Generated for Printi ng/Fatonyg/eTransmitting on:?06/22/2024 01:53 PM EDT
--- OUTSIDE RECORDS SUMMARY | 2024-06-22 13:53 | XMS_ITS | Patient Health Record ---
Author Organization [facility] Address [address] [place] [address] Care Team Providers Care Commissioned Security Officer Name Role Phone DIYA DOMINGUEZ Primary Care Provider Sergio Rodgers Unavailable [phone] Allergies No Known Allergies Reason For Referral Referring Provider First Name DIYA Referring Provider Last Name GELY Referred Organization [facility] Referred Provider Sergio Alcala Referred Address [address] [facility],[address],[place], [place],[address], Referred Provider Specialty Gastroentero logy General Notes Ara Hanson 2024 01:51:37 PM >[facility]uez's office for visit with Dr. Alcala on 06-13-24 [phone] Referral Priority Routine Medications Medication SIG (Take, [...] Problem Status W/U Status Risk Notes Problem 998517062 Encounter for screening for malignant neoplasm of colon (Z12.11) Active confirmed Problem 692618682 History of adenomatous polyp of colon (Z86.010) Active confirmed Problem 531417802688201 Preprocedural examination (Z01.818) Active confirmed Problem 536923209609496 Pre-procedural examination (Z01.818) Active confirmed Problem 45164888 Diarrhea of presumed infectious origin (R19.7) Active confirmed Problem 911916562 Serrated polyp o f colon (K63.5) Active confirmed Vital Signs Temperature 97.5 degrees Fahrenheit 06/13/2024 Blood pressure diastolic 01 mm Hg 06/13/2024 Height 72 in 06/13/2024 Blood pressure systolic 001 mm Hg 06/13/2024 Weight 267 lbs 06/13/2024 BMI 36.21 kg/m2 06/13/2024 Procedures Procedure Date Ordered Date Performed Result Body Sit e COLONOSCOPY 06/13/2024 N/A Encounters Encounter Location Date Provider Diagnosis [facility] [address] [place] [phone] 06/13/2024 Sergio Alcala Encounter for screening for malignant neoplasm of colon Z12.11 ; Pre-procedural examination Z01.818 ; History of adenomatous polyp of colon Z86.010 and Serrated polyp of colon K63.5 [facility] [address] [place] [phone] 07/04/2023 Sergio Alcala [facility] [address] [place] [phone] 06/13/2024 Sergio Alcala Assessments Encounter Date Diagnosis [...] anesthesia care. Since he just saw his ethnographer in [place] last month we will obtain clearance from [...] anesthesia care. Since he just saw his ethnographer in [place] last month we will obtain clearance from [...] anesthesia care. Since he just saw his ethnographer in [place] last month we will obtain clearance from [...] anesthesia care. Since he just saw his ethnographer in [place] last month we will obtain clearance from [...] Provider Name:Sergio Alcala , 08/20/2024 01:20:00 PM, [address] [place] [address] , [place], [place], [phone], Insurance Providers Payer Name Payer Address Payer Phone Subscriber Number Group Number Insured Name Patient Relationship to Insured Coverage Start Date Coverage End Date [employer] [employer] [address] [place] [phone] [id number] AUDI WAGONER Self - patient is the insured Medical (General) History Medical History History ICD Code Denies AR,DM,CVA,Lung disease,renal dise ase Reports a neg. flex sig or a colonoscopy in his 40's Colonoscopy 04/2018 1 sessile serrated po lyp and 1 tubular adenoma removed Giardia in 2020 treated successfully wit h Flagyl Thoracic aortic aneurysm wit h a bicuspid aortic valve followed by cardiology at [facility] in [place]. He was last seen there in April 2024 and had an echocardiogram. The plan is to continue to observe things with yearly exams and there is currently no indication for surgery. BPH Hyperlipidemia Hypertension Surgical History Surgery Date(Month/Year)
[2024-06-22 16:12] LABS: MANUAL DIFF FLAG NO
[2024-06-22 16:26] LABS: Basophils Absolute Auto 0.1 X10*3/uL (0.0-0.2); Basophils Percent Auto 0.6 % (0-2); Eosinophils Absolute Auto 0.1 X10*3/uL (0.0-0.4); Eosinophils Percent Auto 0.9 % (0-4); Hematocrit 45.9 % (42.0-52.0); Hemoglobin 15.5 g/dl (14.0-18.0); Imm Gran Abs Auto 0.03 X10*3/uL (0.00-0.03); Imm Gran Pct Auto 0.4 % (0.0-0.4); Lymphocytes Absolute Auto 1.9 X10*3/uL (1.2-4.9); Lymphocytes Percent Auto 24.1 % (20-40); Mean Corpuscular HGB Conc 33.8 g/dl (31.0-36.0); Mean Corpuscular Hemoglobin 29.5 pg (27.0-33.0); Mean Corpuscular Volume 87.4 fL (80.0-98.0); Mean Platelet Volume 9.9 fL (9.4-12.4); Monocytes Absolute Auto 0.6 X10*3/uL (0.1-1.2); Monocytes Percent Auto 8.1 % (2-11); Neutrophils Absolute Auto 5.1 x10*3/uL (2.0-8.3); Neutrophils Percent Auto 65.9 % (45-73); Platelet Count 287 X10*3/uL (160-400); Red Blood Count 5.25 X10*6/uL (4.60-5.80); Red Cell Distribution Width 12.6 % (11.0-16.0); White Blood Count 7.8 X10*3/uL (4.8-10.8)
[2024-06-22 17:39] LABS: Anion Gap 16 (12-20)
[2024-06-22 17:57] LABS: Alanine Aminotransferase 38 U/L (0-40); Albumin Level 4.5 g/dL (3.5-5.0); Alkaline Phosphatase 72 U/L (39-117); Aspartate Amino Transferase 30 U/L (5-37); Bilirubin Total 0.7 mg/dL (0.0-1.0); Blood Urea Nitrogen 19 mg/dL (9-16); Calcium 9.8 mg/dL (8.4-10.2); Carbon Dioxide 27 mmol/L (22-29); Chloride 103 mmol/L (96-108); Cholesterol 157 mg/dL (<200); Estimated Glomerular Filt Rate > 60; Glucose Fasting 85 mg/dL (60-99); Glucose Random 85 mg/dL (60-115); HDL Cholesterol 45 mg/dL (>40); LDL Cholesterol Calculated 87 mg/dL (<100); Potassium 4.6 mmol/L (3.3-5.1); Sodium 141 mmol/L (135-145); TSH reflex Free T4 1.01 uIU/mL (0.32-4.0); Total Protein 7.3 g/dL (6.5-8.0); Triglycerides 128 mg/dL (<150)
== END 2024-06-22 13:50 | disposition home or self-care (01) ==
LOC: HO.HMGCLDS 13:49
PROVIDERS: PCP Nurse Practitioner Family; Visit Provider Nurse Practitioner Family
DX: R59.0 Localized enlarged lymph nodes (principal); G47.30 Sleep apnea, unspecified; I35.0 Nonrheumatic aortic (valve) stenosis; Z13.6 Encounter for screening for cardiovascular disorders
CPT/HCPCS: 36415; 80053; 80061; 84443; 85025

== ENCOUNTER 2024-06-26 15:05 | Outpatient (REF) | payer OTHER, SELFPAY ==
--- OUTSIDE RECORDS SUMMARY | 2024-06-26 16:07 | XMS_ITS ---
Author Organization [facility] Address [address] [place] [address] Care Team Providers Care Thermoforming Operator Name Role Phone DIYA HONG Primary Care Provider Sergio Rodgers [phone] Allergies No Known Allergies REASON FOR VISIT [...] [facility] [address] [place] [address] 06/13/2024 Sergio Alcala Encounter for screening for [...] anesthesia care. Since he just saw his it security analyst in [place] last month we will obtain clearance from [...] anesthesia care. Since he just saw his it security analyst in [place] last month we will obtain clearance from [...] anesthesia care. Since he just saw his it security analyst in [place] last month we will obtain clearance from [...] anesthesia care. Since he just saw his it security analyst in [place] last month we will obtain clearance from him. Audi was comfortable with this plan. Thank you again for allowing me to participate in Audi's care. I shall continue to keep you advised of his progress. Plan Of Treatment Pending Test Test Name Order Date COLONOSCOPY 06/13/2024 Next Appt Details Provider Name:Sergio Alcala , 08/20/2024 01:20:00 PM, [address] [place] [address], [phone], Progress Notes * NARCISO WAGONERJORGEOB: (63 yo M)Acc No.[id number]:06/13/2024 Progress Notes Patient:?AUDI WAGONER Provider:?Sergio Alcala MD :1960???Age:63 Y???Sex:Male Stefano e:06/13/2024 Address:[address] [place] [address] [facility] Pcp:DIYA HONG Subjective: * Chief Complaints: * [...] evaluation for a thoracic aortic aneurysm in [place] and we were not able to obtain [...] function, and normal LFTs. * Medical History:?Denies ID,D M,CVA,Lung disease,renal disease, Reports a neg. flex sig or a colonoscopy in his 40's, Colonoscopy 04/2018 1 sessile serrated polyp and 1 tubular adenoma removed, Giardia in 2020 treated successfully with Flagyl, Thoracic aortic aneurysm with a bicuspid aortic valve followed by cardiology at [facility] in [place]. He was last seen there in April [...] past year??Never (0 point),?Points?1,?Interpretation?Negative.?Miscellaneous:?Marital status: . 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 * Medications:?Taking Lisinopr [...] anesthesia care. Since he just saw his it security analyst in [place] last month we will obtain clearance from him. Audi was comfortable with this plan. Thank you again for allowing me to participate in Audi's care. I shall continue to keep you advised of his progress. Plan: * Treatment: 2.?History of adenomatous polyp of colon?Procedure: COLONOSCOPY* with MAC. Needs a clearance from his Quality Assurance Lead in [place] opt Ara Luna 06/13/2024 04:34:41 PM EDT > Scheduled at [facility] on 08-20-2024 at 1:20 PM. requested cardiac clearance from Dr. Figueroa May's office and also requested a copy of the echo report 3.?Serrated polyp of colon?Procedure: COLONOSCOPY* with MAC. Needs a clearance from his Quality Assurance Lead in [place] opt Ara Luna 06/13/2024 04:34:41 PM EDT > Scheduled at [facility] on 08-20-2024 at 1:20 PM. requested cardiac clearance from Dr. Figueroa May's office and also requested a copy of the echo report * Immunizations:? Influenza (Not administered - Refused: Patient decision) * Procedure Codes:?06609 DIAGN OSTIC COLONOSCOPY * Preventive Medicine:? ??Counseling:?Care [...] MD Date:? 025 Generated for Jess lujan/Fred/Angeliitting on:?06/26/2024 04:07 PM EDT History and Physical Notes * [...] evaluation for a thoracic aortic aneurysm in [place] and we were not able to obtain [...]
--- OUTSIDE RECORDS SUMMARY | 2024-06-26 16:08 | XMS_ITS ---
Author Organization [facility] Address [address] [place] [address] Care Team Providers Care Grinder Brake Lining Name Role Phone DIYA HONG Primary Care Provider Sergio Rodgers [phone] Encounters Encounter Location Date Provider Diagnosis [facility] [address] [facility] [address] [place] [phone] 06/13/2024 Sergio Alcala Plan Of Treatment Next Appt Details Provider Name:Sergio Alcala , 08/20/2024 01:20:00 PM, [address] [place] [address] , [place], [place], [phone], Progress Notes * SHERON WAGONEROB: (63 yo M)Acc No.[id number]:06/13/2024 Patient:?KODI WAGONER :1960???Age:63 Y???Sex:Male Address:[place], [address] * true * Date:? Generated for Printi ng/Fatonyg/eTransmitting on:?06/26/2024 04:07 PM EDT
--- OUTSIDE RECORDS SUMMARY | 2024-06-26 16:08 | XMS_ITS | Patient Health Record ---
Author Organization [facility] Address [address] [place] [address] Care Team Providers Care Public Health Social Worker Name Role Phone DIYA DOMINGUEZ Primary Care Provider Sergio Rodgers Unavailable [phone] Allergies No Known Allergies Reason For Referral Referring Provider First Name DIYA Referring Provider Last Name GELY Referred Organization [facility] Referred Provider Sergio Alcala Referred Address [address] [facility],[address],[place], [place],[address], Referred Provider Specialty Gastroentero logy General Notes Ara Hanson 2024 01:51:37 PM >[facility]ya Dominguez's office for visit with Dr. Alcala on 06-13-24 [phone] Referral Priority Routine Medications Medication SIG (Take, [...] Problem Status W/U Status Risk Notes Problem 262903114 Encounter for screening for malignant neoplasm of colon (Z12.11) Active confirmed Problem 229979069 History of adenomatous polyp of colon (Z86.010) Active confirmed Problem 531811100583055 Preprocedural examination (Z01.818) Active confirmed Problem 194298458850268 Pre-procedural examination (Z01.818) Active confirmed Problem 05154417 Diarrhea of presumed infectious origin (R19.7) Active confirmed Problem 026985177 Serrated polyp o f colon (K63.5) Active confirmed Vital Signs Temperature 97.5 degrees Fahrenheit 06/13/2024 Blood pressure diastolic 01 mm Hg 06/13/2024 Height 72 in 06/13/2024 Blood pressure systolic 001 mm Hg 06/13/2024 Weight 267 lbs 06/13/2024 BMI 36.21 kg/m2 06/13/2024 Procedures Procedure Date Ordered Date Performed Result Body Sit e COLONOSCOPY 06/13/2024 N/A Encounters Encounter Location Date Provider Diagnosis [facility] [address] [place] [phone] 06/13/2024 Sergio Alcala Encounter for screening for malignant neoplasm of colon Z12.11 ; Pre-procedural examination Z01.818 ; History of adenomatous polyp of colon Z86.010 and Serrated polyp of colon K63.5 [facility] [address] [place] [phone] 07/04/2023 Sergio Alcala [facility] [address] [place] [phone] 06/13/2024 Sergio Alcala Assessments Encounter Date Diagnosis [...] anesthesia care. Since he just saw his roll repairer in [place] last month we will obtain clearance from [...] anesthesia care. Since he just saw his roll repairer in [place] last month we will obtain clearance from [...] anesthesia care. Since he just saw his roll repairer in [place] last month we will obtain clearance from [...] anesthesia care. Since he just saw his roll repairer in [place] last month we will obtain clearance from [...] Provider Name:Sergio Alcala , 08/20/2024 01:20:00 PM, [address] [place] [address] , [place], [place], [phone], Insurance Providers Payer Name Payer Address Payer Phone Subscriber Number Group Number Insured Name Patient Relationship to Insured Coverage Start Date Coverage End Date [employer] [id number] [place] [id number] AUDI WAGONER Self - patient is the insured Medical (General) History Medical History History ICD Code Denies AL,DM,CVA,Lung disease,renal dise ase Reports a neg. flex sig or a colonoscopy in his 40's Colonoscopy 04/2018 1 sessile serrated po lyp and 1 tubular adenoma removed Giardia in 2020 treated successfully wit h Flagyl Thoracic aortic aneurysm wit h a bicuspid aortic valve followed by cardiology at [facility] in [place]. He was last seen there in April 2024 and had an echocardiogram. The plan is to continue to observe things with yearly exams and there is currently no indication for surgery. BPH Hyperlipidemia Hypertension Surgical History Surgery Date(Month/Year)
--- OUTSIDE RECORDS SUMMARY | 2024-06-26 16:08 | XMS_ITS ---
Author Organization [facility] Address [address] [place] [address] Care Team Providers Care Second Language Tutor Name Role Phone DIYA HONG Primary Care Provider Sergio Rodgers [phone] REASON FOR VISIT screening Encounters Encounter Location Date Provider Diagnosis [facility] Outpatient [address] [place] [phone] 07/06/2023 Sergio Alcala Plan Of Treatment Next Appt Details Provider Name:Sergio Alcala , 08/20/2024 01:20:00 PM, [address] [place] [address] , [place], [place], [phone], Progress Notes * SHERON WAGONEROB: (63 yo M)Acc No.[id number]:07/06/2023 COLON WITH MAC Patient:?KODI WAGONER Provider:?Sergio Alcala MD :1960???Age:62 Y???Sex:Male Stefano e:07/06/2023 Address:[place] Pcp:DIYA HONG Subjective: * Chief Complaints: * [...] MD Date:? 024 Generated for Jess lujan/Fred/Angeliitting on:?06/26/2024 04:07 PM EDT
[2024-06-26 16:09] LABS: Appearance Urine Clear; Color Urine Yellow; Glucose Urine UA Negative (Negative); Leukocyte Esterase Urine Trace (Negative); Nitrite Urine Negative (Negative); Specific Gravity - Urine 1.025 (1.005-1.025); UMIC TRIGGER UACC YES; Urine Blood Negative (Negative); Urine Ketones Negative (Negative); Urine Protein Negative (Neg-Trace)
[2024-06-26 16:14] LABS: Bacteria Urine None Seen (None Seen); Hyaline Casts Urine 0-2 /LPF (0-2); RBC Urine 0-2 /HPF (0-2); Squamous Epithelial Cell Urine 0-2 /HPF (0-2); WBC Urine 0-5 /HPF (0-5)
== END 2024-06-26 15:06 | disposition home or self-care (01) ==
LOC: HO.HMGCLNP 15:05
PROVIDERS: PCP Nurse Practitioner Family; Visit Provider Nurse Practitioner Family
DX: I35.0 Nonrheumatic aortic (valve) stenosis (principal); G47.30 Sleep apnea, unspecified
CPT/HCPCS: 81001

== ENCOUNTER 2024-06-26 15:25 | Outpatient (AMB) | payer OTHER, SELFPAY ==
--- NOTE | 2024-06-26 15:41 | A.OFFVIS_ITS ---
Intake Visit Reasons: 6m/PSA/MRI Intake Note: Patient is present for 6M/PSA/MRI Urology Medication:FINASTERIDE Antibiotic Allergy:NONE Blood Thinner:NONE Safety Investigator/Cause Analyst Required: No Allergies No Known Allergies Allergy (Verified 06/26/24 15:42) HPI Comments Details: Audi is a pleasant male. He is a patient of Dr. Sparks. He is seen for the following urologic conditions - elevated PSA PSA falling on finasteride Check in 6 months to ensure stability Abdominal MRI with bilateral renal cysts Bosniak 2 proteinaceous material up to 7 cm Elevated PSA PSA 10/07 6.7, 05/08 3.6 PFSH Medical History (Updated 06/03/24 @ 20:16 by Jordan Dominguez, [facility]-) Atherosclerosis Aorta disorder Mild aortic valve stenosis Hepatomegaly Surgical History Hx of colonoscopy Social History Housing: House Alcohol intake: current Alcohol intake frequency: holidays/special occasions only Patient Tobacco Use Status: Never used Tobacco e-Cigarette/Vaping Use: Never Used service: No Current occupational status: employed Current occupation: [email or web address] Current occupational exposures/hazards: Yes Cognitive needs: No Hearing needs: No Vision needs: No Review of Systems Const Denies chills and Denies fever(s) Card Reports no additional complaints and Denies syncope Resp Denies cough GI Denies abdominal pain and Denies heartburn Reports as per HPI and Denies change in libido Neuro Denies syncope Psych Denies change in libido Endo Denies change in libido Physical Exam Const General: cooperative, healthy appearing, comfortable and no acute distress Orientation/consciousness: patient oriented x3 HEENT Face and sinus: Yes normal facial exam Mouth: moist mucous membranes Neck Neck: Yes normal visual inspection, Yes full ROM and Yes trachea midline Chest Chest palpation & inspection: normal inspection of the chest Resp Effort & Inspection: normal respiratory effort, able to speak in complete sentences and no respiratory distress GI Inspection: Yes normal to inspection Back/Spine/Pelvis Cervical Spine: normal cervical lordosis Thoracic/Lumbar Spine: thoracic and lumbar spine normal to inspection Skin General skin exam: no rashes or lesions noted Neuro General: patient oriented x3, gait normal, tone normal and moves all extremities Extrem General: Yes normal to inspection and Yes capillary refill normal Assessment & Plan Assessment & Plan (1) Elevated PSA: Code(s): R97.20 - Elevated prostate specific antigen [PSA] Category: Medical (2) Erectile dysfunction: Code(s): N52.9 - Male erectile dysfunction, unspecified Category: Medical Plan Six-month follow-up lab work Patient Instructions: This note is constructed using voice recognition software. While every effort has been made to ensure accuracy feeder worker power unit operator errors may have been included. Imaging studies, laboratory and physical exam results were discussed and reviewed in detail. No major barriers to patient understanding were identified. An opportunity to ask questions regarding the treatment plan was provided. All questions were answered. The patient expressed understanding and agreement with the above treatment plan. The patient is aware they should contact our office by phone for worsening of their current condition or the appearance of new urologic symptoms. Compliance is encouraged with any medications and followup testing that is ordered. It is a privilege to participate in the urologic care of your patient. If you have any questions or concerns regarding treatment for the above conditions, or other urologic issues, please do not hesitate to contact me. The office telephone contact is [phone]. Sincerely, Dr Julio Freeman MD, [facility] - Urology Compassionate Specialist Care for the Genitourinary System Coding Level of Care Code Est Pt Level 3 (16691) Diagnoses Elevated PSA R97.20 Erectile dysfunction N52.9
== END 2024-06-26 16:17 | disposition home or self-care (01) ==
LOC: HO.HUSH 15:26
PROVIDERS: PCP Nurse Practitioner Family; Visit Provider Urology
DX: R97.20 Elevated prostate specific antigen [PSA] (principal); N52.9 Male erectile dysfunction, unspecified
CPT/HCPCS: 99213

== ENCOUNTER 2024-07-12 15:58 | Outpatient (REF) | payer OTHER, SELFPAY ==
--- NOTE | ~2024-07-12 | CT_ITS ---
EXAMINATION: CT ABDOMEN PELVIS WITHOUT THEN WITH IV CONTRAST HISTORY: R59.0 - Localized enlarged lymph nodes COMPARISON: Comparison is made with the prior examination dated 07/14/2020 TECHNIQUE: CT scan of the abdomen and pelvis was performed before and after the intravenous administration of 85 mL Omnipaque 350. Coronal and sagittal reformatted images were generated and reviewed. Oral contrast material was not administered per department protocol. This CT exam was performed with one or more of the following dose reduction techniques: automated exposure control, adjustment of the mA and/or kV according to patient size, use of iterative reconstruction technique. DLP: 02/18/2004 mGy-cm ABDOMEN: LOWER CHEST: The visualized lung bases are clear. There is no pleural effusion. CARDIOVASCULATURE: The heart is normal in size. There is no pericardial effusion. LIVER: The liver is normal in size and contour, but demonstrates diffusely decreased attenuation, consistent with steatosis. There is a 3.9 cm cyst in the right lobe. There is a probable subcentimeter cyst in the left lobe. The hepatic and portal veins are patent. GALLBLADDER / BILE DUCTS: There is cholelithiasis. There is no intra or extrahepatic biliary ductal dilatation. SPLEEN: The spleen is normal in size. No focal splenic lesion is identified. PANCREAS: The pancreas is unremarkable in appearance. ADRENAL GLANDS: Within normal limits. KIDNEYS/RETROPERITONEUM: No renal calculi are identified. There is no hydronephrosis. There are two adjacent cysts at the lower pole of the right kidney measuring 5.3 and 4.5 cm. There is a cyst at the upper pole of the left kidney measuring 2.3 cm and a cyst at the lower pole measuring 2.6 cm. LYMPH NODES: No abdominal or pelvic lymphadenopathy. VASCULATURE: The abdominal aorta is normal in caliber. MESENTERY/PERITONEUM: No free fluid. No masses. There is no free intraperitoneal gas. STOMACH: The stomach is collapsed, limiting evaluation. SMALL BOWEL: The small bowel is normal in caliber. COLON: The colon is unremarkable. APPENDIX: Normal. URINARY BLADDER/PELVIC ORGANS: The urinary bladder is unremarkable. The prostate is normal in size. BONES / SOFT TISSUES: There are bilateral fat-containing inguinal hernias. There is bilateral spondylolysis of L5 without spondylolisthesis. There is degenerative disc disease of the spine. CT/CT abdomen pelvis wo/w IV con IMPRESSION: 1. No evidence of abdominal or pelvic lymphadenopathy. 2. Hepatic steatosis. 3. Cholelithiasis. 4. Hepatic and bilateral renal cysts as described. 5. Fat-containing bilateral inguinal hernias. Electronically signed by: Sergio Reed MD 07/13/2024 07:47 AM EDT
[2024-07-12] MEDS: iohexoL 350 MG/ML 100 ML INFUS..BTL IV (16:48)
== END 2024-07-12 15:59 | disposition home or self-care (01) ==
LOC: HO.CT 15:58
PROVIDERS: PCP Nurse Practitioner Family; Visit Provider Nurse Practitioner Family
DX: R59.0 Localized enlarged lymph nodes (principal)
CPT/HCPCS: 74178; Q9967

== ENCOUNTER → 2024-07-12 15:59 | Outpatient (BNV) | payer OTHER, SELFPAY | PROVIDERS: PCP Nurse Practitioner Family; Visit Provider Radiology Diagnostic Radiology | DX: K76.0 Fatty (change of) liver, not elsewhere classified (principal); K80.00 Calculus of gallbladder with acute cholecystitis without obstruction; N28.1 Cyst of kidney, acquired; K40.20 Bilateral inguinal hernia, without obstruction or gangrene, not specified as recurrent | CPT/HCPCS: 74178 ==

== ENCOUNTER 2024-08-20 10:27 | Day surgery (SDC) | payer OTHER, SELFPAY ==
--- OUTSIDE RECORDS SUMMARY | 2024-07-19 13:20 | XMS_ITS ---
Author Organization [facility] Address [address] [place] [address] Care Team Providers Care Warpman Name Role Phone DIYA HONG Primary Care Provider Sergio Rodgers [phone] Allergies No Known Allergies REASON FOR VISIT [...] [facility] [address] [place] [address] 06/13/2024 Sergio Alcala Encounter for screening for [...] anesthesia care. Since he just saw his wire stitcher in [place] last month we will obtain clearance from [...] anesthesia care. Since he just saw his wire stitcher in [place] last month we will obtain clearance from [...] anesthesia care. Since he just saw his wire stitcher in [place] last month we will obtain clearance from [...] anesthesia care. Since he just saw his wire stitcher in [place] last month we will obtain clearance from him. Audi was comfortable with this plan. Thank you again for allowing me to participate in Audi's care. I shall continue to keep you advised of his progress. Plan Of Treatment Pending Test Test Name Order Date COLONOSCOPY 06/13/2024 Next Appt Details Follow Up: prn, Reason: Provider Name:Sergio Alcala , 08/20/2024 01:20:00 PM, [address] [place] [address], [id number], Progress Notes * NARCISO WAGONERJORGEOB: 9 (63 yo M)Acc No.[id number]:06/13/2024 Progress Notes Patient:?NARCISO WAGONEREL Provider:?Sergio Alcala MD :1960???Age:63 Y???Sex:Male Stefano e:06/13/2024 [facility] Pcp:DIYA HONG Subjective: * Chief Complaints: * ???Patient presents today fo r a screening colon * HPI: ???incontinence:? I saw Audi in [...] evaluation for a thoracic aortic aneurysm in [place] and we were not able to obtain a clearance in time. He was seen there just last month and was advised everything is stable and the plan is to continue yearly follow-ups without any indication for surgery at this time. Audi feels well in general. He enjoys a good appetite and denies any significant heartburn or dysphagia. His bowel movements have been regular and without any signs of bleeding. He denies any abdominal pain, jaundice, nor unintentional weight loss. He denies any known family history of colorectal cancer. His most recent labs from the end of 2023 revealed a normal CBC, normal chemistries and renal function, and normal LFTs. * ROS:?General/Constitutional:?Change in appetite?admits, that is associated with weight loss.?Chills?denies.?Fatigue?admits.?Ophthalmologic:?Comments?all negative.?ENT:?Comments?all negative.?Respiratory:?hemoptysis?denies.?Cough?denies.?Cardiovascular:?Chest pain?denies.?Orthopnea?denies.?Gastrointestinal:?Comments?See HPI for details.?Genitourinary:?Hematuria?denies.?Dysuria?denies.?Musculoskeletal:?Painful joints?denies.?Weakness?denies.?Skin:?Itching?denies.?Rash?denies.?Neurologic:?Headache?denies.?Seizures?denies.?Psychiatric:?Comments?all negative.? * Medical History:? * Surgical History:?No Surgica l History documented. * Hospitalization/Major Diagno stic Procedure:?No Hospitalization History. * Family History:?Father: trinidad rojas?Mother: alive, diagnosed [...] past year??Never (0 point),?Points?1,?Interpretation?Negative.?Miscellaneous:?Marital status: . 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 * Medications:?TakingLisinopri l 10 MG Tablet Oral Atorvastatin Calcium 20 MG Tablet Oral Finasteride 5 MG Tablet TAKE 1 TABLET BY MOUTH DAILY FOR 90 DAYS Oral Taking Lisinopril 10 MG Tablet Oral Taking Atorvastatin Calcium 20 MG Tablet Oral Taking Finasteride 5 MG Tablet TAKE 1 TABLET BY MOUTH DAILY FOR 90 DAYS Oral Not-Taking/PRNIndomethacin ER 75 MG Capsule Extended Release TAKE 1 CAPSULE BY MOUTH TWICE A DAY Oral Medication List reviewed and reconciled with the patientNot-Taking/PRN Indomethacin ER 75 MG Capsule Extended Release TAKE 1 CAPSULE BY MOUTH TWICE A DAY Oral Medication List reviewed and reconciled with the patient * Allergies:?N.K.D.A.yes[Aller gies Verified] Objective: * Vitals:?Wt:267lbs, Ht: 72 in , BMI:36.21Index, BP:001/01mm Hg, Temp:97.5, Wt-k.11. * Examination: ???General Examination: ?GENERAL APPEARANCE:?pleasant, well nourished, well developed, in no acute distress.?EYES:?sclera non-icteric.?ORAL CAVITY:?mucosa moist.?NECK/THYROID:?no cervical lymphadenopathy, neck supple.?SKIN:?nonjaundiced, no spider angiomata.?HEART:?S1, S2 normal.?LUNGS:?clear to auscultation bilaterally.?ABDOMEN:?normal bowel sounds, no guarding or rigidity, no guarding or rigidity, no masses palpable, soft, nontender, nondistended.?EXTREMITIES:?no edema.?NEUROLOGIC:?alert and oriented.? Assessment: * Assessment: 1.?Pre-procedural examinatio n - Z01.818 (Primary)???2.?Encounter for screening for malignant neoplasm of colon - Z12.11???3.?History of adenomatous polyp of colon - Z86.010???4.?Serrated [...] anesthesia care. Since he just saw his wire stitcher in [place] last month we will obtain clearance from him. Audi was comfortable with this plan. Thank you again for allowing me to participate in Audi's care. I shall continue to keep you advised of his progress. Plan: * Treatment: 2.?History of adenomatous polyp of colon?Procedure: COLONOSCOPY* with MAC. Needs a clearance from his Structural Steel Trades Worker in [place] opt Ara Luna 06/13/2024 04:34:41 PM EDT > Scheduled at [facility] on 08-20-2024 at 1:20 PM. requested cardiac clearance from Dr. Figueroa May's office and also requested a copy of the echo report 3.?Serrated polyp of colon?Procedure: COLONOSCOPY* with MAC. Needs a clearance from his Structural Steel Trades Worker in [place] [phone] opt Ara Luna 06/13/2024 04:34:41 PM EDT > Scheduled at [facility] on 08-20-2024 at 1:20 PM. requested cardiac clearance from Dr. Figueroa May's office and also requested a copy of the echo report * Immunizations:? Influenza (Not administered - Refused: Patient decision) * Procedure Codes:?00931 DIAGN OSTIC [id number] COLORECTAL CA SCREEN DOC [id number] TOBACCO NON-[id number] BP SCR NOT PRFRM REC REASON LVJ2375G RCMND FLW-UP 10 YRS DOCD * Preventive Medicine:? ??Counseling:?Care goal follow-up plan:?Above Normal BMI Follow-up?Dietary management education, guidance, and counseling,?BMI management provided?Yes.? * Follow Up:?prn * * Sign off status: Completed true * Provider:?Sergio Alcala MD Date:? 025 Generated for Jess lujan/Fred/Angeliitting on:?07/19/2024 01:20 PM EDT History and Physical Notes * [...] evaluation for a thoracic aortic aneurysm in [place] and we were not able to obtain a clearance in time. He was seen there just last month and was advised everything is stable and the plan is to continue yearly follow-ups without any indication for surgery at this time. Audi feels well in general. He enjoys a good appetite and denies any significant heartburn or dysphagia. His bowel movements have been regular and without any signs of bleeding. He denies any abdominal pain, jaundice, nor unintentional weight loss. He denies any known family history of colorectal cancer. His most recent labs from the end of 2023 revealed a normal CBC, normal chemistries and renal function, and normal LFTs. Examination Category Sub-Category Detail Notes Category Not es General Examination GENERAL APPEARANCE: pleasant , well nourished, well developed, in no acute distress HEAD: EYES: sclera non-icteric EARS: NOSE: THROAT: NECK/THYROID: no cervical lymphade nopathy, neck supple HEART: S1, S2 normal CHEST: LUNGS: clear to auscultatio n bilaterally ABDOMEN: normal bowel sounds, no guarding or rigidity, no guarding or rigidity, no masses palpable, soft, nontender, nondistended NEUROLOGIC: alert and oriented SKIN: nonjaundiced, no spi alexis angiomata EXTREMITIES: no edema PERIPHERAL PULSES: BACK: BREASTS: MUSCULOSKELETAL: MALE GENITOURINARY: LYMPH NODES: RECTAL EXAM: FEMALE GENITOURINARY: ORAL CAVITY: mucosa moist
[2024-08-20 06:58] VITALS: BMI 36.9
[2024-08-20 10:40] VITALS: BP 136/80; PULSE 74; RESP 20; TEMP 36.9; O2SAT 96; BMI 34.4
--- NOTE | 2024-08-20 10:49 | HO.ANESPROP2 ---
Documented by User: Jihan Earl NP 08/16/24 09:54 HPI - Anesthesia Eval Consult details Narrative: 63yo M for Colonoscopy Follows [facility] heart and vascular for valve disease - letter of optimization on chart - requested last office visit note and echo ([facility] echo 2023 with mod-severe (AMANDA = 1.07) [facility] Active Problems Active Problems: All Active Problems Atherosclerosis (Acute) Dyslipidemia (Acute) Forgetfulness (Acute) Loud snoring (Acute) Excessive daytime sleepiness (Acute) Bone lesion (Acute) Retroperitoneal lymphadenopathy (Acute) Liver cyst (Acute) Screening for colon cancer (Acute) Elevated PSA (Acute) Elevated TSH (Acute) Left kidney mass (Acute) Celiac artery dissection (Acute) Kidney lesion, ely shoshone, left (Acute) Aortic stenosis (Acute) Ear itching (Acute) Vertigo (Acute) Sleep apnea (Acute) Erectile dysfunction (Acute) Physical exam (Acute) Arthritis of left knee (Acute) Screening PSA (prostate specific antigen) (Acute) Giardia (Acute) Systolic murmur (Acute) Nausea (Acute) Diarrhea (Acute) Tinea (Acute) Mild aortic valve stenosis (Acute) Past Medical History Medical History (Updated 06/03/24 @ 20:16 by Jordan Dominguez [facility]) Atherosclerosis Aorta disorder Mild aortic valve stenosis Hepatomegaly Surgical History Surgical History Hx of colonoscopy Social History Social History Housing: House Alcohol intake: current Alcohol intake frequency: holidays/special occasions only Patient Tobacco Use Status: Never used Tobacco e-Cigarette/Vaping Use: Never Used Have you been hit, kicked, punched, or otherwise hurt by someone within the past year? If so, by whom?: No Are you DNR?: No Advance Directives: No Advance Directives Information Provided: Yes service: No Current occupational status: employed Current occupation: [employer] Current occupational exposures/hazards: Yes Cognitive needs: No Hearing needs: No Vision needs: No Meds Allergies Allergy/AdvReac Type Severity Reaction Status Date / Time No Known Allergies Allergy Verified 06/26/24 15:42 Home Medications ?Medication ?Instructions ?Recorded ?Confirmed ?Last Taken ?Type lisinopril 10 mg tablet 10 mg PO DAILY 04/26/24 08/20/24 Unknown History Exam Pertinent Lab Results Pertinent Lab Results: Laboratory Tests 06/22/24 14:55 WBC 7.8 Hgb 15.5 Hct 45.9 Plt Count 287 Sodium 141 Potassium 4.6 Chloride 103 Carbon Dioxide 27 BUN 19 H Creatinine 1.09 Narrative Narrative: ECHO 2023 Conclusions: - 1. Normal LV ejection fraction 55-60% with mild LVH with impaired relaxation filling pattern 2. Moderate to severe aortic stenosis 3. Normal RV systolic pressure 4. Mildly dilated ascending aorta at 4.3 cm 5. No gross pericardial effusion Aortic Valve AoV Pk Walt: 3.39 AoV Mn Walt: 2.67 AoV VTI: 0.74 AoV Pk Grad: 46.00 Aov Mn Grad: 31.00 AMANDA Cont.VTI: 1.07 Assessment and Plan Assessment Anesthesia Assessment: Chart Reviewed Documented by User: Lorelei Cline DO 08/20/24 10:50 HPI - Anesthesia Eval Consult details Narrative: 63yo M for Colonoscopy Follows [facility] heart and vascular for valve disease - letter of optimization on chart [facility] Past Medical History Medical History (Updated 06/03/24 @ 20:16 by Jordan Dominguez, [facility] Atherosclerosis Aorta disorder Mild aortic valve stenosis Hepatomegaly Family History Family history of problems with anesthesia: No Surgical History Surgical History Hx of colonoscopy History of Problems with Anesthesia: No Social History Social History Housing: House Alcohol intake: current Alcohol intake frequency: holidays/special occasions only Patient Tobacco Use Status: Never used Tobacco e-Cigarette/Vaping Use: Never Used Have you been hit, kicked, punched, or otherwise hurt by someone within the past year? If so, by whom?: No Are you DNR?: No Advance Directives: No Advance Directives Information Provided: Yes service: No Current occupational status: employed Current occupation: [employer] Current occupational exposures/hazards: Yes Cognitive needs: No Hearing needs: No Vision needs: No Meds Allergies Allergy/AdvReac Type Severity Reaction Status Date / Time No Known Allergies Allergy Verified 06/26/24 15:42 Home Medications ?Medication ?Instructions ?Recorded ?Confirmed ?Last Taken ?Type lisinopril 10 mg tablet 10 mg PO DAILY 04/26/24 08/20/24 Unknown History Exam Exam Date and Time: 08/20/24 1049 Height,Weight and Vital Signs: Height 6 ft Weight 115.031 kg Vital Signs Temperature 98.4 F 08/20/24 10:40 Pulse Rate 74 08/20/24 10:40 Respiratory Rate 20 08/20/24 10:40 Blood Pressure 136/80 08/20/24 10:40 Pulse Oximetry 96 08/20/24 10:40 Oxygen Delivery Method Room Air 08/20/24 10:40 Temperature 98.4 F 08/20/24 10:40 Pulse Rate 74 08/20/24 10:40 Respiratory Rate 20 08/20/24 10:40 Blood Pressure 136/80 08/20/24 10:40 Pulse Oximetry 96 08/20/24 10:40 Oxygen Delivery Method Room Air 08/20/24 10:40 Airway Mallampati Class: II TM Dist: >3cm Neck ROM: Full Loose/Missing/Broken Teeth: No (patient denies any loose or broken teeth) Heart: S1S2 Lungs: CTAB Assessment and Plan Assessment Anesthesia Assessment: Anesthesia Plan Discussed and Chart Reviewed Final Anesthetic Review Family History of Problems with Anesthesia: No History of Problems with Anesthesia: No NPO: Yes ASA Class: III Final Preanesthetic Review: No Changes in Pt Med Stat, Meds/Allgs Chart Reviewed, Consent Obtained/Reviewed and Anes Risks/Benef Reviewed Patient Risk: Intermediate Procedure Risk: Low Anesthetic Plan Anesthetic Plan: MAC: and Agree w/ Assess. and Plan Disposition: Standard PACU
[2024-08-20] MEDS: Lactated Ringers 1,000 ML 100 ML IVCONT (10:50)
[2024-08-20 13:02] VITALS: BP 108/68; PULSE 80; RESP 20; TEMP 36.1; O2SAT 98
--- NOTE | 2024-08-20 13:05 | P.BOP_ITS ---
Brief Operative Note Date of Service: 08/20/24 Pre-op diagnosis: Screening Post-op diagnosis: other (Polyps) Procedure: Colonoscopy to the cecum and TI with bx/removal of polyps and cold snare polypectomy Surgeon: Sergio Alcala MD Was an Tank [employer] Wood used for this Procedure?: No Estimated blood loss (mL): 2.0 Pathology: other (A. Ascending colon polyp B. Polyps at 60cm) Condition: stable Disposition: PACU
[2024-08-20 13:15] VITALS: BP 115/69; PULSE 80; RESP 20; TEMP 36.1; O2SAT 99
[2024-08-20 13:30] VITALS: BP 146/85; PULSE 63; RESP 16; TEMP 36.1; O2SAT 100
--- NOTE | 2024-08-20 13:32 | OP_ITS ---
DATE OF SERVICE: 08/20/2024 SURGEON: Sergio Alcala MD INDICATIONS: The patient presents for followup of personal history of colon polyps and colorectal cancer screening. Full consent has been obtained from him for this, including risks of bleeding and perforation. PREOPERATIVE DIAGNOSIS: POSTOPERATIVE DIAGNOSIS: PROCEDURE PERFORMED: Colonoscopy to the cecum and terminal ileum with biopsy and removal of polyps and cold snare polypectomy x1. ESTIMATED BLOOD LOSS: COMPLICATIONS: ANESTHESIA: Monitored anesthesia care. ASSISTANTS: SPECIMENS: PREOPERATIVE DIAGNOSES: Colorectal cancer screening and personal history of colon polyps. POSTOPERATIVE DIAGNOSES: Colorectal cancer screening and personal history of colon polyps, colon polyps, diverticulosis, and internal hemorrhoids. DESCRIPTION OF PROCEDURE: The patient was placed in the left lateral decubitus position. The digital rectal exam revealed no abnormalities. The Olympus video pediatric colonoscope was entered into the rectum and advanced easily to the cecum. Once in the cecum, I did identify normal-appearing cecal pouch with appendiceal orifice and a normal-appearing ileocecal valve. The terminal ileum was cannulated and appeared normal. Scope was withdrawn back in the colon. The entire cecum and ileocecal valve appeared normal. The scope was slowly withdrawn assessing all mucosal surfaces carefully. Preparation was excellent. In the very proximal ascending colon was a flat, approximately 2 or 3 mm polyp, which was biopsied and completely removed with a cold biopsy forceps. Between 60 and 70 cm were 2 polyps. One was approximately 5 mm in length and very narrow on a fold. This was removed in piecemeal fashion completely with a cold biopsy forceps. In the same vicinity was an approximately 6 mm polyp, which was removed by cold snare polypectomy and recovered by suction. The polypectomy site appeared clean, without any sign of residual polyp nor significant bleeding. I did not visualize any sign of other polyps, colitis, nor angiodysplasia. There was a mild amount of sigmoid diverticulosis. In the rectum, scope was retroflexed visualizing internal hemorrhoids, but no other pathology. The rectal mucosa appeared normal. Scope was straightened and withdrawn from the patient. He tolerated procedure well and was returned to the recovery area in stable condition. IMPRESSION: 1. Colon polyps. 2. Diverticulosis. 3. Internal hemorrhoids. PLAN: The results of the pathology will be checked. I would recommend a repeat colonoscopy in 5 years for further screening. He was advised not to use any aspirin and NSAIDs for 1 week. This has been discussed with his . MD JING Loja/MELISSA / [id number] MTDD
== END 2024-08-20 13:49 | disposition home or self-care (01) ==
PROVIDERS: PCP Nurse Practitioner Family; Visit Provider Internal Medicine
PROC: 0DJD8ZZ Inspection of Lower Intestinal Tract, Via Natural or Artificial Opening Endoscopic (ICD-10-PCS; CPT 45378; principal; 2024-08-20 11:30)
DX: Z12.11 Encounter for screening for malignant neoplasm of colon (principal); Z86.0101 Personal history of adenomatous and serrated colon polyps; D12.2 Benign neoplasm of ascending colon; K63.5 Polyp of colon; K57.30 Diverticulosis of large intestine without perforation or abscess without bleeding; K64.8 Other hemorrhoids; I10 Essential (primary) hypertension; I35.0 Nonrheumatic aortic (valve) stenosis; I71.20 Thoracic aortic aneurysm, without rupture, unspecified; E78.5 Hyperlipidemia, unspecified; N40.0 Benign prostatic hyperplasia without lower urinary tract symptoms; Z79.899 Other long term (current) drug therapy
CPT/HCPCS: 45385; 45380; 88305; J2371; J2704

== ENCOUNTER → 2024-08-23 15:30 | Outpatient (REF) | payer OTHER, SELFPAY ==
--- OUTSIDE RECORDS SUMMARY | 2024-08-23 15:31 | XMS_ITS | Patient Health Record ---
Author Organization [facility] Address [address] [place] [address] Care Team Providers Care Marketing Programs Specialist Name Role Phone DIYA DOMINGUEZ Primary Care Provider Sergio Rodgers Unavailable [phone] Allergies No Known Allergies Results Component Value Reference Range Notes Pathology (Not yet reviewed by provider) Interpretation: Performing Lab:[facility], [address] [place] [phone] Notes/Report: Reason For Referral Referring Provider First Name DIYA Referring Provider Last Name GELY Referred Organization [facility] Referred Provider Sergio Alcala Referred Address [facility] [address] [place] [phone], Referred Provider Specialty Gastroentero logy General Notes Ara Hanson 2024 01:51:37 PM >requested a new [facility] referral from Diya Dominguez's office for visit with Dr. Alcala on 06-13-24 [phone] Referral Priority Routine Medications Medication SIG (Take, [...] Problem Status W/U Status Risk Notes Problem 532685039 Encounter for screening for malignant neoplasm of colon (Z12.11) Active confirmed Problem 928362081 History of adenomatous polyp of colon (Z86.010) Active confirmed Problem 446337603942817 Preprocedural examination (Z01.818) Active confirmed Problem 161562753931915 Pre-procedural examination (Z01.818) Active confirmed Problem 05172777 Diarrhea of presumed infectious origin (R19.7) Active confirmed Problem 928024176 Serrated polyp o f colon (K63.5) Active confirmed Vital Signs Temperature 97.5 degrees Fahrenheit 06/13/2024 Blood pressure diastolic 01 mm Hg 06/13/2024 Height 72 in 06/13/2024 Blood pressure systolic 001 mm Hg 06/13/2024 Weight 267 lbs 06/13/2024 BMI 36.21 kg/m2 06/13/2024 Procedures Procedure Date Ordered Date Performed Result Body Sit e COLONOSCOPY 06/13/2024 N/A Encounters Encounter Location Date Provider Diagnosis [facility] [place] [address] [place] [phone] 08/20/2024 Sergio Alcala [facility] [address] [facility] [address] [place] [phone] 06/13/2024 Sergio Alcala Encounter for screening for malignant neoplasm of colon Z12.11 ; Pre-procedural examination Z01.818 ; History of adenomatous polyp of colon Z86.010 and Serrated polyp of colon K63.5 [facility] [address] [facility] [address] [place] [address] 06/13/2024 Sergio Alcala Assessments Encounter Date Diagnosis [...] anesthesia care. Since he just saw his upholstery tech in [place] last month we will obtain clearance from [...] anesthesia care. Since he just saw his upholstery tech in [place] last month we will obtain clearance from [...] anesthesia care. Since he just saw his upholstery tech in [place] last month we will obtain clearance from [...] anesthesia care. Since he just saw his upholstery tech in [place] last month we will obtain clearance from him. Audi was comfortable with this plan. Thank you again for allowing me to participate in Audi's care. I shall continue to keep you advised of his progress. Plan Of Treatment Pending Test Test Name Order Date COLONOSCOPY 06/13/2024 GIARDIA AG, STOOL EIA 07/16/2020 Pathology 08/20/2024 Ova and Parasite 07/16/2020 Future Test Test Name Order Date COLONOSCOPY 02/16/2018 COLONOSCOPY 12/29/2022 Insurance Providers Payer Name Payer Address Payer Phone Subscriber Number Group Number Insured Name Patient Relationship to Insured Coverage Start Date Coverage End Date [employer] [address] [place] [phone] [id number] AUDI WAGONER Self - patient is the insured Medical (General) History Medical History History ICD Code Denies UT,DM,CVA,Lung disease,renal dise ase Reports a neg. flex sig or a colonoscopy in his 40's Colonoscopy 04/2018 1 sessile serrated po lyp and 1 tubular adenoma removed Giardia in 2020 treated successfully wit h Flagyl Thoracic aortic aneurysm wit h a bicuspid aortic valve followed by cardiology at [facility] in [place]. He was last seen there in April 2024 and had an echocardiogram. The plan is to continue to observe things with yearly exams and there is currently no indication for surgery. BPH Hyperlipidemia Hypertension Surgical History Surgery Date(Month/Year)
--- OUTSIDE RECORDS SUMMARY | 2024-08-23 15:32 | XMS_ITS | Patient Health Record ---
[facility] Address [address] [facility] [place] [address] Care Team Providers Care Lace Weaver Name Role Phone George Lopez MD Primary Care Provider Aleena Collier Unavailable [phone] Reason For Referral No Information Social History Tobacco use other than smoking: Question Answer Notes Are you an other tobacco user? No Problems No Known Problems Plan Of Treatment No Information Insurance Providers Payer Name Payer Address Payer Phone Subscriber Number Group Number Insured Name Patient Relationship to Insured Coverage Start Date Coverage End Date Cigna [address] [place] [phone] [id number] Audi Wagoner Self - patient is the insured Medical (General) History Medical History History ICD Code Measles
== END ==
LOC: HO.SL 15:30
PROVIDERS: PCP Nurse Practitioner Family; Visit Provider Physician Assistant Medical
DX: Z13.89 Encounter for screening for other disorder (principal)

== ENCOUNTER 2024-09-07 14:50 | Outpatient (AMB) | payer OTHER, SELFPAY ==
--- OUTSIDE RECORDS SUMMARY | 2024-09-07 14:53 | XMS_ITS | Patient Health Record ---
[facility] Address [address] [facility] [place] [address] Care Team Providers Care Contract Administration Coordinator Name Role Phone George Lopez MD Primary Care Provider Aleena Collier Unavailable [phone] Reason For Referral No Information Social History Tobacco use other than smoking: Question Answer Notes Are you an other tobacco user? No Problems No Known Problems Plan Of Treatment No Information Insurance Providers Payer Name Payer Address Payer Phone Subscriber Number Group Number Insured Name Patient Relationship to Insured Coverage Start Date Coverage End Date Cigna [address] [place] [phone] [id number] Audi Wagoner Self - patient is the insured Medical (General) History Medical History History ICD Code Measles
--- OUTSIDE RECORDS SUMMARY | 2024-09-07 14:53 | XMS_ITS | Encounter Summary ---
Author Organization [facility] Address [address] [place] [phone] Phone Care Team Providers Care Armoured Car Escort Name Role Phone Elvie Rabago MD Primary Care Provider Jordan Dominguez NP Unavailable [phone] César Rodrigez MD Unavailable [phone] Jordan Dominguez NP Unavailable [phone] Jordan Dominguez NP Primary Care Provider + Encounter Details Date Type Department Care Team (Late st Contact Info) Description 05/16/2023 Procedure Pass [facility] [address] [place] [address] Social History Tobacco Use Types Packs/Day Years Used Date Smoking Tobacco: Never Assessed Education Answer Date Recorded Are you interested in more education? Not on isaak e 05/16/2023 Are you concerned about learning? Not on file 05/16/2023 No 05/16/2023 No 05/16/2023 Digital Access Answer Date Recorded No 05/16/2023 No 05/16/2023 Reliable internet access at home? Not on file 05/16/2023 Device with a working camera? Not on file Sex and Gender Information Value Date Recorded Sex Assigned at Not on file Legal Sex Male 1:49 PM EDT Gender Identity Not on file Sexual Orientation Not on file documented as of this encounter Plan of Treatment Upcoming Encounters Date Type Department Care Team (Late st Contact Info) Description 01/18/2025 11:40 AM EST Office Visit [facility] [address] [place] [address] Figueroa May MD [address] [place] [address] [email or web address] documented as of this encounter Visit Diagnoses Not on filedocumented in this encounter Care Teams Armoured Car Escort Relationship Specialty Start Date End Date Elvie Rabago MD [facility] [place] [address] PCP - General 05/16/23 06/12/24 Jordan Dominguez NP [address] [place] [address] [email or web address] PCP - General Nurse Practitioner 06/13/24 Jordan Dominguez NP [address] [place] [address] [email or web address] Nurse Practitioner 05/17/23 05/17/23 César Rodrigez MD [address] [place] [address] [place] [address] Cardiology 05/17/23 05/25/23 Jordan Dominguez NP [address] [place] [address] [email or web address] Nurse Practitioner 05/26/23 documented as of this encounter Additional Source Comments The information contained in this document represents components of the legal health record. It is not the complete legal health record.[facility]
--- OUTSIDE RECORDS SUMMARY | 2024-09-07 14:53 | XMS_ITS | Patient Health Record ---
Author Organization [facility] Address [address] [place] [address] Care Team Providers Care Mixer Runner Name Role Phone DIYA DOMINGUEZ Primary Care Provider Sergio Rodgers Unavailable [phone] Allergies No Known Allergies Results Component Value Reference Range Notes Pathology (Not yet reviewed by provider) Interpretation: Performing Lab:[facility], [address] [place] [id number] Notes/Report: Reason For Referral Referring Provider First Name DIYA Referring Provider Last Name GELY Referred Organization [facility] Referred Provider Sergio Alcala Referred Address [address] [facility] [address] [place] [id number], Referred Provider Specialty Gastroentero logy General Notes Ara Hanson 2024 01:51:37 PM >requested a new [facility] referral from Diya Dominguez's office for visit with Dr. Alcala on 06-13-24 [phone] Referral Priority Routine Medications Medication SIG (Take, [...] Problem Status W/U Status Risk Notes Problem [id number] Encounter for screening for malignant neoplasm of colon (Z12.11) Active confirmed Problem 346162069 History of adenomatous polyp of colon (Z86.010) Active confirmed Problem [id number] Preprocedural examination (Z01.818) Active confirmed Problem [id number] Pre-procedural examination (Z01.818) Active confirmed Problem 47631845 Diarrhea of presumed infectious origin (R19.7) Active confirmed Problem 053181138 Serrated polyp o f colon (K63.5) Active confirmed Vital Signs Temperature 97.5 degrees Fahrenheit 06/13/2024 Blood pressure diastolic 01 mm Hg 06/13/2024 Height 72 in 06/13/2024 Blood pressure systolic 001 mm Hg 06/13/2024 Weight 267 lbs 06/13/2024 BMI 36.21 kg/m2 06/13/2024 Procedures Procedure Date Ordered Date Performed Result Body Sit e COLONOSCOPY 06/13/2024 N/A Encounters Encounter Location Date Provider Diagnosis [facility] [address] [place] [id number] 08/20/2024 Sergio Alcala [facility] [address] [facility] [address] [place] [phone] 06/13/2024 Sergio Alcala Encounter for screening for malignant neoplasm of colon Z12.11 ; Pre-procedural examination Z01.818 ; History of adenomatous polyp of colon Z86.010 and Serrated polyp of colon K63.5 [facility] [address] [facility] [address] [place] [address] 06/13/2024 Sergio Alcala Assessments Encounter Date Diagnosis [...] anesthesia care. Since he just saw his delivery nurse in [place] last month we will obtain clearance from [...] anesthesia care. Since he just saw his delivery nurse in [place] last month we will obtain clearance from [...] anesthesia care. Since he just saw his delivery nurse in [place] last month we will obtain clearance from [...] anesthesia care. Since he just saw his delivery nurse in [place] last month we will obtain clearance from [...] Insured Coverage Start Date Coverage End Date [employer] [address] [place] [phone] [id number] AUDI WAGONER Self - patient is the insured Medical (General) History Medical History History ICD Code Denies VT,DM,CVA,Lung disease,renal dise ase Reports a neg. flex sig or a colonoscopy in his 40's Colonoscopy 04/2018 1 sessile serrated po lyp and 1 tubular adenoma removed Giardia in 2020 treated successfully wit h Flagyl Thoracic aortic aneurysm wit h a bicuspid aortic valve followed by cardiology at [facility] in [place]. He was last seen there in April 2024 and had an echocardiogram. The plan is to continue to observe things with yearly exams and there is currently no indication for surgery. BPH Hyperlipidemia Hypertension Surgical History Surgery Date(Month/Year)
--- NOTE | 2024-09-07 15:14 | MHC.OFFVIS ---
Vital Signs 09/07/24 15:15 Height 6 ft Weight 250 lb BMI 33.9 Pulse 85 Pulse Source Pulse Oximeter Pulse Oximetry (%) 96 Oxygen Delivery Method Room Air Intake Visit Reasons: 3 month follow up Intake Note: Patient presents follow up Sleep. HST done 08/23. report not read yet. Accompanied by: Self / Same As Patient Allergies No Known Allergies Allergy (Verified 09/07/24 15:20) HPI Comments Details: 63 year old r. handed male referred to us for sleep evaluation by his PCP. August 23, 2024 HST pending He snores loudly and talks in his sleep, he goes to bed at 8pm and gets up 3:15am he drives to and from [place] daily, he has chronic fatigue. He says since starting Lisinopril he started to cough and continues to have postnasal drip due to chronic sinus problems. He went to ENT for dizziness, and was having random episodes of vision getting blurry with narrowing around the perimeter, as if he is looking through binoculars, maybe due to high pressure and he will f/u with ribbon weaver. 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 He says his stm is poor with cognitive difficulties lately he forgets numbers, appointments, and has to write everything down. Denies RLS. His mood is stable and he is motivated to lose weight as he has HTN and HLD. He does not smoke or drink alcohol. [facility] Medical History Atherosclerosis Aorta disorder Mild aortic valve stenosis Hepatomegaly Surgical History Hx of colonoscopy Social History Housing: House Alcohol intake: current Alcohol intake frequency: holidays/special occasions only Patient Tobacco Use Status: Never used Tobacco e-Cigarette/Vaping Use: Never Used service: No Current occupational status: employed Current occupation: [employer] Current occupational exposures/hazards: Yes Cognitive needs: No Hearing needs: No Vision needs: No Physical Exam Vital Signs: Last Vital Signs Pulse 85 09/07/24 15:15 Pulse Ox 96 09/07/24 15:15 Oxygen Delivery Method Room Air 09/07/24 15:15 BMI result Body Mass Index 33.9 Const General: cooperative and no acute distress Nutritional Appearance: average body habitus Orientation/consciousness: patient oriented x3 HEENT Face and sinus: Yes face symmetric Eyes Pupils: Equal, round and reactive pupils present Resp Effort & Inspection: normal respiratory effort and able to speak in complete sentences Neuro General: patient oriented x3 and moves all extremities Cranial nerves: Yes Equal, round and reactive pupils present, Yes Normal accommodation reflex present, Yes Normal facial strength present, Yes Midline tongue present, Yes Ability to bilaterally rotate head present and Yes Ability to bilaterally elevate shoulders present Cognition (Neuro): normal cognition Motor exam (neuro): 5/5 motor strength present throughout and Normal motor muscle tone present throughout Psych Appearance: grossly normal Speech and movement: Normal speech and movement present Affect: normal affect Thought process: Normal thought process present Thought content: Normal thought content present Results Reviewed Results Reviewed: HST pending Assessment & Plan Assessment & Plan (1) Excessive daytime sleepiness: Code(s): G47.19 - Other hypersomnia Category: Medical (2) Chronic coughing: Code(s): R05.3 - Chronic cough Category: Medical Plan HST is pending to r/o jocelynn. Labs to r/o fatigue. Cough chronic due to lisinopril 10mg po daily. F/U via telehealt once results are available. Orders: Orders Vitamin B12 and Folate Today G47.19 - Other hypersomnia Vitamin D 25-OH Total Today G47.19 - Other hypersomnia Ferritin Today G47.19 - Other hypersomnia Homocysteine Today G47.19 - Other hypersomnia, G47.9 - Sleep disorder, unspecified, R53.83 - Other fatigue Magnesium Today G47.19 - Other hypersomnia Methylmalonic Acid Today G47.19 - Other hypersomnia, G47.9 - Sleep disorder, unspecified, R53.83 - Other fatigue Patient Instructions: Sleep Hygiene provided: set a scheduled bedtime and wake time to help regulate the circadian rhythm and balance the release of pituitary hormones. Sleep in a dark room, temperatures below 68 degrees, and no devices n bed. Limit caffeinated products 6 hours prior to bed, and limit fluids 2-4 hours prior to bed. Gentle night yoga, diffusing essential oils, and playing soft music can be relaxing. Coding Level of Care Code Est Pt Level 4 ([address]144) Diagnoses Excessive daytime sleepiness G47.19 Chronic coughing R05.3 Time Spent (min) 20 Comment HST pending
[2024-09-07 15:15] VITALS: PULSE 85; O2SAT 96; BMI 33.9
== END 2024-09-07 15:53 | disposition home or self-care (01) ==
LOC: HO.HSMS 14:51
PROVIDERS: PCP Nurse Practitioner Family; Visit Provider Physician Assistant Medical
DX: G47.19 Other hypersomnia (principal); R05.3 Chronic cough
CPT/HCPCS: 99214

== ENCOUNTER 2024-11-12 14:53 | Outpatient (AMB) | payer OTHER, SELFPAY ==
--- OUTSIDE RECORDS SUMMARY | 2023-07-06 06:00 | XMS_ITS ---
Author Organization [facility] Address [address] [place] [address] Care Team Providers Care Court Manager Name Role Phone DIYA HONG Primary Care Provider Sergio Rodgers [phone] REASON FOR VISIT screening Encounters Encounter Location Date Provider Diagnosis [facility] [place] [address] [place], [place] [address] [id number] 07/06/2023 Sergio Alcala Plan Of Treatment No Information Progress Notes * SHERON WAGONEROB: 9 (64 yo M)Acc No.[id number]:07/06/2023 COLON WITH MAC Patient: KODI REINOSO Provider: Luis Daniel Alcala MD :1960 A ge:62 Y S ex:Male Date:07/06/2023 Address:[facility] [address] [place] Pcp:DIYA HONG Subjective: * Chief Complaints: * 1 . Screening. * Medical History: Objective: * Vitals: Assessment: Plan: * Treatment: * * The named appointment provid er may or may not be the originator of this progress note, and it is not deemed complete until electronically signed by the appointment provider. Sign off status: Pending * Provider: Luis Daniel Alcala MD Date: 0 07/06/2023 Generated for Yonathani ng/Faxing/eTransmitting on: 0 11/12/2024 04:55 PM EDT
--- OUTSIDE RECORDS SUMMARY | 2024-08-20 07:30 | XMS_ITS ---
Author Organization [facility] Address [address] [place] [address] Care Team Providers Care Trestle Mainternance Laborer Name Role Phone DIYA HONG Primary Care Provider Sergio Rodgers [phone] REASON FOR VISIT screening colon Encounters Encounter Location Date Provider Diagnosis [facility] Outpatient [address] [place], [place] [address] [phone] 08/20/2024 Sergio Alcala Plan Of Treatment No Information Progress Notes * SHERON WAGONEROB: 9 (64 yo M)Acc No.[id number]:08/20/2024 COLON WITH MAC Patient: KODI REINOSO Provider: Luis Daniel Alcala MD :1960 A ge:63 Y S ex:Male Date:08/20/2024 Address:[place] Pcp:DIYA HONG Subjective: * Chief Complaints: * 1 . Screening colon. * Medical History: Objective: * Vitals: Assessment: Plan: * Treatment: * * The named appointment provid er may or may not be the originator of this progress note, and it is not deemed complete until electronically signed by the appointment provider. Sign off status: Pending * Provider: Luis Daniel Alcala MD Date: 0 08/20/2024 Generated for Yonathani ng/Fatonyg/eTransmitting on: 0 11/12/2024 04:55 PM EDT
--- NOTE | 2024-11-12 14:57 | A.OFFPC_ITS ---
Vital Signs 11/12/24 14:58 Height 6 ft Weight 239 lb BMI 32.4 BP 124/80 Blood Pressure Location Lt brachial Position Sitting Respiration 17 Pulse 84 Pulse Source Pulse Oximeter Temp 99.0 F Temp Source Oral Pulse Oximetry (%) 97 Oxygen Delivery Method Room Air Intake Visit Reasons: PE Intake Note: Pt is here today for PE. Allergies No Known Allergies Allergy (Verified 11/12/24 15:02) Medication List - Last Reconciled 11/12/24 by BRIJESH Cesar- atorvastatin 40 mg PO DAILY 90 days finasteride 5 mg PO DAILY 90 days fluocinolone acetonide oil 0.01% (Flac Otic (ear) Oil) 5 drps otic (ear) right BID PRN 14 days lisinopril 10 mg PO DAILY Tobacco use date assessed: 11/12/24 Fall risk assessment: No Falls in past year Last assessed Fall Risk: 11/12/24 Dental Screening Dental Screen Date: 04/26/24 HPI PE HPI Details History of Present Illness The patient is a 64-year-old male presenting for a physical examination. He reports intentional weight loss through dietary modifications, specifically by eliminating sugars, which has resulted in improved symptoms of back and joint pain. The patient has a history of aortic stenosis and is under the care of a binder roller, whom he visits annually. He also follows up with a urologist for kidney cysts and PSA testing. A sleep apnea test was conducted in August, but the results are pending. The patient denies experiencing chest pain, increased dyspnea, blurred vision, fevers, chills, nausea, vomiting, abdominal pain, hematochezia, constipation, or diarrhea. His colonoscopy is current, and he is not due for another screening until 2029. 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 Health Maintenance - Colonoscopy up to date, next due in - Sleep apnea test conducted, trying to track down results/saw sleep medicine - Vaccinations reviewed and updated as n eeded Social History - Diet: Patient is actively managing t by eliminating sugars, resulting in weight loss and improved joint and back pain. Review of Systems - Cardiovascular: Denies chest pain, inc reased dyspnea. - Neurological: Denies blurred vision. - Constitutional: Denies fevers, chills. - Gastrointestinal: Denies nausea, vomit ing, abdominal pain, hematochezia, constipation, diarrhea. denies any si or hi Physical Exam General: Cooperative, healthy appearing, comfortable, no acute distress and well developed Orientation: Patient oriented x3 Limitations: No limitations Head: Normal to inspection Ears: Hearing grossly normal bilaterally Nose: Normal external nose present Face and sinus: Normal facial exam Eyes: Appearance normal, both eyes and all related structures Neck: Normal visual inspection and Yes full ROM Respiratory: Normal respiratory effort and able to speak in complete sentences. Clear to auscultation bilaterally Cardiovascular: Regular rate and rhythm. Normal S1 and S2. Systolic murmur noted on exam GI: Normal to inspection. Soft to palpation and nontender : Testicles without masses/lesions and no hernias appreciated Skin: No rashes or lesions noted Neuro: Patient oriented x3 Extremities: Normal to inspection Results - Sleep apnea test conducted in August, re avldemarts pending. Plan 1. Aortic Stenosis The patient continues to be monitored by a binder roller for aortic stenosis, with annual follow-ups to assess the condition's progression and manage any symptoms. 2. Kidney Cysts The patient is under the care of a urologist for kidney cysts, with regular PSA testing to monitor for any potential complications. 3. Liver Cysts The presence of liver cysts has been noted, and it is recommended that the patient's business project analyst be informed to ensure appropriate monitoring. 4. Sleep Apnea The patient underwent a sleep apnea test in August, and follow-up with the sleep medicine specialist is necessary to obtain the results and determine further management. Discussion Notes During the visit, we discussed the importance of continuing regular follow-ups with the binder roller for aortic stenosis and the urologist for kidney cysts. I emphasized the need to obtain the pending sleep apnea test results to guide further management. We also reviewed the patient's vaccination status and educated on vaccinations that are due. I advised the patient to maintain his current dietary modifications, which have positively impacted his joint and back pain. Patient Instructions - Continue regular follow-ups with your binder roller and urologist. - Follow up with your sleep medicine spe cialist to obtain sleep apnea test re cristin. - Maintain your current diet to support weight management and joint health. - Ensure vaccinations are up to date as discussed. [facility] Medical History Atherosclerosis Aorta disorder Mild aortic valve stenosis Hepatomegaly Surgical History Hx of colonoscopy Social History Housing: House Alcohol intake: current Alcohol intake frequency: holidays/special occasions only Patient Tobacco Use Status: Never used Tobacco e-Cigarette/Vaping Use: Never Used service: No Current occupational status: employed Current occupation: [employer] Current occupational exposures/hazards: Yes Cognitive needs: No Hearing needs: No Vision needs: No Questionnaire PHQ-9 Over the last 2 weeks, how often have you been bothered by any of the following problems? 1. Little interest or pleasure in doing things: not at all 2. Feeling down, depressed, or hopeless: not at all 3. Trouble falling or staying asleep, or sleeping too much: not at all 4. Feeling tired or having little energy: several days 5. Poor appetite or overeating: several days 6. Feeling bad about yourself - or that you are a failure or have let yourself or your family down: not at all 7. Trouble concentrating on things, such as reading the newspaper or watching television: not at all 8. Moving or speaking so slowly that other people could have noticed. Or the opposite - being so fidgety or restless that you have been moving around a lot more than usual: not at all 9. Thoughts that you would be better off or of hurting yourself in some way: not at all Total score: 2 Depression Screening Interpretation: Negative Depression Screening Done: Yes Source: Developed by Drs. Sergio Schaefer, Kelly Viveros, Anant Chacon and colleagues, with an educational juan from [employer]. Thrive Questionnaire Date Thrive assessed: 04/21/24 I am a: Patient What is your living situation today?: I choose not to answer this question Within the past 12 months, did the food you bought not last and you didn't have the money to get more?: I choose not to answer this question Within the past 12 months, did you worry whether your food would run out before you got money to buy more?: I choose not to answer this question Do you have trouble paying for medicines?: I choose not to answer this question Do you have trouble getting transportation to medical appointments?: I choose not to answer this question Do you have trouble paying your heating and electricity bill?: I choose not to answer this question Do you have trouble taking care of your child, family member or friend?: I choose not to answer this question Do you have trouble with day-to-day activities such as bathing, preparing meals, shopping, managing finances, etc.?: I choose not to answer this question Are you currently unemployed and looking for a job?: I choose not to answer this question Are you interested in more education?: I choose not to answer this question Please select the resources that you would like help with: None Currently or been in a relationship where the following occur: I choose not to answer THRIVE Score: 0 JOE-7 AMB Questionnaire JOE-7 Date JOE - 7 assessed: 04/26/24 Feeling nervous, anxious, or on edge: 0 = Not at all Not being able to stop or control worryin = Not at all Worrying too much about different things: 0 = Not at all Trouble relaxin = Not at all Being so restless that it is hard to sit still: 0 = Not at all Becoming easily annoyed or irritable: 0 = Not at all Feeling afraid as if something awful might happen: 0 = Not at all Total JOE-7 score (0-4 normal; 5-9 mild; 10-14 moderate; 15-21 severe): 0 Source: Developed by Drs. Sergio Schaefer, Kelly Viveros, Anant Chacon and colleagues, with an educational juan from [employer]. Physical exam (Primary Care) Vital Signs: Last Vital Signs Temp 99.0 F 11/12/24 14:58 Pulse 84 11/12/24 14:58 Resp 17 11/12/24 14:58 BP 124/80 11/12/24 14:58 Pulse Ox 97 11/12/24 14:58 Oxygen Delivery Method Room Air 11/12/24 14:58 BMI result Body Mass Index 32.4 Tobacco/Smoking Status: Tobacco use Status Tobacco use date assessed 11/12/24 11/12/24 15:05 Patient Tobacco Use Status Never used Tobacco 11/12/24 14:58 e-Cigarette/Vaping Use Never Used 11/12/24 14:58 PHQ-9: PHQ-9 Score PHQ-9: Total score 2 11/12/24 15:05 Depression Screening Interpretation: Negative Thrive Assessment: Date of Thrive Assessment Date Thrive assessed 04/21/24 11/12/24 14:58 Currently or been in a relationship where the following occur: I choose not to answer Immunizations Boostrix Tdap 2.5 Lf unit-8 mcg-5 Lf/0.5 mL intramuscular syringe Performing Provider: ESPERANZA Cesar Performing Location: [facility] Administered by: ISABEL Dougherty on 11/12/24 16:33 Dose Route Admin Location Dispensed Lot Number Expiration Date [facility] Milling Planer Operator 0.5 mL IM Left Deltoid 0.5 mL [id number] 12/07/26 75965-939-37 Click [employer] Me Now Total Dispensed Waste 0.5 mL 0 % VIS Given Date VIS Provided VIS Publication Date 11/12/24 Single Vaccine 20 Eligibility Eligibility Date Funding Source Not [facility] Eligible 11/12/24 Private Coding Level of Care Code Est Pt Prev Care >65y(33188) Diagnoses Encounter for routine adult physical exam with abnormal findings Z. Aortic stenosis I35.0 Liver cyst K76.89 Kidney cysts N28.1 Assessment & Plan Assessment & Plan (1) Encounter for routine adult physical exam with abnormal findings: Code(s): Z00. - Encounter for general adult medical examination with abnormal findings Category: Medical (2) Aortic stenosis: Code(s): I35.0 - Nonrheumatic aortic (valve) stenosis Category: Medical (3) Liver cyst: Code(s): K76.89 - Other specified diseases of liver Category: Medical (4) Kidney cysts: Code(s): N28.1 - Cyst of kidney, acquired Category: Medical Plan . Orders: Orders Complete Blood Count Auto Diff Today Z00.01 - Encounter for general adult medical examination with abnormal findings UA CC w/rflx Micro + Cult Today Z00.01 - Encounter for general adult medical examination with abnormal findings Comprehensive [place]. Panel Fast Today Z00.01 - Encounter for general adult medical examination with abnormal findings TSH reflex Free T4 Today Z00.01 - Encounter for general adult medical examination with abnormal findings Lipid Panel Today Z00.01 - Encounter for general adult medical examination with abnormal findings TDaP Immunization Today Z23 - Encounter for immunization
[2024-11-12 14:58] VITALS: BP 124/80; PULSE 84; RESP 17; TEMP 37.2; O2SAT 97; BMI 32.4
--- OUTSIDE RECORDS SUMMARY | 2024-11-12 16:54 | XMS_ITS | Encounter Summary ---
Author Organization [facility] Address [address] [place] [address] Phone Care Team Providers Care Double Surface Operator Name Role Phone Elvie Rabago MD Primary Care Provider Jordan Dominguez NP Unavailable [phone] César Rodrigez MD Unavailable [phone] Jordan Dominguez NP Unavailable [phone] Jordan Dominguez NP Primary Care Provider + Encounter Details Date Type Department Care Team (Late st Contact Info) Description 05/16/2023 Procedure Pass [facility] Radiology [address] [place] [address] Social History Tobacco Use Types Packs/Day Years [...] Description 01/18/2025 11:40 AM EST Office Visit [facility] [address] [place] [address] Figueroa May MD [address] [place] [address] [email or web address] documented as of this encounter Visit Diagnoses Not on filedocumented in this encounter Care Teams Double Surface Operator Relationship Specialty Start Date End Date Elvie Rabago MD [address] [place] [address] PCP - General 05/16/23 06/12/24 Jordan Dominguez NP [address] [place] [address] PCP - General Nurse Practitioner 06/13/24 Jordan Dominguez NP [address] [place] [address] [place] [address] Nurse Practitioner 05/17/23 05/17/23 César Rodrigez MD [address] [place] [address] Dr Bridges [address] [place] [address] [place] [address] Cardiology 05/17/23 05/25/23 Jordan Dominguez NP [address] [place] [address] [place] [address] Nurse Practitioner 05/26/23 documented as of this encounter Additional Source Comments The information contained in this document represents components of the legal health record. It is not the complete legal health record.[facility]
--- OUTSIDE RECORDS SUMMARY | 2024-11-12 16:54 | XMS_ITS | Encounter Summary ---
Author Organization [facility] Address [address] [place] [address] Phone Care Team Providers Care Tool And Die Maker Level Five Name Role Phone Elvie Rabago MD Primary Care Provider Jordan Dominguez NP Unavailable [phone] Jordan Dominguez NP Primary Care Provider + Encounter Details Date Type Department Care Team (Late st Contact Info) Description 07/04/2023 Telephone [facility] [address] [place] [address] Figueroa May MD [address] [place] [address] [email or web address] Social History Tobacco Use Types Packs/Day Years [...] Description 01/18/2025 11:40 AM EST Office Visit [facility] [address] [place] [address] Figueroa May MD [address] [place] [address] [email or web address] documented as of this encounter Visit Diagnoses Not on filedocumented in this encounter Care Teams Tool And Die Maker Level Five Relationship Specialty Start Date End Date Elvie Rabago MD [address] [facility] [place] [address] PCP - General 05/16/23 06/12/24 Jordan Dominguez NP [address] [place] [address] [place] [address] PCP - General Nurse Practitioner 06/13/24 Jordan Dominguez NP [address] [place] [address] [place] [address] Nurse Practitioner 05/26/23 documented as of this encounter Additional Source Comments The information contained in this document represents components of the legal health record. It is not the complete legal health record.[facility]
--- OUTSIDE RECORDS SUMMARY | 2024-11-12 16:55 | XMS_ITS | Patient Health Record ---
[facility] Address [address] [facility] [place] [address] Care Team Providers Care Security Assistant Name Role Phone George Lopez MD Primary Care Provider Aleena Collier Unavailable [phone] Reason For Referral No Information Social History Tobacco use other than smoking: Question Answer Notes Are you an other tobacco user? No Problems No Known Problems Plan Of Treatment No Information Insurance Providers Payer Name Payer Address Payer Phone Subscriber Number Group Number Insured Name Patient Relationship to Insured Coverage Start Date Coverage End Date [employer] [address] [place] [address] [id number] Audi Wagoner Self - patient is the insured Medical (General) History Medical History History ICD Code Measles
--- OUTSIDE RECORDS SUMMARY | 2024-11-12 16:55 | XMS_ITS | Encounter Summary ---
Author Organization [facility] Address [address] [place] [address] Phone Care Team Providers Care Coil Winding Supervisor Name Role Phone Elvie Rabago MD Primary Care Provider Jordan Dominguez NP Unavailable [phone] César Rodrigez MD Unavailable [phone] Jordan Dominguez NP Unavailable [phone] Jordan Dominguez NP Primary Care Provider + Encounter Details Date Type Department Care Team (Late st Contact Info) Description 05/16/2023 Procedure Pass [facility] Radiology [address] [place] [address] Social History Tobacco Use Types Packs/Day Years [...] Description 01/18/2025 11:40 AM EST Office Visit [facility] [address] [place] [address] Figueroa May MD [address] [place] [address] [email or web address] as of this encounter Visit Diagnoses Not on filedocumented in this encounter Care Teams Coil Winding Supervisor Relationship Specialty Start Date End Date Elvie Rabago MD [address] [facility] [place] [address] PCP - General 05/16/23 06/12/24 Jordan Dominguez NP [address] [facility] [place] [address] PCP - General Nurse Practitioner 06/13/24 Jordan Dominguez NP [address] [place] [address] [place] [address] Nurse Practitioner 05/17/23 05/17/23 César Rodrigez MD [address] [place] [address] Dr Bridges [address] [place] [address] [place] [address] Cardiology 05/17/23 05/25/23 Jordan Dominguez NP [address] [place] [address] [place] [address] Nurse Practitioner 05/26/23 documented as of this encounter Additional Source Comments The information contained in this document represents components of the legal health record. It is not the complete legal health record.[facility]
--- OUTSIDE RECORDS SUMMARY | 2024-11-12 16:55 | XMS_ITS | Encounter Summary ---
Author Organization [facility] Address [address] [place] [address] [place] [phone] Phone Care Team Providers Care Clinical Psychology Professor Name Role Phone Elvie Rabago MD Primary Care Provider Jordan Dominguez NP Unavailable [phone] Jordan Dominguez NP Primary Care Provider + Encounter Details Date Type Department Care Team (Late st Contact Info) Description 05/26/2023 Procedure Pass [facility] [address] [place] [address] Social History Tobacco Use Types Packs/Day Years [...] Description 01/18/2025 11:40 AM EST Office Visit [facility] [address] [place] [address] Figueroa May MD [address] [place] [address] [email or web address] documented as of this encounter Visit Diagnoses Not on filedocumented in this encounter Care Teams Clinical Psychology Professor Relationship Specialty Start Date End Date Elvie Rabago MD [address] [place] [address] [place] [address] PCP - General 05/16/23 06/12/24 Jordan Dominguez NP [address] [place] [address] [place] [address] PCP - General Nurse Practitioner 06/13/24 Jordan Dominguez NP [address] [place] [address] [place] [address] Nurse Practitioner 05/26/23 documented as of this encounter Additional Source Comments The information contained in this document represents components of the legal health record. It is not the complete legal health record.[facility]
--- OUTSIDE RECORDS SUMMARY | 2024-11-12 16:55 | XMS_ITS | Encounter Summary ---
Author Organization [facility] Address [address] [place] [address] [place] [address] Phone Care Team Providers Care Eyelet Machine Operator Name Role Phone Elvie Rabago MD Primary Care Provider Jordan Dominguez NP Unavailable [phone] Jordan Dominguez NP Primary Care Provider + Encounter Details Date Type Department Care Team (Late st Contact Info) Description 06/02/2023 Procedure Pass [facility] EKG [address] [place] [address] Social History Tobacco Use Types Packs/Day Years [...] Description 01/18/2025 11:40 AM EST Office Visit [facility] [address] [place] [address] Figueroa May MD [address] [place] [address] [email or web address] documented as of this encounter Visit Diagnoses Not on filedocumented in this encounter Care Teams Eyelet Machine Operator Relationship Specialty Start Date End Date Elvie Rabago MD [address] [place] [address] [place] [address] PCP - General 05/16/23 06/12/24 Jordan Dominguez NP [address] [place] [address] [place] [address] PCP - General Nurse Practitioner 06/13/24 Jordan Dominguez NP [address] [place] [address] [place] [address] Nurse Practitioner 05/26/23 documented as of this encounter Additional Source Comments The information contained in this document represents components of the legal health record. It is not the complete legal health record.[facility]
--- OUTSIDE RECORDS SUMMARY | 2024-11-12 16:55 | XMS_ITS | Patient Health Record ---
Author Organization [facility] Address [address] [place] [address] Care Team Providers Care Courtesy Bus Driver Name Role Phone DIYA DOMINGUEZ Primary Care Provider Sergio Rodgers Unavailable [phone] Allergies No Known Allergies Results Component Value Reference Range Notes Pathology (Not yet reviewed by provider) Interpretation: Performing Lab:[facility], [address] [place] [id number] Notes/Report: Reason For Referral Referring Provider First Name DIYA Referring Provider Last Name GELY Referred Organization [facility] Referred Provider Sergio Alcala Referred Address [address] [facility] [address] [place] [phone], Referred Provider Specialty Gastroentero logy General Notes Ara Hanson 2024 01:51:37 PM >requested a new [facility] referral from Diya Dominguez's office for visit with Dr. Alcala on 06-13-24 [phone] Referral Priority Routine Medications Medication SIG (Take, [...] Problem Status W/U Status Risk Notes Problem [id number] Encounter for screening for malignant neoplasm of colon (Z12.11) Active confirmed Problem 439196744 History of adenomatous polyp of colon (Z86.010) Active confirmed Problem [id number] Preprocedural examination (Z01.818) Active confirmed Problem [id number] Pre-procedural examination (Z01.818) Active confirmed Problem 91454870 Diarrhea of presumed infectious origin (R19.7) Active confirmed Problem [id number] Serrated polyp o f colon (K63.5) Active confirmed Vital Signs Temperature 97.5 degrees Fahrenheit 06/13/2024 Blood pressure diastolic 01 mm Hg 06/13/2024 Height 72 in 06/13/2024 Blood pressure systolic 001 mm Hg 06/13/2024 Weight 267 lbs 06/13/2024 BMI 36.21 kg/m2 06/13/2024 Procedures Procedure Date Ordered Date Performed Result Body Sit e COLONOSCOPY 06/13/2024 N/A Encounters Encounter Location Date Provider Diagnosis [facility] [address] [place], [place] [id number] 08/20/2024 Sergio Alcala [facility] [address] [facility] [address] [place] [phone] 06/13/2024 Sergio Alcala Encounter for screening for malignant neoplasm of colon Z12.11 ; Pre-procedural examination Z01.818 ; History of adenomatous polyp of colon Z86.010 and Serrated polyp of colon K63.5 [facility] [address] [facility] [address] [place] [address] 06/13/2024 Sergio Alcala Assessments Encounter Date Diagnosis [...] anesthesia care. Since he just saw his cover creaser in [place] last month we will obtain clearance from [...] anesthesia care. Since he just saw his cover creaser in [place] last month we will obtain clearance from [...] anesthesia care. Since he just saw his cover creaser in [place] last month we will obtain clearance from [...] anesthesia care. Since he just saw his cover creaser in [place] last month we will obtain clearance from [...] Insured Coverage Start Date Coverage End Date [employer] [address] [place] [phone] [id number] AUDI WAGONER Self - patient is the insured Medical (General) History Medical History History ICD Code Denies ND,DM,CVA,Lung disease,renal dise ase Reports a neg. flex sig or a colonoscopy in his 40's Colonoscopy 04/2018 1 sessile serrated po lyp and 1 tubular adenoma removed Giardia in 2020 treated successfully wit h Flagyl Thoracic aortic aneurysm wit h a bicuspid aortic valve followed by cardiology at [facility] in [place]. He was last seen there in April 2024 and had an echocardiogram. The plan is to continue to observe things with yearly exams and there is currently no indication for surgery. BPH Hyperlipidemia Hypertension Surgical History Surgery Date(Month/Year)
--- OUTSIDE RECORDS SUMMARY | 2024-11-12 16:55 | XMS_ITS | Encounter Summary ---
Author Organization [facility] Address [address] [place] [phone] Phone Care Team Providers Care Drug Safety Physician Name Role Phone Elvie Rabago MD Primary Care Provider Jordan Dominguez NP Unavailable [phone] Jordan Dominguez NP Primary Care Provider + Reason for Referral * MRI/CAT Scan - Closed Specialty Diagnoses / Procedures Referred By Lisa shabazz Referred To Contact Radiology Diagnoses Aortic valve stenosis, etiology of cardiac valve disease unspecified Procedures CT 3D Reconstruction Stent Plan And Surv Figueroa May MD Phone: tel: fax: [email or web address] Referral ID Status Reason Start Date Expiration Date Visits Re quested Visits Authorized [id number] Closed 05/26/2023 11/22/2023 1 1 Encounter Details Date Type Department Care Team (Late st Contact Info) Description 05/26/2023 Ancillary Orders [facility] Cardiac Surgery [address] [place] [address] Figueroa May MD [address] [place] [address] [email or web address] Aortic valve stenosis, etiology of cardiac valve disease unspecified (Primary Dx) Social History Tobacco Use Types Packs/Day Years [...] Description 01/18/2025 11:40 AM EST Office Visit [facility] Cardiovascular Clinic [address] [place] [address] Figueroa May MD [address] [place] [phone] [email or web address] documented as of this encounter Results * CT 3D Reconstruction Stent Plan And Surv (05/26/2023 4:19 PM EDT) Anatomical Region Laterality Modality Heart, Thoracic Vasculature Comp uted Tomography 05/27/2023 7:39 AM EDT Impressions 05/27/2023 8:32 AM EDT * Pre-op TAVR measurements in the narrative. * Aortic valve: bicuspid, Dariana type 0. Calcium score 2438. * 2 cm indeterminate lesion in the left kidney upper pole which has increased in size when compared to prior scan. An abdominal MRI is recommended for further assessment. 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 Follow-up recommendations were communicated and documented using a closed loop communication system. Narrative 05/27/2023 8:[address] ANGIO CHEST WITH AND WITHOUT CONTRAST, CT ANGIO ABDOMEN/PELVIS WITH CONTRAST, CT 3D RECONSTRUCTION STENT PLAN AND SURV TECHNIQUE: Multidector-row CTA of the chest, abdomen and pelvis was performed before and after administration of intravenous contrast using tailored dose modulation techniques. Images were reconstructed in the axial, coronal, and sagittal planes, including angiographic image post-processing. COMPARISON: CT ABDOMEN/PELVIS OUTSIDE (NO INTERPRETATION) FINDINGS: VASCULAR: LVOT Calcification: mild. Aortic valve: bicuspid, Dariana type 0. Calcium score 2438. Coronary arteries: No calcifications. 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 Mild atherosclerotic disease in the aortic arch, descending, abdominal aorta. Aortic arch calcifications: Mild calcifications. Brachiocephalic trunk: Normal. No aneurysm, stenosis, dissection or occlusion. Right subclavian artery: Normal. No aneurysm, stenosis, dissection or occlusion. Proximal segment of the left common carotid artery: Normal. No aneurysm, stenosis, dissection or occlusion. Left subclavian artery: Normal. No aneurysm, stenosis, dissection or occlusion. 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 No aneurysm, stenosis, dissection or occlusion. Right renal artery: Normal. No aneurysm, stenosis, dissection or occlusion. Left renal artery: Normal. No aneurysm, stenosis, dissection or occlusion. Inferior mesenteric artery: Normal. No aneurysm, stenosis, dissection or occlusion. Dilated bilateral internal iliac arteries, measures up to 1.3 cm. Annulus measurements: Cardiac phase used quantification: 30% Maximum diameter: 36 mm Minimum diameter: 28.2 mm Mean diameter: 32.1 mm Area: 773 mm2 Perimeter: 100 mm Optimum gantry angles: SLOVAK 0, CAU 78 LYFT DRIVER 0, SLOVAK 20 SLOVAK 30, LYFT DRIVER 68 Coronary ostia height: Right: 24.5 mm (to annular plane) Left: 19.6 mm (to annular plane) Aortic measurements (maximum lumen diameter short-axis to centerline): Sinuses of Valsalva: 4.4 x 4.1 Sinotubular junction: 4.8 x 4.4 cm Ascending aorta: 4.5 x 4.4 cm Iliofemoral minimum diameters: Right: 9.4 x 11.3 mm Left: 9.6 x 10.6 mm NONVASCULAR: Devices/Tubes/Lines: None. Lungs: No pulmonary nodules or consolidation. The airways are clear. Pleura: No pleural effusion or pneumothorax. Fat-containing small Bochdalek hernia on the left. Mediastinum: No thyroid nodules. No pericardial effusion. Concentric hypertrophy of the left ventricle wall. Chest Wall: No chest wall mass. Liver: Unchanged 4 cm hypodense lesion in the right lobe of the liver, likely cyst. Biliary: No biliary ductal dilatation. Spleen: No splenomegaly. Pancreas: No ductal dilatation, peripancreatic fluid, or stranding. Adrenal Glands: No nodules. Kidneys/Ureters: Unchanged hypodense lesion in the right kidney. 3 cm hypodense lesion in the left kidney inferior pole, increased in size and compared to prior. 2 cm relatively hyperdense lesion in the left kidney upper pole which has increased in size. Bowel: No distention or wall thickening. Peritoneum/Retroperitoneum: No masses, pneumoperitoneum, or fluid. Lymph Nodes: No lymphadenopathy. Pelvic Organs/Bladder: Mild prostatomegaly Bones and Soft Tissues: Fat-containing right-sided inguinal hernia. Diffuse degenerative changes of the bones. Procedure Note Dano Mcfadden MD - 05/27/2023 CT ANGIO CHEST WITH AND WITHOUT CONTRAST, CT ANGIO ABDOMEN/PELVIS WITHCONTRAST, CT 3D RECONSTRUCTION STENT PLAN AND SURV TECHNIQUE: Multidector-row CTA of the chest, abdomen and pelvis wasperformed before and after administration of intravenous contrast usingtailored dose modulation techniques. Images were reconstructed in theaxial, coronal, and sagittal planes, including angiographic imagepost-processing. COMPARISON: CT ABDOMEN/PELVIS OUTSIDE (NO INTERPRETATION) FINDINGS: VASCULAR: LVOT Calcification: mild. Aortic valve: bicuspid, Dariana type 0. Calcium score 2438. Coronary arteries: No calcifications. 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 Mild atherosclerotic disease in theaortic arch, descending, abdominal aorta. Aortic arch calcifications: Mild calcifications. Brachiocephalic trunk: Normal. No aneurysm, stenosis, dissection orocclusion. Right subclavian artery: Normal. No aneurysm, stenosis, dissection orocclusion. Proximal segment of the left common carotid artery: Normal. No aneurysm,stenosis, dissection or occlusion. Left subclavian artery: Normal. No aneurysm, stenosis, dissection orocclusion. Celiac axis: Focal isolated dissection of the celiac axis and associateddilatation of the vessel measures 1.3 cm Superior mesenteric artery: Normal. No aneurysm, stenosis, dissection orocclusion. Right renal artery: Normal. No aneurysm, stenosis, dissection orocclusion. Left renal artery: Normal. No aneurysm, stenosis, dissection orocclusion. Inferior mesenteric artery: Normal. No aneurysm, stenosis, dissection orocclusion. Dilated bilateral internal iliac arteries, measures up to 1.3 cm. Annulus measurements: Cardiac phase used quantification: 30% Maximum diameter: 36 mm Minimum diameter: 28.2 mm Mean diameter: 32.1 mm Area: 773 mm2 Perimeter: 100 mm Optimum gantry angles: SLOVAK 0, CAU 78 LYFT DRIVER 0, SLOVAK 20 SLOVAK 30, LYFT DRIVER 68 Coronary ostia height: Right: 24.5 mm (to annular plane) Left: 19.6 mm (to annular plane) Aortic measurements (maximum lumen diameter short-axis to centerline): Sinuses of Valsalva: 4.4 x 4.1 Sinotubular junction: 4.8 x 4.4 cm Ascending aorta: 4.5 x 4.4 cm Iliofemoral minimum diameters: Right: 9.4 x 11.3 mm Left: 9.6 x 10.6 mm NONVASCULAR: Devices/Tubes/Lines: None. Lungs: No pulmonary nodules or consolidation. The airways are clear. Pleura: No pleural effusion or pneumothorax. Fat-containing smallBochdalek hernia on the left. Mediastinum: No thyroid nodules. No pericardial effusion. Concentrichypertrophy of the left ventricle wall. Chest Wall: No chest wall mass. Liver: Unchanged 4 cm hypodense lesion in the right lobe of the liver,likely cyst. Biliary: No biliary ductal dilatation. Spleen: No splenomegaly. Pancreas: No ductal dilatation, peripancreatic fluid, or stranding. Adrenal Glands: No nodules. Kidneys/Ureters: Unchanged hypodense lesion in the right kidney. 3 cmhypodense lesion in the left kidney inferior pole, increased in size andcompared to prior. 2 cm relatively hyperdense lesion in the left kidneyupper pole which has increased in size. Bowel: No distention or wall thickening. Peritoneum/Retroperitoneum: No masses, pneumoperitoneum, or fluid. Lymph Nodes: No lymphadenopathy. Pelvic Organs/Bladder: Mild prostatomegaly Bones and Soft Tissues: Fat-containing right-sided inguinal hernia.Diffuse degenerative changes of the bones. IMPRESSION: * Pre-op TAVR measurements in the narrative. * Aortic valve: bicuspid, Dariana type 0. Calcium score 2438. * 2 cm indeterminate lesion in the left kidney upper pole which hasincreased in size when compared to prior scan. An abdominal MRI isrecommended for further assessment. 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 Follow-up recommendations were communicated and documented using a closedloop communication system. us Figueroa May MD IMG CT Final Res ult documented in this encounter Visit Diagnoses Diagnosis Aortic valve stenosis, etiology of cardiac valve disease unspecified Aortic valve stenosis, etiology of cardiac valve disease unspecified- Primary documented in this encounter Care Teams Drug Safety Physician Relationship Specialty Start Date End Date Elvie Rabago MD [facility] [place] [address] PCP - General 05/16/23 06/12/24 Jordan Dominguez NP [address] [place] [address] [place] [address] PCP - General Nurse Practitioner 06/13/24 Jordan Dominguez NP [address] [place] [address] [place] [address] Nurse Practitioner 05/26/23 documented as of this encounter Additional Source Comments The information contained in this document represents components of the legal health record. It is not the complete legal health record.[facility]
--- OUTSIDE RECORDS SUMMARY | 2024-11-12 16:55 | XMS_ITS | Encounter Summary ---
Author Organization [facility] Address [address] [place] [address] [place] [phone] Phone Care Team Providers Care Finishing Machine Operator Name Role Phone Elvie Rabago MD Primary Care Provider Jordan Dominguez NP Unavailable [phone] Jordan Dominguez NP Primary Care Provider + Encounter Details Date Type Department Care Team (Late st Contact Info) Description 11/18/2023 Procedure Pass [facility] Echocardiography [address] [place] [address] Social History Tobacco Use Types Packs/Day Years [...] Encounters Date Type Department Care Team (Late Contact Info) Description 01/18/2025 11:40 AM EST Office Visit [facility] Cardiovascular Clinic [address] [place] [address] Figueroa May MD [address] [place] [address] [email or web address] documented as of this encounter Visit Diagnoses Not on filedocumented in this encounter Care Teams Finishing Machine Operator Relationship Specialty Start Date End Date Elvie Rabago MD [facility] [place] [address] PCP - General 05/16/23 06/12/24 Jordan Dominguez NP [address] [place] [address] [place] [address] PCP - General Nurse Practitioner 06/13/24 Jordan Dominguez NP [address] [place] [address] [place] [address] Nurse Practitioner 05/26/23 documented as of this encounter Additional Source Comments The information contained in this document represents components of the legal health record. It is not the complete legal health record.[facility]
--- OUTSIDE RECORDS SUMMARY | 2024-11-12 16:55 | XMS_ITS | Clinical Summary ---
Author Organization [facility] Address [address] [place] [phone] Phone Care Team Providers Care Fusing Furnace Loader Name Role Phone Jordan Dominguez LIMOUSINE DRIVER Unavailable [phone] Jordan Dominguez LIMOUSINE DRIVER Primary Care Provider + Allergies No known active allergies Medications fluocinolone acetonide (DERMOTIC) 0.01 % Drop Place 5 drops into the right ear 3 (three) times a week. 04/14/2023 Active atorvastatin (LIPITOR) 20 MG tablet Take 20 mg by mouth daily. 10/27/2023 Active lisinopril (PRINIVIL,ZESTRI L) 10 MG tablet Take 1 tablet (10 mg total) by mouth daily. 30 tablet 12 12/08/2023 Active Social History Tobacco Use Types Packs/Day Years [...] on file Sexual Orientation Not on file Last Filed Vital Signs Vital Sign Reading Time Taken Comments Blood Pressure 138/78 05/18/2024 11:37 AM EDT Pulse 77 05/18/2024 11:37 AM EDT Temperature - - Respiratory Rate - - Oxygen Saturation 95% 05/18/2024 11: 37 AM EDT Inhaled Oxygen Concentration - - Weight 123.1 kg (271 lb 4.8 oz) 025 11:37 AM EDT with shoes Height 182.9 cm (6') 05/18/2024 11:37 AM EDT Body Mass Index 36.79 05/18/2024 11:37 AM EDT Plan of Treatment Upcoming Encounters Date Type Department Care Team (Late st Contact Info) Description 01/18/2025 11:40 AM EST Office Visit [facility] Cardiovascular Clinic [address] [place] [address] Figueroa May MD [address] [place] [address] [email or web address] Health Maintenance Due Date Last Done Comments DEPRESSION SCREENING 1970 SMOKING Hx and SMOKELESS TOBACCO SCREENING 10/30/1971 HEPATITIS C SCREENING 1976 HIV ONE-TIME SCREENING (18-6 5 YEARS) 1976 COLOGUARD 10/30/2003 COLONOSCOPY 10/30/2003 COLORECTAL CANCER SCREENING 10/30/2003 FIT TEST 10/30/2003 FOBT 10/30/2003 SIGMOIDOSCOPY 10/30/2003 VIRTUAL COLONOSCOPY 10/30/2003 PNEUMOCOCCAL VACCINES (50+ years) (1 of 1 - PCV) 2008 ZOSTER VACCINES (1 of 2) 2008 Adult Td,Tdap Booster 10/25/2022 10/25/2012 , 04/23/2009 CREATININE LEVEL 05/25/2024 05/26/2023 LIPID PANEL 05/25/2024 05/26/2023 POTASSIUM LEVEL 05/25/2024 05/26/2023 INFLUENZA VACCINE (#1) 2024 , 11/25/2017 COVID-19 VACCINE (3 - 2024-2 6 season) 2024 06/24/2020, 05/27/2020 BLOOD PRESSURE 11/17/2024 05/18/2024 SCREENING FOR DIABETES 05/25/2026 05/26/2023 RSV VACCINE (1 - 1-dose 75+ series) 2033 HEPATITIS A VACCINES Aged Out No long er eligible based on patient's age to complete this topic HIB VACCINES Aged Out No longer eligi ble based on patient's age to complete this topic MENINGOCOCCAL VACCINES (ACWY) Aged Out No longer eligible based on patient's age to complete this topic MENINGOCOCCAL VACCINES (B) Aged Out N o longer eligible based on patient's age to complete this topic Medical Devices Not on file Procedures Procedure Name Priority Date/Time Associated Diagnosis Comments LIPID PANEL Routine 05/26/2023 12:15 PM EDT RENAL PANEL STAT 05/26/2023 12:15 PM EDT Aortic valve stenosis, etiology of cardiac valve disease unspecified from Last 3 Months or Most Recently Relevant to Health Maintenance Results * (ABNORMAL) Renal panel (05/26/2023 12:15 PM EDT) SODIUM 140 136 - 145 mmol/L [facility] POTASSIUM 3.9 3.4 - 5.1 mmol/L [facility] CHLORIDE 105 98 - 107 mmol/L [facility] CO2 20(L) 22 - 31 mmol/L [facility] BUN 20 6 - 23 mg/dL [facility] CREATININE 1.02 0.50 - 1.20 mg/dL [facility] GLUCOSE 88 70 - 100 mg/dL [facility] CALCIUM 9.3 8.8 - 10.7 mg/dL [facility] PHOSPHORUS 2.8 2.4 - 4.3 mg/dL [facility] ALBUMIN 4.3 3.5 - 5.2 g/dL [facility] EGFR 82 >59 mL/min/1.7 3m2 [facility] Comment:Estimated glomerular filtration rate calculated using the CKD-EPI refit equation. ANION GAP 15 7 - 17 mmol/L [facility] 05/26/2023 12:1 5 PM EDT 05/26/2023 12:41 PM EDT Figueroa May MD LAB BLOOD ORDERABLES Nallely l Result Performing Organization Address City/State/[facility] Co de Phone Number [facility] [address] [place] [address] * (ABNORMAL) Lipid panel (05/26/2023 12:15 PM EDT) CHOLESTEROL 204(H) <200 mg/dL [facility] TRIGLYCERIDES 136 35 - 150 mg/dL [facility] HDL 44 40 - 80 mg/dL [facility] CALCULATED LDL 133(H) 50 - 129 mg/dL [facility] VLDL 27 <31 mg/dL [facility] CARDIAC RISK RATIO 4.6(H) 0.0 - 4.0 [facility] 05/26/2023 12:1 5 PM EDT 05/26/2023 12:41 PM EDT Comment:#LIPID ADDED 2:23PM PER [id number] Figueroa May MD LAB BLOOD ORDERABLES Nallely l Result Performing Organization Address City/[facility] Co de Phone Number [facility] [address] [place] [phone] from Last 3 Months or Most Recently Relevant to Health Maintenance Insurance POS EPO MEDICARE PART A & B [facility] POS EPO [facility] Address: [facility] [id number] [place] [phone] MEDICARE PART A & B [facility] POS EPO [facility] Address: [address] [place] [id number] MEDICARE PART A & B POS EPO [facility] Address: [address] [place] [id number] MEDICARE PART A & B [facility] POS EPO MEDICARE PART A & B [facility] POS EPO MEDICARE PART A & B Care Teams Fusing Furnace Loader Relationship Specialty Start Date End Date Jordan Dominguez NP [facility] [place] [address] PCP - General Nurse Practitioner 06/13/24 Jordan Dominguez NP [address] [place] [address] Nurse Practitioner 05/26/23 Additional Source Comments The information contained in this document represents components of the legal health record. It is not the complete legal health record.[facility]
--- OUTSIDE RECORDS SUMMARY | 2024-11-12 16:55 | XMS_ITS | Encounter Summary ---
Author Organization [facility] Address [address] [place] [address] Phone Care Team Providers Care Unemployment Inspector Name Role Phone Elvie Rabago MD Primary Care Provider Jordan Dominguez NP Unavailable [phone] Jordan Dominguez NP Primary Care Provider + Reason for Referral * MRI/CAT Scan - Closed Specialty Diagnoses / Procedures Referred By Lisa shabazz Referred To Contact Radiology Diagnoses Aortic valve stenosis, etiology of cardiac valve disease unspecified Dyspnea, unspecified type Procedures NC Myocardial Perfusion Stress Single NC Myocardial Perfusion Exercise Multiple Figueroa May MD Phone: tel: fax: mailto:[email or web address] Referral ID Status Reason Start Date Expiration Date Visits Re quested Visits Authorized [id number] Closed 06/27/2023 07/27/2023 1 1 Encounter Details Date Type Department Care Team (Latest Contact Info) Description 06/27/[address] [facility] Cardiovascular Clinic [address] [place], [place] [id number] Figueroa May MD [address] [place] [address] [email or web address] Aortic valve stenosis, etiology of cardiac valve disease unspecified (Primary Dx); Dyspnea, unspecified type Social History Tobacco Use Types Packs/Day Years [...] Description 01/18/2025 11:40 AM EST Office Visit [facility] [address] [place] [address] Figueroa May MD [address] [place] [address] [email or web address] documented as of this encounter Results * NC Myocardial Perfusion Stress Single (06/27/2023 9:09 AM EDT) Anatomical Region Laterality Modality Heart Nuclear Medicine 06/27/2023 7:30 AM EDT Narrative 06/27/2023 7:[address] May, Your patient Audi Wagoner, a 62 year old male with no known CAD was referred to us for an exercise treadmill myocardial perfusion SPECT study to evaluate for dyspnea. His cardiac risk factors include obesity. The patient's resting ECG showed normal sinus rhythm and nonspecific ST-T wave abnormalities. Tc-99m Sestamibi Exercise Stress-only SPECT Protocol: Mr. Wagoner underwent a myocardial perfusion SPECT study following the IV administration of 9.1 mCi of Tc-99m Sestamibi at peak stress. Gated myocardial perfusion SPECT images were obtained post stress. Stress imaging was performed on 27-Jun-2023. Mr. Wagoner exercised for 9:31 minutes of a Nate protocol. The heart rate increased from 95 bpm at rest to a peak heart rate of 162 bpm (104% age predicted maximal heart rate), and the blood pressure increased from 126/86 mm Hg at rest to 162/80 mm Hg at peak exercise (RPP: 25249). Exercise was terminated due to fatigue. The symptomatic response to exercise was non-ischemic. The blood pressure response was normal. The ECG response to exercise indicated no significant ST-T changes. During exercise, frequent PACs, PVCs, bigeminy, couplets and occasional quadruplets were observed. Mr. Wagoner's functional capacity was 10.9 METS, which is good for his age and gender. His heart rate recovery was 25 bpm (normal HRR > 12 bpm). His Mckeon treadmill score was 9.5 which places him at a low prognostic risk (lower than 1% mortality per year). Intensity Heart Blood RPE Speed (Grade Rate Pressure (Scale (MPH) or Puentes) (bmp) (mm Hg) of 10) BASELINE Supine 95 142/82 Standing 89 126/86 STRESS Stage 1 1.7 10 120 140/88 Stage 2 2.5 12 136 156/84 Stage 3 3.4 14 153 162/80 Stage 4 4.2 16 162 RECOVERY 1 Minute 137 180/92 3 Minute 112 166/90 5 Minute 106 148/94 Stress-only Myocardial Perfusion Images: Image quality was excellent. The images demonstrated normal LV size and normal tracer uptake in the lungs. They also demonstrated normal RV size with normal RV tracer uptake. There were no regional perfusion defects seen on the stress images. Semi-quantitative analysis: The scan results demonstrated no evidence of ischemia and/or scar (summed stress score: 0). Reference %Myocardium Scan Results abnormal 0% Normal 1-4% Mildly abnormal 5-9% Moderately abnormal >=10% Severely abnormal Gated SPECT: The images demonstrated a post-stress LV ejection fraction of 55% and ESVI 32 ml/m^2 with normal LV volumes. There was normal regional wall motion and thickening. The RV function appeared normal. Incidental Findings: None. In summary, the test results were: 1. Functional Capacity: 10.9 METS 2. Peak Heart Rate: 162 bpm (104% age-predicted maximal heart rate). 3. Symptomatic Response: Non-ischemic. 4. Peak Blood Pressure: 162/80 mm Hg. 5. Blood Pressure Response: Normal. 6. ECG Response: Negative test for myocardial ischemia based on absence of ECG changes. 7. Stress-induced Arrhythmia: frequent PACs, PVCs, bigeminy, couplets and occasional quadruplets. 8. Myocardial Perfusion: Normal. 9. Global LV Function: Normal. Final impression: 1. The patient's test results are normal and suggest no evidence of flow-limiting CAD at a good exercise workload (10.9 METS). 2. Normal global LV systolic function. 3. Frequent ectopy. Stress ECG tracings available from [facility]'s [employer]. The teaching physician, Dr. Mary Carmen Simpson, has supervised the procedure and performed the interpretation and reporting of the resulting data. Thank you for referring this patient to us. Sincerely yours, Stacey Jon M.D., Production Machine Shop Supervisor Niko Mccoy M.D., Cardiology Imaging Fellow Mary Carmen Simpson M.D., Attending Physician Procedure Note Mary Carmen Simpson MD, MPH - 06/27/[address] May, Your patient Audi Wagoner, a 62 year old male with no known CAD wasreferred to us for an exercise treadmill myocardial perfusion SPECT studyto evaluate for dyspnea. His cardiac risk factors include obesity. The patient's resting ECG showed normal sinus rhythm and nonspecific ST-Twave abnormalities. Tc-99m Sestamibi Exercise Stress-only SPECT Protocol: Mr. Wagoner underwent a myocardial perfusion SPECT study following the IVadministration of 9.1 mCi of Tc-99m Sestamibi at peak stress. Gatedmyocardial perfusion SPECT images were obtained post stress. Stressimaging was performed on 27-Jun-2023. Mr. Wagoner exercised for 9:31 minutes of a Nate protocol. The heartrate increased from 95 bpm at rest to a peak heart rate of 162 bpm (104%age predicted maximal heart rate), and the blood pressure increased ptky037/86 mm Hg at rest to 162/80 mm Hg at peak exercise (RPP: 56298). Exercise was terminated due to fatigue. The symptomatic response toexercise was non-ischemic. The blood pressure response was normal. TheECG response to exercise indicated no significant ST-T changes. Duringexercise, frequent PACs, PVCs, bigeminy, couplets and occasional quadruplets were observed. Mr. Wagoner's functional capacity was 10.9 METS, which is good for his ageand gender. His heart rate recovery was 25 bpm (normal HRR > 12 bpm).His Mckeon treadmill score was 9.5 which places him at a low prognostic risk(lower than 1% mortality per year). Intensity Heart Blood RPE Speed (Grade Rate Pressure (Scale (MPH) or Puentes) (bmp) (mm Hg) of 10) BASELINE Supine 95 142/82 Standing 89 126/86 STRESS Stage 1 1.7 10 120 140/88 Stage 2 2.5 12 136 156/84 Stage 3 3.4 14 153 162/80 Stage 4 4.2 16 162 RECOVERY 1 Minute 137 180/92 3 Minute 112 166/90 5 Minute 106 148/94 Stress-only Myocardial Perfusion Images: Image quality was excellent. The images demonstrated normal LV size andnormal tracer uptake in the lungs. They also demonstrated normal RV sizewith normal RV tracer uptake. There were no regional perfusion defects seen on the stress images. Semi-quantitative analysis: The scan results demonstrated no evidence of ischemia and/or scar (summedstress score: 0). Reference %Myocardium Scan Results abnormal 0% Normal 1-4% Mildly abnormal 5-9% Moderately abnormal >=10% Severely abnormal Gated SPECT: The images demonstrated a post-stress LV ejection fraction of 55% and ESVI32 ml/m^2 with normal LV volumes. There was normal regional wall motionand thickening. The RV function appeared normal. Incidental Findings: None. In summary, the test results were: 1. Functional Capacity: 10.9 METS 2. Peak Heart Rate: 162 bpm (104% age-predicted maximal heart rate). 3. Symptomatic Response: Non-ischemic. 4. Peak Blood Pressure: 162/80 mm Hg. 5. Blood Pressure Response: Normal. 6. ECG Response: Negative test for myocardial ischemia based on absenceof ECG changes. 7. Stress-induced Arrhythmia: frequent PACs, PVCs, bigeminy, couplets andoccasional quadruplets. 8. Myocardial Perfusion: Normal. 9. Global LV Function: Normal. Final impression: 1. The patient's test results are normal and suggest no evidence offlow-limiting CAD at a good exercise workload (10.9 METS). 2. Normal global LV systolic function. 3. Frequent ectopy. Stress ECG tracings available from [facility]'s [employer]. The teaching physician, Dr. Mary Carmen Simpson, has supervised the procedureand performed the interpretation and reporting of the resulting data. Thank you for referring this patient to us. Sincerely yours, Stacey Jon M.D., Production Machine Shop Supervisor Niko Mccoy M.D., Cardiology Imaging Fellow Mary Carmen Simpson M.D., Attending Physician us Figueroa S Sobieszczyk MD CV NM CARDIAC Final Res ult documented in this encounter Visit Diagnoses Diagnosis Aortic valve stenosis, etiology of cardiac valve disease unspecified Dyspnea, unspecified type Aortic valve stenosis, etiology of cardiac valve disease unspecified- Primary Dyspnea, unspecified type documented in this encounter Care Teams Unemployment Inspector Relationship Specialty Start Date End Date Elvie Rabgao MD [address] [place] [address] PCP - General 05/16/23 06/12/24 Jordan Dominguez NP [address] [place] [address] PCP - General Nurse Practitioner 06/13/24 Jordan Dominguez NP [address] [place] [address] [place] [address] Nurse Practitioner 05/26/23 documented as of this encounter Additional Source Comments The information contained in this document represents components of the legal health record. It is not the complete legal health record.[facility]
== END 2024-11-12 16:36 | disposition home or self-care (01) ==
LOC: HO.HMCC 14:54
PROVIDERS: PCP Nurse Practitioner Family; Visit Provider Nurse Practitioner Family
DX: Z00.01 Encounter for general adult medical examination with abnormal findings (principal); I35.0 Nonrheumatic aortic (valve) stenosis; K76.89 Other specified diseases of liver; N28.1 Cyst of kidney, acquired; Z23 Encounter for immunization

== ENCOUNTER → 2024-11-12 14:53 | Outpatient (BNVA) | payer OTHER, SELFPAY | PROVIDERS: PCP Nurse Practitioner Family; Visit Provider Nurse Practitioner Family | DX: Z00.01 Encounter for general adult medical examination with abnormal findings (principal); N28.1 Cyst of kidney, acquired; I35.0 Nonrheumatic aortic (valve) stenosis; K76.89 Other specified diseases of liver | CPT/HCPCS: 90471; 90715; 96127 ==

== ENCOUNTER 2025-01-05 06:38 | Outpatient (REF) | payer OTHER, SELFPAY ==
--- OUTSIDE RECORDS SUMMARY | 2023-07-06 05:00 | XMS_ITS ---
Author Organization [facility] Address [address] [place] [address] Care Team Providers Care Manager Marketing Name Role Phone DIYA HONG Primary Care Provider Sergio oRdgers [phone] REASON FOR VISIT screening Encounters Encounter Location Date Provider Diagnosis [facility] [place] [address] [place], [place] [address] [id number] 07/06/2023 Sergio Alcala Plan Of Treatment No Information Progress Notes * SHERON WAGONEROB: 9 (64 yo M)Acc No.[id number]:07/06/2023 COLON WITH MAC Patient: KODI REINOSO Provider: Luis Daniel Alcala MD :1960 A ge:62 Y S ex:Male Date:07/06/2023 Address:[address] [place] Pcp:DIYA HONG Subjective: * Chief Complaints: * S creening * The named appointment provid er may or may not be the originator of this progress note, and it is not deemed complete until electronically signed by the appointment provider. Sign off status: Pending * Provider: Luis Daniel Alcala MD Date: 0 07/06/2023 Generated for Jess lujan/Fred/eTransmitting on: 03/07/2024 06:42 AM EST
--- OUTSIDE RECORDS SUMMARY | 2024-08-20 06:30 | XMS_ITS ---
Author Organization [facility] Address [address] [place] [address] Care Team Providers Care Top Carrier Name Role Phone DIYA HONG Primary Care Provider Sergio Rodgers [phone] REASON FOR VISIT screening colon Encounters Encounter Location Date Provider Diagnosis [facility] Outpatient [address] [place], [place] [address] [id number] 08/20/2024 Sergio Alcala Plan Of Treatment No Information Progress Notes * SHERON WAGONEROB: 9 (64 yo M)Acc No.[id number]:08/20/2024 COLON WITH MAC Patient: KODI REINOSO Provider: Luis Daniel Alcala MD :1960 A ge:63 Y S ex:Male Date:08/20/2024 Address:[place] Pcp:DIYA HONG Subjective: * Chief Complaints: * S creening colon Billing Information: * Procedure Codes: * The named appointment provid er may or may not be the originator of this progress note, and it is not deemed complete until electronically signed by the appointment provider. Sign off status: Pending * Provider: Luis Daniel Alcala MD Date: 0 08/20/2024 Generated for Jess lujan/Fatonyg/eTransmitting on: 1 03/07/2024 06:43 AM EST
--- OUTSIDE RECORDS SUMMARY | 2025-01-05 06:43 | XMS_ITS | Encounter Summary ---
Author Organization [facility] Address [address] [place] [address] [place] [address] Phone Care Team Providers Care Junior Linux Systems Administrator Name Role Phone Elvie Rabago MD Primary Care Provider Jordan Dominguez NP Unavailable [phone] Jordan Dominguez NP Primary Care Provider + Reason for Referral * MRI/CAT Scan - Closed Specialty Diagnoses / Procedures Referred By Lisa shabazz Referred To Contact Radiology Diagnoses Aortic valve stenosis, etiology of cardiac valve disease unspecified Procedures CT 3D Reconstruction Stent Plan And Surv Figueroa May MD Phone: tel: fax: mailto:[email or web address] Referral ID Status Reason Start Date Expiration Date Visits Re quested Visits Authorized [id number] Closed 05/26/2023 11/22/2023 1 1 Encounter Details Date Type Department Care Team (Late st Contact Info) Description 05/26/2023 Ancillary Orders [facility] Cardiac Surgery [address] [place] [address] Figueroa May MD [address] [place] [address] [email or web address] Aortic valve stenosis, etiology of cardiac valve [...] Description 01/18/2025 11:40 AM EST Office Visit [facility] Cardiovascular Clinic [address] [place] [address] Figueroa May MD [address] [place] [address] [email or web address] documented as of this encounter Results * [...] mm2 Perimeter: 100 mm Optimum gantry angles: MICRONESIAN 0, CAU [address] MAGISTRATE 0, MICRONESIAN 20 MICRONESIAN 30, NIGHT COURT MAGISTRATE 68 Coronary ostia height: Right: 24.5 mm [...] degenerative changes of the bones. Procedure Note Dnao Mcfadden MD - 05/27/2023 CT ANGIO CHEST [...] mm2 Perimeter: 100 mm Optimum gantry angles: MICRONESIAN 0, CAU [address] MAGISTRATE 0, MICRONESIAN 20 MICRONESIAN 30, NIGHT COURT MAGISTRATE 68 Coronary ostia height: Right: 24.5 mm [...] Primary documented in this encounter Care Teams Junior Linux Systems Administrator Relationship Specialty Start Date End Date Elvie Rabago MD [facility] [place] [address] PCP - General 05/16/23 06/12/24 Jordan Dominguez NP [address] [place] [address] [place] [address] PCP - General Nurse Practitioner 06/13/24 Jordan Dominguez NP [address] [place] [address] [place] [address] Nurse Practitioner 05/26/23 documented as of this encounter Additional Source Comments The information contained in this document represents components of the legal health record. It is not the complete legal health record.[facility]
--- OUTSIDE RECORDS SUMMARY | 2025-01-05 06:43 | XMS_ITS | Clinical Summary ---
Author Organization [facility] Address [address] [place] [address] Phone Care Team Providers Care Check Services Clerk Name Role Phone Jordan Dominguez WHITE SHOE RAGGER Unavailable [phone] Jordan Dominguez WHITE SHOE RAGGER Primary Care Provider + Allergies No known active allergies Medications fluocinolone acetonide (DERMOTIC) 0.01 % Drop Place 5 drops into the right ear 3 (three) times a week. 4 Active atorvastatin (LIPITOR) 20 MG tablet Take 20 mg by mouth daily. 4 Active lisinopril (PRINIVIL,ZESTR IL) 10 MG tablet TAKE 1 TABLET BY MOUTH EVERY DAY 90 tablet 4 5 Active lisinopril (PRINIVIL,ZESTR IL) 10 MG tablet Take 1 tablet (10 mg total) by mouth daily. 30 tablet 12 4 12/15/19 25 Discontinued Encounters Date Type Department Care Team Description 12/07/2024 Refill [facility] Cardiovascular Clinic [address] [place] [address] Shanell Zurita PA-C Medication Refill from Last 3 Months Social History Tobacco Use Types Packs/Day Years [...] Description 01/18/2025 11:40 AM EST Office Visit [facility] Cardiovascular Clinic [address] [place] [address] Figueroa May MD [address] [place], [place] [id number] [email or web address] Health Maintenance Due Date Last Done Comments DEPRESSION SCREENING 1970 SMOKING Hx and SMOKELESS TOBACCO SCREENING 10/30/1971 HEPATITIS C SCREENING 1976 COLOGUARD 10/30/2003 COLONOSCOPY 10/30/2003 COLORECTAL CANCER SCREENING 10/30/2003 FIT TEST 10/30/2003 FOBT 10/30/2003 SIGMOIDOSCOPY 10/30/2003 VIRTUAL COLONOSCOPY 10/30/2003 PNEUMOCOCCAL VACCINES (50+ years) (1 of 1 - PCV) 2008 ZOSTER VACCINES (1 of 2) 2008 Adult Td,Tdap Booster 10/25/2022 10/25/2012 , 04/23/2009 CREATININE LEVEL 05/25/2024 05/26/2023 POTASSIUM LEVEL 05/25/2024 05/26/2023 INFLUENZA VACCINE (#1) 2024 9, 11/25/2017 COVID-19 VACCINE (3 - 2024-2 6 season) 2024 06/24/2020, 05/27/2020 SCREENING FOR DIABETES 05/25/2026 05/26/2023 LIPID PANEL 05/25/2028 05/26/2023 RSV VACCINE (1 - 1-dose 75+ [...] EDT) SODIUM 140 136 - 145 mmol/L [facility] POTASSIUM 3.9 3.4 - 5.1 mmol/L [facility] CHLORIDE 105 98 - 107 mmol/L [facility] CO2 20(L) 22 - 31 mmol/L [facility] BUN 20 6 - 23 mg/dL [facility] CREATININE 1.02 0.50 - 1.20 mg/dL [facility] GLUCOSE 88 70 - 100 mg/dL [facility] CALCIUM 9.3 8.8 - 10.7 mg/dL [facility] PHOSPHORUS 2.8 2.4 - 4.3 mg/dL [facility] ALBUMIN 4.3 3.5 - 5.2 g/dL [facility] EGFR 82 >59 mL/min/1.7 3m2 [facility] Comment:Estimated glomerular filtration rate calculated using the CKD-EPI refit equation. ANION GAP 15 7 - 17 mmol/L [facility] 05/26/2023 12:1 5 PM EDT 05/26/2023 12:41 PM EDT Figueroa May MD LAB BLOOD BKR ORDERABLES Final Result Performing Organization Address [facility] de Phone Number [facility] [address] [place] [address] * (ABNORMAL) Lipid panel (05/26/2023 12:15 PM EDT) CHOLESTEROL 204(H) <200 mg/dL [facility] TRIGLYCERIDES 136 35 - 150 mg/dL [facility] HDL 44 40 - 80 mg/dL [facility] CALCULATED LDL 133(H) 50 - 129 mg/dL [facility] VLDL 27 <31 mg/dL [facility] CARDIAC RISK RATIO 4.6(H) 0.0 - 4.0 [facility] 05/26/2023 12:1 5 PM EDT 05/26/2023 12:41 PM EDT Comment:#LIPID ADDED 2:23PM PER [id number] Figueroa May MD LAB BLOOD BKR ORDERABLES Final Result Performing Organization Address [facility] de Phone Number [facility] [address] [place] [address] from Last 3 Months or Most Recently Relevant to Health Maintenance Insurance O POS EPO MEDICARE PART A & B O POS EPO MEDICARE PART A & B O POS EPO MEDICARE PART A & B O POS EPO MEDICARE PART A & B [facility] E[facility] MEDIC[facility] PART A & B [facility] POS EPO MEDICARE PART A & B Care Teams Check Services Clerk Relationship Specialty Start Date End Date Jordan Dominguez NP [facility] [place] [address] PCP - General Nurse Practitioner 06/13/24 Jordan Dominguez NP [address] [place] [address] [place] [address] Nurse Practitioner 05/26/23 Additional Source Comments The information contained in this document represents components of the legal health record. It is not the complete legal health record.[facility]
--- OUTSIDE RECORDS SUMMARY | 2025-01-05 06:43 | XMS_ITS | Encounter Summary ---
Author Organization [facility] Address [address] [place] [address] [place] [address] Phone Care Team Providers Care Application Integrator Name Role Phone Elvie Rabago MD Primary Care Provider Jordan Dominguez NP Unavailable [phone] Jordan Dominguez NP Primary Care Provider + Encounter Details Date Type Department Care Team (Late st Contact Info) Description 06/02/2023 Procedure Pass [facility] E[facility] [address] [place] [address] Social History Tobacco Use Types Packs/Day Years [...] Description 01/18/2025 11:40 AM EST Office Visit [facility] Cardiovascular Clinic [address] [place] [address] Figueroa May MD [address] [place] [address] [email or web address] documented as of this encounter Visit Diagnoses Not on filedocumented in this encounter Care Teams Application Integrator Relationship Specialty Start Date End Date Elvie Rabago MD [address] [place] [address] [place] [address] PCP - General 05/16/23 06/12/24 Jordan Dominguez NP [address] [place] [address] [place] [address] PCP - General Nurse Practitioner 06/13/24 Jordan Dominguez NP [address] [place] [address] [place] [address] Nurse Practitioner 05/26/23 documented as of this encounter Additional Source Comments The information contained in this document represents components of the legal health record. It is not the complete legal health record.[facility]
--- OUTSIDE RECORDS SUMMARY | 2025-01-05 06:43 | XMS_ITS | Patient Health Record ---
Author [facility] Address [address] [facility] [place] [address] Care Team Providers Care Well Driller Name Role Phone George Lopez MD Primary Care Provider Aleena Collier Unavailable [phone] Reason For Referral No Information Social History Tobacco use other than smoking: Question Answer Notes Are you an other tobacco user? No Problems No Known Problems Plan Of Treatment No Information Insurance Providers Payer Name Payer Address Payer Phone Subscriber Number Group Number Insured Name Patient Relationship to Insured Coverage Start Date Coverage End Date [employer] [address] [place] [phone] [id number] Audi Wagoner Self - patient is the insured Medical (General) History Medical History History ICD Code Measles
--- OUTSIDE RECORDS SUMMARY | 2025-01-05 06:43 | XMS_ITS | Encounter Summary ---
Author Organization [facility] Address [address] [place] [address] Phone Care Team Providers Care Melter Supervisor Name Role Phone Elvie Rabago MD Primary Care Provider Jordan Dominguez NP Unavailable [phone] César Rodrigez MD Unavailable [phone] Jordan Dominguez NP Unavailable [phone] Jordan Dominguez NP Primary Care Provider + Encounter Details Date Type Department Care Team (Late st Contact Info) Description 05/16/2023 Procedure Pass [facility] [address] [place] [address] Social History Tobacco Use Types Packs/Day Years [...] Description 01/18/2025 11:40 AM EST Office Visit [facility] Cardiovascular Clinic [address] [place] [address] Figueroa May MD [address] [place] [address] [email or web address] documented as of this encounter Visit Diagnoses Not on filedocumented in this encounter Care Teams Melter Supervisor Relationship Specialty Start Date End Date Elvie Rabago MD [address] [facility] [place] [address] PCP - General 05/16/23 06/12/24 Jordan Dominguez NP [address] [facility] [place] [address] PCP - General Nurse Practitioner 06/13/24 Jordan Dominguez NP [address] [place] [address] [place] [address] Nurse Practitioner 05/17/23 05/17/23 César Rodrigez MD [address] [place] [address] Dr Bridges [address] [place] [address] [place] [id number] Cardiology 05/17/23 05/25/23 Jordan Dominguez NP [address] [place] [address] [place] [address] Nurse Practitioner 05/26/23 documented as of this encounter Additional Source Comments The information contained in this document represents components of the legal health record. It is not the complete legal health record.[facility]
--- OUTSIDE RECORDS SUMMARY | 2025-01-05 06:43 | XMS_ITS | Encounter Summary ---
Author Organization [facility] Address [address] [place] [address] [place] [address] Phone Care Team Providers Care Manufacturing Engineering Professor Name Role Phone Elvie Rabago MD Primary Care Provider Jordan Dominguez NP Unavailable [phone] Jordan Dominguez NP Primary Care Provider + Encounter Details Date Type Department Care Team (Late st Contact Info) Description 05/26/2023 Procedure Pass [facility] [address] [place] [address] Social History Tobacco Use Types Packs/Day Years [...] Description 01/18/2025 11:40 AM EST Office Visit [facility] Cardiovascular Clinic [address] [place] [address] Figueroa May MD [address] [place] [address] [email or web address] documented as of this encounter Visit Diagnoses Not on filedocumented in this encounter Care Teams Manufacturing Engineering Professor Relationship Specialty Start Date End Date Elvie Rabago MD [address] [place] [address] [place] [address] PCP - General 05/16/23 06/12/24 Jordan Dominguez NP [address] [place] [address] [place] [address] PCP - General Nurse Practitioner 06/13/24 Jordan Dominguez NP [address] [place] [address] [place] [address] Nurse Practitioner 05/26/23 documented as of this encounter Additional Source Comments The information contained in this document represents components of the legal health record. It is not the complete legal health record.[facility]
--- OUTSIDE RECORDS SUMMARY | 2025-01-05 06:43 | XMS_ITS | Encounter Summary ---
Author Organization [facility] Address [address] [place] [address] Phone Care Team Providers Care Jammer Operator Name Role Phone Elvie Rabago MD Primary Care Provider Jordan Dominguez NP Unavailable [phone] Jordan Dominguez NP Primary Care Provider + Encounter Details Date Type Department Care Team (Late st Contact Info) Description 07/04/2023 Telephone [facility] [address] [place] [address] Figueroa May MD [address] [place] [address] [email or web address] Social History Tobacco Use Types Packs/Day Years [...] Description 01/18/2025 11:40 AM EST Office Visit [facility] [address] [place] [address] Figueroa May MD [address] [place] [address] [email or web address] documented as of this encounter Visit Diagnoses Not on filedocumented in this encounter Care Teams Jammer Operator Relationship Specialty Start Date End Date Elvie Rabago MD [address] [place] [address] PCP - General 05/16/23 06/12/24 Jordan Dominguez NP [address] [place] [address] [place] [address] PCP - General Nurse Practitioner 06/13/24 Jordan Dominguez NP [address] [place] [address] [place] [address] Nurse Practitioner 05/26/23 documented as of this encounter Additional Source Comments The information contained in this document represents components of the legal health record. It is not the complete legal health record.[facility]
--- OUTSIDE RECORDS SUMMARY | 2025-01-05 06:43 | XMS_ITS | Patient Health Record ---
Author Organization [facility] Address [address] [place] [phone] Care Team Providers Care Memorandum Statement Clerk Name Role Phone DIYA DOMINGUEZ Primary Care Provider Sergio Rodgers Unavailable [phone] Allergies No Known Allergies Results Component Value Reference Range Notes Pathology Reviewed date:11/27/2024 11:41:05 PM Interpretation: Performing Lab:[facility], [address] [place] [phone] Notes/Report: Reason For Referral Referring Provider First Name DIYA Referring Provider Last Name GELY Referred Organization [facility] Referred Provider Sergio Alcala Referred Address [address] [place] [address],Blood ite [address] [place] [phone], Referred Provider Specialty Gastroentero logy General Notes Ara Hanson 2024 01:51:37 PM >requested a [facility] referral from Diya Dominguez's office for visit with Dr. Alcala on 06-13-24 [phone] Referral Priority Routine Medications Medication SIG (Take, Route, Frequency, Duration) Notes Start Date End Date Status Atorvastatin Calcium 20 MG Tablet Oral; Duration: 90 Days Active Lisinopril 10 MG Tablet Oral; Duration: 90 Days Active Indomethacin ER 75 MG Capsule Extended Release TAKE 1 CAPSULE BY MOUTH TWICE A DAY Oral; Duration: 10 Days Not-Taking/PRN Finasteride 5 MG Tablet TAKE 1 TABLET BY MOUTH DAILY FOR 90 DAYS Oral; Duration: 90 Days Active Immunizations Vaccine Route Administration Date Status Comme nts Influenza Unknown 12/15/2017 Administered Influenza Unknown 07/16/2020 Refused Influenza Unknown 12/29/2022 Refused Influenza Unknown 06/13/2024 Refused Social History Tobacco Use: Social History Observation Description Date Details (start date - stop date) Never Smoker NA - NA Social History Drugs/Alcohol: Social Info Question Answer Notes Alcohol Screen Did you have a drink containing alcohol in the past year? Yes How often did you have a drink containing alcohol in the past year? Monthly or less (1 point) How many drinks did you have on a typical day when you were drinking in the past year? 1 or 2 drinks (0 point) How often did you have 6 or more drinks on one occasion in the past year? 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 [employer] Section Notes: Nonsmoker, no sig alcohol Nonsmoker, no sig alcohol Nonsmoker, no sig alcohol Nonsmoker, no sig alcohol Problems Problem Type SNOMED Code ICD Code Onset Dates Problem Status W/U Status Risk Notes Problem Screening for malignant neoplasm of colon (896397862) Encounter for screening for malignant neoplasm of colon (Z12.11) Active confirmed Problem History of adenomatous polyp of colon (499371513) History of adenomatous polyp of colon (Z86.010) Active confirmed Problem Preprocedural examination (759745011631717) Preprocedural examination (Z01.818) Active confirmed Problem Pre-procedure evaluation check (624379203) Pre-procedural examination (Z01.818) Active confirmed Problem Diarrhea of presumed infectious origin (06112761) Diarrhea of presumed infectious origin (R19.7) Active confirmed Problem Serrated polyp of colon (645751733) Serrated polyp of colon (K63.5) Active confirmed Vital Signs Temperature 97.5 degrees Fahrenheit 06/13/2024 Blood pressure diastolic 01 mm Hg 06/13/2024 Height 72 in 06/13/2024 Blood pressure systolic 001 mm Hg 06/13/2024 Weight 267 lbs 06/13/2024 BMI 36.21 kg/m2 06/13/2024 Procedures Procedure Date Ordered Date Performed Result Body Sit e COLONOSCOPY 06/13/2024 N/A Encounters Encounter Location Date Provider Diagnosis [facility] Outpatient [address] [place] [phone] 08/20/2024 Sergio Alcala [facility] [address] [place] [address] 06/13/2024 Sergio Alcala Encounter for screening for malignant neoplasm of colon Z12.11 ; Pre-procedural examination Z01.818 ; History of adenomatous polyp of colon Z86.010 and Serrated polyp of colon K63.5 [facility] [address] [place] [address] 06/13/2024 Sergio Alcala [facility] [address] [place] [address] 06/13/2024 Sergio Alcala [facility] [address] [place] [address] 11/27/2024 Sergio Alcala Assessments Encounter Date Diagnosis (ICD [...] anesthesia care. Since he just saw his tar and ammonia pump operator in [place] last month we will obtain clearance from [...] anesthesia care. Since he just saw his tar and ammonia pump operator in [place] last month we will obtain clearance from [...] anesthesia care. Since he just saw his tar and ammonia pump operator in [place] last month we will obtain clearance from [...] anesthesia care. Since he just saw his tar and ammonia pump operator in [place] last month we will obtain clearance from [...] Insured Coverage Start Date Coverage End Date [facility] [id number] GIANNI GOSS [id number] AUDI WAGONER Self - patient is the insured Medical (General) History Medical History History ICD Code Denies PR,DM,CVA,Lung disease,renal dise ase Reports a neg. flex sig or a colonoscopy in his 40's Colonoscopy 04/2018 1 sessile serrated po lyp and 1 tubular adenoma removed Giardia in 2020 treated successfully wit h Flagyl Thoracic aortic aneurysm wit h a bicuspid aortic valve followed by cardiology at [facility] in [place]. He was last seen there in April 2024 and had an echocardiogram. The plan is to continue to observe things with yearly exams and there is currently no indication for surgery. BPH Hyperlipidemia Hypertension Surgical History Surgery Date(Month/Year)
--- OUTSIDE RECORDS SUMMARY | 2025-01-05 06:43 | XMS_ITS | Encounter Summary ---
Author Organization [facility] Address [address] [place] [address] Phone Care Team Providers Care Electrical Assembly Supervisor Name Role Phone Elvie Rabago MD Primary Care Provider Jordan Dominguez NP Unavailable [phone] Jordan Dominguez NP Primary Care Provider + Reason for Referral * MRI/CAT Scan - Closed Specialty Diagnoses / Procedures Referred By Lisa shabazz Referred To Contact Radiology Diagnoses Aortic valve stenosis, etiology of cardiac valve disease unspecified Dyspnea, unspecified type Procedures NC Myocardial Perfusion Stress Single NC Myocardial Perfusion Exercise Multiple Figueroa May MD Phone: tel: fax: mailto:[email or web address] Referral ID Status Reason Start Date Expiration Date Visits Re quested Visits Authorized [id number] Closed 06/27/2023 07/27/2023 1 1 Encounter Details Date Type Department Care Team (Latest Contact Info) Description 06/27/2023 Ancillary Orders [facility] [address] [place], [place] [id number] Figueroa May MD [address] [place] [address] [email or web address] Aortic valve stenosis, etiology of cardiac valve [...] Description 01/18/2025 11:40 AM EST Office Visit [facility] [address] [place] [address] Figueroa May MD [address] [place] [address] [email or web address] documented as of this encounter Results [...] 162/80 mm Hg at peak exercise (RPP: 66116). Exercise was terminated due to fatigue. The [...] Frequent ectopy. Stress ECG tracings available from [facility]'s [employer]. The teaching physician, Dr. Mary Carmen Simpson, has supervised the procedure and performed the interpretation and reporting of the resulting data. Thank you for referring this patient to us. Sincerely yours, Stacey Jon M.D., Home Coordinator Niko Mccoy M.D., Cardiology Imaging Fellow Mary [...] heart rate), and the blood pressure increased ixhy703/86 mm Hg at rest to 162/80 mm Hg at peak exercise (RPP: 08661). Exercise was terminated due to fatigue. The [...] Frequent ectopy. Stress ECG tracings available from [facility]'s [employer] Web [employer]. The teaching physician, Dr. Mary Carmen Simpson, has supervised the procedureand performed the interpretation and reporting of the resulting data. Thank you for referring this patient to us. Sincerely yours, Stacey Jon M.D., Home Coordinator Niko Mccoy M.D., Cardiology Imaging Fellow Mary Carmen Simpson M.D., Attending Physician us Figueroa S Sobieszczyk MD CV [place] CARDIAC Final Res ult documented in this encounter Visit Diagnoses Diagnosis Aortic valve stenosis, etiology of cardiac valve disease unspecified Dyspnea, unspecified type Aortic valve stenosis, etiology of cardiac valve disease unspecified- Primary Dyspnea, unspecified type documented in this encounter Care Teams Electrical Assembly Supervisor Relationship Specialty Start Date End Date Elvie Rabago MD [address] [facility] [place] [address] PCP - General 05/16/23 06/12/24 Jordan Dominguez NP [address] [facility] [place] [address] PCP - General Nurse Practitioner 06/13/24 Jordan Dominguez NP [address] [place] [address] [place] [address] Nurse Practitioner 05/26/23 documented as of this encounter Additional Source Comments The information contained in this document represents components of the legal health record. It is not the complete legal health record.[facility]
--- OUTSIDE RECORDS SUMMARY | 2025-01-05 06:43 | XMS_ITS | Encounter Summary ---
Author Organization [facility] Address [address] [place] [address] [place] [address] Phone Care Team Providers Care Seat Joiner Chainstitch Name Role Phone Elvie Rabago MD Primary Care Provider Jordan Dominguez NP Unavailable [phone] Jordan Dominguez NP Primary Care Provider + Encounter Details Date Type Department Care Team (Late st Contact Info) Description 11/18/2023 Procedure Pass [facility] Echocardiography [address] [place] [address] Social History Tobacco Use Types Packs/Day Years [...] Description 01/18/2025 11:40 AM EST Office Visit [facility] [address] [place] [address] Figueroa May MD [address] [place] [address] [email or web address] documented as of this encounter Visit Diagnoses Not on filedocumented in this encounter Care Teams Seat Joiner Chainstitch Relationship Specialty Start Date End Date Elvie Rabago MD [facility] [place] [address] PCP - General 05/16/23 06/12/24 Jordan Dominguez NP [address] [place] [address] [place] [address] PCP - General Nurse Practitioner 06/13/24 Jordan Dominguez NP [address] [place] [address] [place] [address] Nurse Practitioner 05/26/23 documented as of this encounter Additional Source Comments The information contained in this document represents components of the legal health record. It is not the complete legal health record.[facility]
--- OUTSIDE RECORDS SUMMARY | 2025-01-05 06:43 | XMS_ITS | Encounter Summary ---
Author Organization [facility] Address [address] [place] [address] Phone Care Team Providers Care Core Loader Name Role Phone Elvie Rabago MD Primary Care Provider Jordan Dominguez NP Unavailable [phone] César Rodrigez MD Unavailable [phone] Jordan Dominguez NP Unavailable [phone] Jordan Dominguez NP Primary Care Provider + Encounter Details Date Type Department Care Team (Late st Contact Info) Description 05/16/2023 Procedure Pass [facility] [address] [place] [address] Social History Tobacco Use Types Packs/Day Years [...] Description 01/18/2025 11:40 AM EST Office Visit [facility] [address] [place] [address] Figueroa May MD [address] [place] [address] [email or web address] documented as of this encounter Visit Diagnoses Not on filedocumented in this encounter Care Teams Core Loader Relationship Specialty Start Date End Date Elvie Rabago MD [address] [place] [address] PCP - General 05/16/23 06/12/24 Jordan Dominguez NP [address] [place] [address] PCP - General Nurse Practitioner 06/13/24 Jordan Dominguez NP [address] [place] [address] [place] [address] Nurse Practitioner 05/17/23 05/17/23 César Rodrigez MD [address] [place] [address] Dr [place] [address] [place] [address] [place] [address] Cardiology 05/17/23 05/25/23 Jordan Dominguez NP [address] [place] [address] [place] [address] Nurse Practitioner 05/26/23 documented as of this encounter Additional Source Comments The information contained in this document represents components of the legal health record. It is not the complete legal health record.[facility]
[2025-01-05 11:05] LABS: MANUAL DIFF FLAG NO
[2025-01-05 11:11] LABS: Appearance Urine Clear; Glucose Urine UA Negative (Negative); PH 6.5 (5.0-9.0); Specific Gravity - Urine 1.020 (1.005-1.025)
[2025-01-05 11:12] LABS: Hematocrit 44.9 % (42.0-52.0); Hemoglobin 14.6 g/dl (14.0-18.0); Imm Gran Abs Auto 0.03 X10*3/uL (0.00-0.03); Imm Gran Pct Auto 0.5 % (0.0-0.4); Lymphocytes Absolute Auto 1.8 X10*3/uL (1.2-4.9); Mean Corpuscular HGB Conc 32.5 g/dl (31.0-36.0); Mean Corpuscular Hemoglobin 28.7 pg (27.0-33.0); Mean Corpuscular Volume 88.4 fL (80.0-98.0); NRBC Abs Auto 0.000 X10*3/uL (0.0-0.012); NRBC Pct Auto 0.0 /100WBC (0.0-0.2); Platelet Count 256 X10*3/uL (160-400); Red Blood Count 5.08 X10*6/uL (4.60-5.80); White Blood Count 6.5 X10*3/uL (4.8-10.8)
[2025-01-05 11:33] LABS: Alanine Aminotransferase 20 U/L (0-40); Albumin Level 4.5 g/dL (3.5-5.0); Alkaline Phosphatase 74 U/L (39-117); Anion Gap 13 (12-20); Aspartate Amino Transferase 25 U/L (5-37); Blood Urea Nitrogen 27 mg/dL (9-16); Calcium 9.6 mg/dL (8.4-10.2); Carbon Dioxide 29 mmol/L (22-29); Chloride 105 mmol/L (96-108); Cholesterol 156 mg/dL (<200); Estimated Glomerular Filt Rate > 60; HDL Cholesterol 50 mg/dL (>40); Potassium 5.0 mmol/L (3.3-5.1); Sodium 142 mmol/L (135-145); Total Protein 7.3 g/dL (6.5-8.0); Triglycerides 91 mg/dL (<150)
[2025-01-05 11:51] LABS: PSA,Total (Free>4and<10) 3.20 ng/mL (0.00-4.00)
== END 2025-01-05 06:39 | disposition home or self-care (01) ==
LOC: HO.HMGCLDS 06:38
PROVIDERS: Urology; PCP Nurse Practitioner Family; Visit Provider Nurse Practitioner Family
DX: Z00.00 Encounter for general adult medical examination without abnormal findings (principal); R97.20 Elevated prostate specific antigen [PSA]; Z12.5 Encounter for screening for malignant neoplasm of prostate; Z13.29 Encounter for screening for other suspected endocrine disorder; Z13.6 Encounter for screening for cardiovascular disorders
CPT/HCPCS: 36415; 80053; 80061; 81003; 84153; 84443; 85025